=== PATIENT | male | born 1965 | race Caucasian/White ===

== ENCOUNTER → 2017-10-24 | Outpatient (CLI) | payer BC, OTHER ==
[~2017-10-24] MED LIST: GLUCAGON FOR INJ 1 MG VIAL (J1610) As Ordered; ISOVUE-370 76% 100ML VIAL (Q9967) As Ordered; VoLumen 0.1% SUSPENSION 450ML BOTTLE As Ordered
== END ==
LOC: M RAD 11:45
DX: N28.1 Cyst of kidney, acquired (principal); K42.9 Umbilical hernia without obstruction or gangrene
CPT/HCPCS: Q9967

== ENCOUNTER → 2020-02-10 | Outpatient (CLI) | payer BC, OTHER ==
[~2020-02-10] MED LIST changes: -GLUCAGON FOR INJ 1 MG VIAL (J1610) As Ordered; -ISOVUE-370 76% 100ML VIAL (Q9967) As Ordered; +LISI20TA20 PO; -VoLumen 0.1% SUSPENSION 450ML BOTTLE As Ordered; +[UNRECOGNIZED DRUG - CODE] PO
== END ==
LOC: M LABSMTC 10:34
PROVIDERS: ATTEND Anesthesiology
DX: Z03.818 Encounter for observation for suspected exposure to other biological agents ruled out (principal); Z11.59 Encounter for screening for other viral diseases
CPT/HCPCS: C9803; U0002

== ENCOUNTER 2020-02-12 07:33 | Day surgery (SDC) | payer BC, OTHER ==
[~2020-02-12] VITALS: Ht 175.3 cm; Wt 132.4 kg
[~2020-02-12 07:33] MED LIST changes: +LIDOCAINE 2% 100MG/5ML SDV (FOR ANES.) As Ordered ONE; +NS 1,000 ML IV ONE; +propofoL 200 MG/20 ML VIAL As Ordered ONE
--- NOTE | 2020-02-12 08:42 | ROOR ---
Patient Name: Sterling Rosado Procedure Date: 02/12/2020 7:36 AM Date of : 1965 Age: 54 Room: [facility] Gender: Male Note Status: Finalized Procedure: Total Colonoscopy to Cecum Indications: Screening for colorectal malignant neoplasm Providers: Fahad Murillo MD Referring MD: TOM CHRISTIAN JR, MD Requesting Provider: Medicines: Monitored Anesthesia Care Complications: No immediate complications. Procedure: Pre-Anesthesia Assessment: - The heart rate, respiratory rate, oxygen saturations, blood pressure, adequacy of pulmonary ventilation, and response to care were monitored throughout the procedure. The Colonoscope was introduced through the anus and advanced to the cecum, identified by appendiceal orifice and ileocecal valve. The colonoscopy was performed without difficulty. The patient tolerated the procedure well. The quality of the bowel preparation was excellent. Findings: The perianal and digital rectal examinations were normal. Non-bleeding internal hemorrhoids were found during retroflexion. The hemorrhoids were small and Grade I (internal hemorrhoids that do not prolapse). No other significant abnormalities were identified in a careful examination of the remainder of the colon. The exam was otherwise without abnormality on direct and retroflexion views. Impression: - Non-bleeding internal hemorrhoids. - The examination was otherwise normal on direct and retroflexion views. - No specimens collected. - The exam was otherwise normal to the cecum. Recommendation: - Patient has a contact number available for emergencies. The signs and symptoms of potential delayed complications were discussed with the patient. Return to normal activities tomorrow. Written discharge instructions were provided to the patient. - High fiber diet. - Discharge patient to home. - Continue present medications. - Repeat colonoscopy in 10 years for screening purposes. - Return to referring physician. - The findings and recommendations were discussed with the patient's family. Fahad Murillo MD Fahad Murillo MD 02/12/2020 8:42:17 AM Electronically signed by Fahad Murillo MD Number of Addenda: 0 Note Initiated On: 02/12/2020 7:36 AM Estimated Blood Loss: Estimated blood loss: none.
[2020-02-12 09:01] VITALS: BP 111/62
== END 2020-02-12 09:02 | disposition home or self-care (01) ==
LOC: M OPP 07:33
PROVIDERS: ATTEND Internal Medicine Gastroenterology
DX: Z12.11 Encounter for screening for malignant neoplasm of colon (principal); K64.0 First degree hemorrhoids; Z79.899 Other long term (current) drug therapy

== ENCOUNTER → 2021-07-26 | Outpatient (CLI) | payer BC, OTHER ==
[~2021-07-26] MED LIST changes: -LIDOCAINE 2% 100MG/5ML SDV (FOR ANES.) As Ordered ONE; +METO1TAB7 PO; -NS 1,000 ML IV ONE; -propofoL 200 MG/20 ML VIAL As Ordered ONE
== END ==
LOC: M LABSMTC 10:31
PROVIDERS: ATTEND Anesthesiology
DX: Z01.812 Encounter for preprocedural laboratory examination (principal); Z20.822 Contact with and (suspected) exposure to COVID-19

== ENCOUNTER 2021-07-30 05:59 | Day surgery (SDC) | payer BC, OTHER ==
[~2021-07-30] VITALS: Ht 172.7 cm; Wt 134.2 kg
[2021-07-30] MEDS ORDERED: ceFAZolin SOD 2 GM in IV 1 EA IV ONE (06:00)
[2021-07-30] MEDS ORDERED: LIDOCAINE 1% MDV 20ML VIAL SQ PRN (06:00)
--- OUTSIDE RECORDS SUMMARY | 2021-07-30 06:05 | CCD | Continuity of Care Document ---
Author Author Sterling BUSTILLOS MD Organization Unknown Address [address] [place] [address] Phone [phone] Care Team Providers Care Chip Frier Name Role Phone Doctor N/A AUTM Unavailable Khadar Resendez MD AUTM [phone] Problems Active Problems Provider Date Essential hypertension Onset: 09/04/2017 Syncope Onset: Dehydration Onset: Leukocytosis Onset: JOSE - acute kidney injury Onset: 0 000 Obesity Onset: Sleep apnea Onset: Obstructive sleep apnea syndrome Tab Genao MD Onset: 07/26/2021 Morbid obesity Tab Genao MD Onset: 07/26/2021 Preoperative cardiovascular examination Tab Genao MD Onset: 07/26/2021 Social History Type Date Description Comments Sex Unknown Tobacco Use Start: Unknown Patient has never smoked Recreational Drug Use Never Used Drugs Smoking Status Reviewed: 07/26/21 Patient has never smoked Allergies and adverse reactions Description No Known Drug Allergies Medications Active Medications SIG Qnty Indications Ordering Provide r Date Metoprolol Succinate ER 100mg Tablets ER 24HR 1 by mouth every day 90tabs Tab Genao MD 07/26/2021 Immunizations Description No Information Available Vital Signs Date Vital Result Comment 07/26/2021 1:30pm BP Systolic 142 mmHg BP Diastolic 100 mmHg Heart Rate 97 /min Height 68 inches 5'8" Weight 296.00 lb BMI (Body Mass Index) 45.0 kg/m2 O2 % BldC Oximetry 97 % Results Test Acquired Date Facility Test Result H/L Range Note Order 07/27/2021 [facility] Nuclear Exercise/Myoview <pending> Procedures Date Code Description Status 07/26/2021 30948 Office/Outpatient Established Mo d MDM 30-39 Min Completed 07/09/2021 70666 Hospital Initial Care Level 3 Co mpleted 07/09/2021 06102 Echocardiography, Pr ofl,Tranthoracic, Realtime Image Documentatio Completed Medical Devices Description No Information Available Encounters Type Date Location Provider Dx Diagnosis Office Visit 07/26/2021 1:30p [facility] Tab Genao MD I10 Essential (primary) hypertension R55 Syncope and collapse Z01.810 Encounter for preprocedural cardiovascular examination E66.01 Morbid (severe) obesity due to excess calories G47.33 Obstructive sleep apnea (roseline lt) (pediatric) Office Visit 07/09/2021 1:07p [facility] Juan Bustillos MD R55 Syncope and collapse R42 Dizziness and giddiness I10 Essential (primary) hyperten jaylyn N17.9 Acute kidney failure, unspec ified I50.30 Unspecified diastolic (conge stive) heart failure Assessments Date Code Description Provider 07/27/2021 R55 Syncope and collapse Govind ulloa MD 07/27/2021 R42 Dizziness and giddiness Govind Amaya MD 07/27/2021 R00.0 Tachycardia, unspecified Govind Amaya MD 07/26/2021 I10 Essential (primary) hypertension Tab Genao MD 07/26/2021 R55 Syncope and collapse Tab weber MD 07/26/2021 Z01.810 Encounter for preprocedural card iovascular examination Tab Genao MD 07/26/2021 E66.01 Morbid (severe) obesity due to e xcess calories Tab Genao MD 07/26/2021 G47.33 Obstructive sleep apnea (adult) (pediatric) Tab Genao MD 07/09/2021 R55 Syncope and collapse Juan rivas MD 07/09/2021 R42 Dizziness and giddiness Juan flores MD 07/09/2021 I10 Essential (primary) hypertension Juan Bustillos MD 07/09/2021 N17.9 Acute kidney failure, unspecifie d Juan Bustillos MD 07/09/2021 I50.30 Unspecified diastolic (congestiv e) heart failure Juan Bustillos MD 07/09/2021 R55 Syncope and collapse Juan rivas MD 07/09/2021 R42 Dizziness and giddiness Juan flores MD 07/09/2021 E86.0 Dehydration Juan metcalf MD 07/09/2021 N17.9 Acute kidney failure, unspecifie d Juan Bustillos MD Plan of Treatment Future Appointment(s):* 01/27/2022 8:00 am - Tab Genao MD at [place] [facility] 07/26/2021 - Tab Genao MD* I10 Essential (primary) hypertension * R55 Syncope and collapse * Z01.810 Encounter for preprocedural cardiovascular examination * E66.01 Morbid (severe) obesity due to excess calories * G47.33 Obstructive sleep apnea (adult) (pediatric)* Recommendations:* This gentleman's blood pressure is still somewhat elevated and therefore the dose of metoprolol ER will be increased to 100 mg once a day. To assess for underl johnson coronary disease given his recent episode of syncope a stress Cardiolite test will be performed to assess for any evidence of stress-induced ischemia. I have encouraged him to work on losing weight. Results of lipid profile will be obtained. Office follow-up in 6 months. Functional Status Description No Information Available Mental Status Description No Information Available Referrals Refer to Dr Reason for Referral Status Appt Date Juan Bustillos MD Scheduled [address] [place] [id number] [phone]
--- OUTSIDE RECORDS SUMMARY | 2021-07-30 06:05 | CCD | Continuity of Care Document ---
Author Author Sterling ATWOOD MD Organization Unknown Address [address] [place] [address] Phone [phone] Care Team Providers Care Microbiology Soil Scientist Name Role Phone Doctor N/A AUTM Unavailable Khadar Resendez MD AUTM [phone] Problems Active Problems Provider Date Essential hypertension [...] <pending> Procedures Date Code Description Status 07/26/2021 89326 Office/Outpatient Established Mo d MDM 30-39 Min Completed 07/09/2021 87556 Hospital Initial Care Level 3 Co mpleted 07/09/2021 16093 Echocardiography, Pr ofl,Tranthoracic, Realtime Image Documentatio Completed Medical Devices Description No Information Available Encounters Type Date Location Provider Dx Diagnosis Office Visit 07/26/2021 1:30p [facility] Tab Genao MD I10 Essential (primary) hypertension R55 Syncope and collapse Z01.810 Encounter for preprocedural cardiovascular examination E66.01 Morbid (severe) obesity due to excess calories G47.33 Obstructive sleep apnea (roseline lt) (pediatric) Assessments Date Code Description Provider 07/27/2021 R55 Syncope and collapse Govind ulloa MD 07/27/2021 R42 Dizziness and giddiness Govind Atwood MD 07/27/2021 R00.0 Tachycardia, unspecified Govind Atwood MD 07/26/2021 I10 Essential (primary) hypertension Tab Genao MD 07/26/2021 R55 Syncope and collapse Tab weber MD 07/26/2021 Z01.810 Encounter for preprocedural card iovascular examination Tab Genao MD 07/26/2021 E66.01 Morbid (severe) obesity due to e xcess calories Tab Genao MD 07/26/2021 G47.33 Obstructive sleep apnea (adult) (pediatric) Tab Genao MD 07/09/2021 R55 Syncope and collapse Juan rivas MD 07/09/2021 I50.30 Unspecified diastolic (congestiv e) heart failure Juan Peña MD 07/09/2021 R42 Dizziness and giddiness Juan flores MD 07/09/2021 I10 Essential (primary) hypertension Juan Peña MD 07/09/2021 E86.0 Dehydration Juan metcalf MD 07/09/2021 N17.9 Acute kidney failure, unspecifie d Jaun Peña MD Plan of Treatment Future Appointment(s):* 01/27/2022 8:00 am - Tab Genao MD at [place] [facility] 07/26/2021 - Tab Genao MD* I10 [...] Description No Information Available Referrals Refer to Reason for Referral Status Appt Date Juan Peña MD Scheduled [address] [place] [phone]
--- OUTSIDE RECORDS SUMMARY | 2021-07-30 06:06 | CCD | Continuity of Care Document ---
Author Author Sterling Resendez MD Organization Unknown Address [address] [address] Phone [phone] Care Team Providers Care Tool And Die Designer Name Role Phone Khadar Resendez JR, MD AUTM Unavailable Problems Active Problems Provider Date Pure hypercholesterolemia Khadar Resendez MD Onset: 04/06 Obstructive sleep apnea syndrome Khadar Resendez MD Onset : 04/06/2011 Essential hypertension Khadar Resendez MD Onset: 04/06/20 11 Umbilical hernia Khadar Resendez MD Onset: 12/27/2011 Morbid obesity Khadar Resendez MD Onset: 12/27/2011 Metabolic syndrome X Khadar Resendez MD Onset: 09/26/2012 Social History Type Date Description Comments Sex Unknown ETOH Use Occasionally consumes liquor Tobacco Use Start: Unknown Patient has never smoked Allergies and adverse reactions Description No Known Drug Allergies Medications Active Medications SIG Qnty Indications Ordering Provide r Date Shingrix 50mcg/0.5ML Suspension Re c administer 0.5 milliliters intramuscular, repeat in 2 to 6 months 2units Khadar Resendez MD 11/13/2019 Lisinopril-Hydrochlorothiazide 20-25mg Tablets 1 by mouth every day 90tabs I10 Carlos Ngo 08/09/2017 Immunizations Description No Information Available Vital Signs Date Vital Result Comment 05/28/2021 10:28am BP Systolic 112 mmHg BP Diastolic 78 mmHg Heart Rate 88 /min Height 68 inches 5'8" Weight 290.00 lb O2 % BldC Oximetry 95 % BMI (Body Mass Index) 44.1 kg/m2 11/25/2020 7:53am BP Systolic 110 mmHg BP Diastolic 68 mmHg Heart Rate 66 /min Height 68 inches 5'8" Weight 299.00 lb BMI (Body Mass Index) 45.5 kg/m2 Results Test Acquired Date Facility Test Result H/L Range Note Complete Blood Count 05/28/2021 [facility] Reforestation Worker: Dr Khadar Resendez [place], [place] [id number] [phone] WBC 11.0 x10*3/UL High 4.1 - 10.9 RBC 5.56 x10*6/UL 4.20 - 6.30 Hemoglobin 16.4 g/dL 12.0 - 18.0 Hematocrit 49.5 % 37.0 - 51.0 MCV 88.9 fL 80.0 - 97.0 MCH 29.4 pg 26.0 - 32.0 MCHC 33.1 g/dL 31.0 - 38.0 RDW 13.6 % 11.6 - 13.7 PLT 385 x10*3/UL 140 - 440 MPV 8.5 FL 7.8 - 11.0 Lymph % 29.2 % 10.0 - 58.5 Mid % 5.7 % 1.7 - 9.3 Neut % 65.1 % 37.0 - 92.0 Lymph # 3.2 x10*3/UL 0.6 - 4.1 Mid # 0.6 x10*3/UL 0.1 - 0.6 Neut # 7.2 x10*3/UL 2.0 - 7.8 Comprehensive Chem Profile 05/28/2021 [facility] R[facility] Worker: Dr Khadar [place] [address] [phone] Glucose 93 mg/dL 74 - 99 1 BUN 26 mg/dL High 7 - 18 Creatinine 1.3 mg/dL 0.6 - 1.3 Sodium 139 mEq/L 136 - 145 Potassium 4.5 mEq/L 3.5 - 5.1 Chloride 103 mEq/L 98 - 107 Carbon Dioxide 31 mEq/L 21 - 32 Calcium 9.1 mg/dL 8.5 - 10.1 Alk. Phosphatase 74 mg/dL 46 - 116 Total Bilirubin 0.7 mg/dL 0.2 - 1.0 Ast (Sgot) 18 U/L 15 - 37 Alt (SGPT) 31 U/L 12 - 78 Albumin 3.5 g/dL 3.4 - 5.0 Total Protein 7.7 g/dL 6.4 - 8.2 A/G Ratio 0.83 CALC Low 1.00 - 1.90 GFR 57 mL/min Low >60 GFR >= 60 mL/min >60 2 Lipid Profile 05/28/2021 [facility] Reforestation Worker: [place] [address] [phone] Cholesterol 183 mg/dL 131 - 200 Triglycerides 210 mg/dL High 30 - 150 HDL Cholesterol 33 mg/dL Low 35 - 60 LDL (Calculated) 108 CALC 50 - 159 1 100-125 mg/dL PRE-DIABET ES/FASTING >126 mg/dL DIABETES/FASTING 2 CHRONIC KIDNEY DISEASE STAGI NG PER NKF STAGE I & II GFR >= 60 NORMAL TO MILDLY DECREASED STAGE III GFR 30-59 MODERATELY DECREASED STAGE IV GFR 15-29 SEVERELY DECREASED STAGE V GFR <15 VERY LITTLE GFR LEFT ESRD GFR <15 ON [facility] SPECIALIST Procedures Date Code Description Status 03/03/2020 [id number] Colonoscopy Completed 02/12/2020 [id number] Colonoscopy Completed Medical Devices Description No Information Available Encounters Description No Information Available Assessments Date Code Description Provider 05/28/2021 I10 Essential (primary) hypertension Khadar Resendez MD 05/28/2021 R73.09 Other abnormal glucose Khadar Resendez MD 05/28/2021 E78.00 Pure hypercholesterolemia, unspe cified Khadar Resendez MD 05/28/2021 G47.33 Obstructive sleep apnea (adult) (pediatric) Khadar Resendez MD 05/28/2021 K46.9 Unspecified abdominal hernia wit hout obstruction or gangrene Khadar Resendez MD 05/28/2021 E66.01 Morbid (severe) obesity due to e xcess calories Khadar Resendez MD 05/28/2021 R94.31 Abnormal electrocardiogram [ECG] [EKG] Khadar Resendez MD 05/28/2021 Z68.41 Body mass index [BMI] 40.0-44.9, adult Khadar Resendez MD Plan of Treatment Future Appointment(s):* 12/06/2021 8:40 am - Khadar Resendez MD at [facility] 05/28/2021 - Khadar Resendez MD* I10 Essential (primary) hypertension* Comments:* Hypertension at JNC-8 guidelines * R73.09 Other abnormal glucose * E78.00 Pure hypercholesterolemia, unspecified * G47.33 Obstructive sleep apnea (adult) (pediatric) * K46.9 Unspecified abdominal hernia without obstruction or gangrene * E66.01 Morbid (severe) obesity due to excess calories * R94.31 Abnormal electrocardiogram [ECG] [EKG] * Z68.41 Body mass index [BMI] 40.0-44.9, adult Functional Status Description No Information Available Mental Status Description No Information Available Referrals Description No Information Available
--- OUTSIDE RECORDS SUMMARY | 2021-07-30 06:06 | CCD | Continuity of Care Document ---
Author Author Sterling DELGADO MD Organization Unknown Address [address] [place] [address] Phone [phone] Care Team Providers Care Program Strategist Name Role Phone Khadar Resendez MD @ [facility] Int AUTM [phone] Problems Active Problems Provider Date Essential hypertension Javon Delgado JR, MD Onset: 09/04/19 18 Social History Type Date Description Comments Sex Unknown ETOH Use 2 A Week Tobacco Use Start: Unknown Denies Smoking Recreational Drug Use Denies Drug Use Allergies and adverse reactions Description No Known Drug Allergies Medications Active Medications SIG Qnty Indications Ordering Provide r Date Lisinopril-Hydrochlorothiazide 20-25mg Tablets 1 tab every day Unknown Immunizations Description No Information Available Vital Signs Date Vital Result Comment 07/07/2021 1:40pm BP Systolic 150 mmHg BP Diastolic 88 mmHg Body Temperature 98.3 F Height 69 inches 5'9" Weight 291.00 lb BMI (Body Mass Index) 43.0 kg/m2 [place] Body Weight 160 lb Weight 131.998 kg BSA (Body Surface Area) 2.42 m2 11/06/2017 10:19am BP Systolic 138 mmHg la BP Diastolic 86 mmHg la Heart Rate 96 /min la Height 69 inches 5'9" Weight 273.00 lb BMI (Body Mass Index) 40.3 kg/m2 [place] Body Weight 160 lb Weight 123.833 kg BSA (Body Surface Area) 2.36 m2 Results Description No Information Available Procedures Description No Information Available Medical Devices Description No Information Available Encounters Description No Information Available Assessments Date Code Description Provider 07/07/2021 K43.9 Ventral hernia without obstructi on or gangrene Javon Delgado JR, MD Plan of Treatment Future Appointment(s):* 08/11/2021 1:15 pm - YESSENIA Lewis at [facility] * 07/30/2021 5:55 pm - Javon Delgado JR, MD at [facility] 07/07/2021 - Javon Delgado JR, MD* K43.9 Ventral hernia without obstruction or gangrene* Comments:* The patient has a symptomatic incisional hernia and at this point I recommendation is to proceed with operative repair of this symptomatic incisional hernia. We've discussed open as well as laparoscopic techniques of incisional hernia repair. We discussed the risks as well as benefits associated with incisional hernia repair both open and laparoscopic techniques. The patient would like to proceed with a laparoscopic technique and I agree with this . We've discussed laparoscopic versus robotic as well as open techniques and the benefits as well as the techniques associated with the procedure itself and the risks associated with the procedures. Those risks include infection bleeding damage to surrounding structure including bowel postoperative pain issues as well as recurrence of the hernia. Typical Postoperative recovery was discussed with the patient and expected postoperative course. The patient agrees to proceed with robotic assisted lap aroscopic incisional hernia repair Functional Status Description No Information Available Mental Status Description No Information Available Referrals Refer to Reason for Referral Status Appt Date Javon Delgado JR, MD ABDOMINAL WALL HERNIA Scheduled [address] [place] [phone]
--- OUTSIDE RECORDS SUMMARY | 2021-07-30 06:06 | CCD | Continuity of Care Document ---
Author Author Sterling DELGADO MD Organization Unknown Address [address] [place] [address] Phone [phone] Care Team Providers Care Meat Inspector Name Role Phone Khadar Resendez MD @ [facility] Int AUTM [phone] Problems Active Problems Provider Date Essential hypertension [...] lb BMI (Body Mass Index) 43.0 kg/m2 [place] Body Weight 160 lb Weight 131.998 kg BSA (Body Surface Area) 2.42 m2 11/06/2017 10:19am BP Systolic 138 mmHg la BP Diastolic 86 mmHg la Heart Rate 96 /min la Height 69 inches 5'9" Weight 273.00 lb BMI (Body Mass Index) 40.3 kg/m2 [place] Body Weight 160 lb Weight 123.833 kg [...] 08/11/2021 1:15 pm - YESSENIA Lewis at [facility] * 07/30/2021 5:55 pm - Javon Delgado JR, MD at [facility] 07/07/2021 - Javon Delgado JR, MD* [...] Delgado JR, MD ABDOMINAL WALL HERNIA Scheduled [address] [place] [phone]
--- OUTSIDE RECORDS SUMMARY | 2021-07-30 06:06 | CCD | Continuity of Care Document ---
Author Author Sterling Resendez MD Organization Unknown Address [address] [address] Phone [phone] Care Team Providers Care Earrings Fabricator Name Role Phone Khadar Resendez JR, MD [...] H/L Range Note Complete Blood Count 05/28/2021 [facility] Surgical Garment Inspector: Dr Khadar Resendez [place], [place] [id number] [phone] WBC 11.0 x10*3/UL High 4.1 - 10.9 [...] 2.0 - 7.8 Comprehensive Chem Profile 05/28/2021 [facility] Garment Inspector: [place] [address] [phone] Glucose 93 mg/dL 74 - 99 1 [...] 60 mL/min >60 2 Lipid Profile 05/28/2021 [facility] Surgical Garment Inspector: [place] [address] [phone] Cholesterol 183 mg/dL 131 - 200 Triglycerides [...] LITTLE GFR LEFT ESRD GFR <15 ON NURSE ORTHOPAEDIC Procedures Date Code Description Status 05/28/2021 74208 Office/Outpatient Established Mo d MDM 30-39 Min Completed 05/28/2021 41263 EKG/Interpretation & Report Comp leted 03/03/2020 [id number] Colonoscopy Completed 02/12/2020 [id number] Colonoscopy Completed Medical Devices Description No Information Available Encounters Type Date Location Provider Dx Diagnosis Office Visit 05/28/2021 10:40a [facility] Khadar Resendez MD I10 Essential (primary) hypertension R73.09 Other abnormal glucose E78.00 Pure hypercholesterolemia, u nspecified G47.33 Obstructive sleep apnea (roseline lt) (pediatric) K46.9 Unspecified abdominal hernia without obstruction or gangrene R94.31 Abnormal electrocardiogram [ ECG] [EKG] E66.01 Morbid (severe) obesity due to excess calories Z68.41 Body mass index [BMI] 40.0-4 4.9, adult Assessments Date Code Description Provider 05/28/2021 I10 Essential (primary) hypertension Khadar Resendez MD 05/28/2021 R73.09 Other abnormal glucose Khadar Resendez MD 05/28/2021 E78.00 Pure hypercholesterolemia, unspe cified Khadar Resendez MD 05/28/2021 G47.33 Obstructive sleep apnea (adult) (pediatric) Khadar Resendez MD 05/28/2021 K46.9 Unspecified abdominal hernia wit hout obstruction or gangrene Khadar Resendez MD 05/28/2021 R94.31 Abnormal electrocardiogram [ECG] [EKG] Khadar Resendez MD 05/28/2021 E66.01 Morbid (severe) obesity due to e xcess calories Khadar Resendez MD 05/28/2021 Z68.41 Body mass index [BMI] 40.0-44.9, adult Khadar Resendez MD Plan of Treatment Future Appointment(s):* 12/06/2021 8:40 am - Khadar Resendez MD at [facility] 05/28/2021 - Khadar Resendez MD* I10 Essential (primary) hypertension* Comments:* Hypertension at JNC-8 guidelines * R73.09 Other abnormal glucose * E78.00 Pure hypercholesterolemia, unspecified * G47.33 Obstructive sleep apnea (adult) (pediatric) * K46.9 Unspecified abdominal hernia without obstruction or gangrene * R94.31 Abnormal electrocardiogram [ECG] [EKG] * E66.01 Morbid (severe) obesity due to excess calories * Z68.41 Body mass index [BMI] 40.0-44.9, adult * All * Comments:* Reinforced the importance of annual flu shot as well as Shingrix. Risks, benefits discussed Functional Status Description No Information Available Mental Status Description No Information Available Referrals Description No Information Available
--- OUTSIDE RECORDS SUMMARY | 2021-07-30 06:06 | CCD | Continuity of Care Document ---
Author Author Sterling DELGADO MD Organization Unknown Address [address] [place] [address] Phone [phone] Care Team Providers Care Professor Of Early Childhood Education Name Role Phone Khadar Resendez MD @ [facility] Int AUTM [phone] Problems Active Problems Provider Date Essential hypertension [...] lb BMI (Body Mass Index) 43.0 kg/m2 [place] Body Weight 160 lb Weight 131.998 kg BSA (Body Surface Area) 2.42 m2 11/06/2017 10:19am BP Systolic 138 mmHg la BP Diastolic 86 mmHg la Heart Rate 96 /min la Height 69 inches 5'9" Weight 273.00 lb BMI (Body Mass Index) 40.3 kg/m2 [place] Body Weight 160 lb Weight 123.833 kg [...] 08/11/2021 1:15 pm - YESSENIA Lewis at [facility] * 07/30/2021 5:55 pm - Javon Delgado JR, MD at [facility] 07/07/2021 - Javon Delgado JR, MD* [...] Delgado JR, MD ABDOMINAL WALL HERNIA Scheduled [address] [place] [phone]
--- OUTSIDE RECORDS SUMMARY | 2021-07-30 06:06 | CCD | Summary of Care ---
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 [address] [facility] [address] [place] [address] Referral ID Status Reason Start Date Expiration Visits Vi sits Date Requested Authorized [id number] 1 1 Encounter Details Care Team Description Date Type Department Galina Ernst MD [address] [place] [address] Ace Hargrove MD [address] [place] [address] Lalito Mojica MD [address] [place] [address] Syncope, unspecified syncope type (Prima ry Dx); Dehydration; Leukocytosis, unspecified type 07/08/2021 Hospital [facility] [place] [facility] - Encounter [address] [place] [address] 07/10/2021 [place] [address] Allergies No known active allergiesdocumented as of this encounter (statuses as of 07/10/2021) Medications End Date Status Medication Sig Dispensed Refills Start Date Active pseudoephedrine (SUDAFED) Take 30 mg by 0 30 mg tablet mouth every 4 (four) hours if needed for congestion. 07/11/2022 Active metoprolol succinate Take 1 tablet 90 tablet 1 (TOPROL-XL) 50 mg 24 hr (50 mg total) 1 tablet by mouth 1 (one) time each day. Do not crush or chew. 07/10/2021 Discontinued (Stop Taking at Discharge) lisinopriL-hydrochlorothi Take 1 tablet 0 04/0 azide (PRINZIDE) 20-25 mg by mouth 1 1 per tablet (one) time each day. -PT NON COMPLIANT documented as of this encounter (statuses as of 07/10/2021) Active Problems Problem Noted Date Syncope 07/08/2021 Hypertension Sleep apnea JOSE (acute kidney injury) Dehydration documented as of this encounter (statuses as of 07/10/2021) Social History Date Tobacco Use Types Packs/Day Years Used Never Smoker Smokeless Tobacco: Never Used Comments Alcohol Use Standard Drinks/Week Not Currently 0 (1 standard drink = 0.6 o z pure alcohol) Sex Assigned at Date Recorded Not on file Date Recorded COVID-19 Exposure Response 07/08/2021 12:30 PM EST In the last month, have you been in contact with No / Unsure someone who was confirmed or suspected to have Coronavirus / COVID-19? documented as of this encounter Last Filed Vital Signs Reading Time Taken Comments Vital Sign 131/84 07/10/2021 11:59 AM EST Blood Pressure 71 07/10/2021 11:59 AM EST Pulse 35.9 C (96.6 F) 07/10/2021 11:59 AM EST Temperature 16 07/10/2021 11:59 AM EST Respiratory Rate 95% 07/10/2021 11:59 AM EST Oxygen Saturation - - Inhaled Oxygen Concentration 120 kg (265 lb) 07/08/2021 12:29 PM EST Weight 172.7 cm (5' 8") 07/08/2021 12:29 PM EST Height 40.29 07/08/2021 12:29 PM EST Body Mass Index documented in this encounter Discharge Summaries * Lalito Mojica MD - 07/10/2021 12:33 PM EST Inpatient Discharge Summary Admitting Provider: Ace Hargrove MD Primary Care Physician at Discharge: KHADAR CHRISTIAN MD [phone] Admission Date: 07/08/2021 Discharge Date: 07/10/2021 Presenting Problem/History of Present Illness Dehydration [E86.0] Syncope, unspecified syncope type [R55] Leukocytosis, unspecified type [D72.829] Discharge Diagnosis Syncope secondary to dehydration Secondary Discharge Diagnosis Acute kidney injury Hypertension Obesity Hospital Course 56-year-old male presented after syncope with questionable loss pulse, brief rou nd of cardiopulmonary resuscitation with apparent return circulation. Past medi rajat history consistent for hypertension. He was found to have JOSE dehydration. Lisinopril hydrochlorothiazide combo held in place at hydration. Computed aneudy graphy scan of the head was negative. Patient was admitted to the hospital on I V fluids and telemetry. Evaluated by Cardiology they recommended echocardiogram which showed a preserved left ventricular function of 50-55 percent with no major valvular heart disease . Recommendation for outpatient treadmill Cardiolite. JOSE responding to hydration. Jaswinder and diuretic combo were stopped, started on Top rol given mild sinus tachycardia. Reactive leukocytosis on arrival has since no rmalized with normal lactic acid. Suspected to have vasovagal syncope secondary to dehydration. Patient responded very well to IV hydration. Creatinine has come down to 1.4 on 07/10/2021. As of 07/10/2021 patient has been stable with no complaints. Patient was seen b y Cardiology team and scheduled for outpatient stress test. Patient seems to be medically stable and can be discharged home with close follo w-up with Cardiology team and primary care provider. Patient was encouraged to increase fluid intake. Test Results Pending At Discharge None. ROS: Denies headache, denies double blurry vision, denies lightheadedness or di zziness. Denies swallowing problems. Denies shortness of breath, cough, fever or chills. Denies chest pain or palpitation. Denies abdominal pain. Denies dy suria. Visit Vitals BP 131/84 Pulse 71 Temp (!) 35.9 C (96.6 F) (Oral) Resp 16 Ht 1.727 m (5' 8") Wt 120 kg (265 lb) SpO2 95% BMI 40.29 kg/m Smoking Status Never Smoker BSA 2.4 m Pertinent Physical Exam At Time of Discharge Physical Exam Vitals and nursing note reviewed. Constitutional: Appearance: He is well-developed and well-nourished. He is obese. HENT: Head: Normocephalic and atraumatic. Mouth/Throat: Mouth: Mucous membranes are moist. Pharynx: Oropharynx is clear. Eyes: General: No scleral icterus. Extraocular Movements: Extraocular movements intact. Conjunctiva/sclera: Conjunctivae normal. Cardiovascular: Rate and Rhythm: Normal rate and regular rhythm. Pulses: Radial pulses are 3+ on the right side and 3+ on the left side. Heart sounds: Normal heart sounds, S1 normal and S2 normal. No murmur heard. Pulmonary: Effort: Pulmonary effort is normal. No respiratory distress. Breath sounds: Normal breath sounds. No wheezing, rhonchi or rales. Abdominal: General: Bowel sounds are normal. Palpations: Abdomen is soft. Tenderness: There is no abdominal tenderness. Musculoskeletal: General: No swelling, deformity or edema. Cervical back: Neck supple. Skin: General: Skin is warm and dry. Neurological: Mental Status: He is alert and oriented to person, place, and time. Motor: No tremor. Psychiatric: Attention and Perception: Attention normal. Mood and Affect: Mood and affect and mood normal. Speech: Speech normal. Behavior: Behavior normal. Behavior is cooperative. Issues Requiring Follow-Up Cardiology follow-up for Cardiolite stress test as outpatient Outpatient Follow-Up Primary care provider within 1 week All questions have been answered Total time spent at the discharge more than 35 minutes documented in this encounter Discharge Instructions * Instructions* Sonido Wilhelm RN - 07/10/2021 Images from the original note were not included. Dehydration, Adult Dehydration is condition in which there is not enough water or other fluids in t he body. This happens when a person loses more fluids than he or she takes in. I mportant body parts cannot work right without the right amount of fluids. Any lo ss of fluids from the body can cause dehydration. Dehydration can be mild, worse, or very bad. It should be treated right away to keep it from getting very bad. What are the causes? This condition may be caused by: Conditions that cause loss of water or other fluids, such as: ? Watery poop (diarrhea). ? Vomiting. ? Sweating a lot. ? Peeing (urinating) a lot. Not drinking enough fluids, especially when you: ? Are ill. ? Are doing things that take a lot of energy to do. Other illnesses and conditions, such as fever or infection. Certain medicines, such as medicines that take extra fluid out of the body (diuretics). Lack of safe drinking water. Not being able to get enough water and food. What increases the risk? The following factors may make you more likely to develop this condition: Having a long-term (chronic) illness that has not been treated the right wa y, such as: ? Diabetes. ? Heart disease. ? Kidney disease. Being 65 years of age or older. Having a disability. Living in a place that is high above the ground or sea (high in altitude). The thinner, dried air causes more fluid loss. Doing exercises that put stress on your body for a long time. What are the signs or symptoms? Symptoms of dehydration depend on how bad it is. Mild or worse dehydration Thirst. Dry lips or dry mouth. Feeling dizzy or light-headed, especially when you stand up from sitting. Muscle cramps. Your body making: ? Dark pee (urine). Pee may be the color of tea. ? Less pee than normal. ? Less tears than normal. Headache. Very bad dehydration Changes in skin. Skin may: ? Be cold to the touch (clammy). ? Be blotchy or pale. ? Not go back to normal right after you lightly pinch it and let it go. Little or no tears, pee, or sweat. Changes in vital signs, such as: ? Fast breathing. ? Low blood pressure. ? Weak pulse. ? Pulse that is more than 100 beats a minute when you are sitting still. Other changes, such as: ? Feeling very thirsty. ? Eyes that look hollow (sunken). ? Cold hands and feet. ? Being mixed up (confused). ? Being very tired (lethargic) or having trouble waking from sleep. ? Short-term weight loss. ? Loss of consciousness. How is this treated? Treatment for this condition depends on how bad it is. Treatment should start ri ght away. Do not wait until your condition gets very bad. Very bad dehydration i s an emergency. You will need to go to a hospital. Mild or worse dehydration can be treated at home. You may be asked to: ? Drink more fluids. ? Drink an oral rehydration solution (ORS). This drink helps get the right amoun ts of fluids and salts and minerals in the blood (electrolytes). Very bad dehydration can be treated: ? With fluids through an IV tube. ? By getting normal levels of salts and minerals in your blood. This is often do ne by giving salts and minerals through a tube. The tube is passed through your nose and into your stomach. ? By treating the root cause. Follow these instructions at home: Oral rehydration solution If told by your doctor, drink an ORS: Make an ORS. Use instructions on the package. Start by drinking small amounts, about cup (120 mL) every 510 mi nutes. Slowly drink more until you have had the amount that your doctor said to rm ve. Eating and drinking Drink enough clear fluid to keep your pee pale yellow. If you were told to drink an ORS, finish the ORS first. Then, start slowly drinking other clear flui ds. Drink fluids such as: ? Water. Do not drink only water. Doing that can make the salt (sodium) level in your body get too low. ? Water from ice chips you suck on. ? Fruit juice that you have added water to (diluted). ? Low-calorie sports drinks. Eat foods that have the right amounts of salts and minerals, such as: ? Bananas. ? Oranges. ? Potatoes. ? Tomatoes. ? Spinach. Do not drink alcohol. Avoid: ? Drinks that have a lot of sugar. These include: High-calorie sports drinks. Fruit juice that you did not add water to. Soda. Caffeine. ? Foods that are greasy or have a lot of fat or sugar. General instructions Take hxhz-poj-iggjdtj and prescription medicines only as told by your docto r. Do not take salt tablets. Doing that can make the salt level in your body g et too high. Return to your normal activities as told by your doctor. Ask your doctor wh at activities are safe for you. Keep all follow-up visits as told by your doctor. This is important. Contact a doctor if: You have pain in your belly (abdomen) and the pain: ? Gets worse. ? Stays in one place. You have a rash. You have a stiff neck. You get angry or annoyed (irritable) more easily than normal. You are more tired or have a harder time waking than normal. You feel: ? Weak or dizzy. ? Very thirsty. Get help right away if you have: Any symptoms of very bad dehydration. Symptoms of vomiting, such as: ? You cannot eat or drink without vomiting. ? Your vomiting gets worse or does not go away. ? Your vomit has blood or green stuff in it. Symptoms that get worse with treatment. A fever. A very bad headache. Problems with peeing or pooping (having a bowel movement), such as: ? Watery poop that gets worse or does not go away. ? Blood in your poop (stool). This may cause poop to look black and tarry. ? Not peeing in 68 hours. ? Peeing only a small amount of very dark pee in 68 hours. Trouble breathing. These symptoms may be an emergency. Do not wait to see if the symptoms will go a way. Get medical help right away. Call your local emergency services (911 in the [place] Do not drive yourself to the hospital. Summary Dehydration is a condition in which there is not enough water or other flui ds in the body. This happens when a person loses more fluids than he or she take s in. Treatment for this condition depends on how bad it is. Treatment should be started right away. Do not wait until your condition gets very bad. Drink enough clear fluid to keep your pee pale yellow. If you were told to drink an oral rehydration solution (ORS), finish the ORS first. Then, start slow ly drinking other clear fluids. Take rbik-zov-ifefeth and prescription medicines only as told by your docto r. Get help right away if you have any symptoms of very bad dehydration. This information is not intended to replace advice given to you by your health c are provider. Make sure you discuss any questions you have with your health care provider. Document Revised: 03/19/2020 Document Reviewed: 03/19/2020 [employer] Patient Education 2020 [employer]. documented in this encounter Progress Notes * CHERRY Everett - 07/09/2021 9:42 AM EST HOSPITALIST PROGRESS NOTE Name: Orlando Bolanos Date of : 1965 CSN: [id number] Date of Admission: 07/08/2021 LOS: 1 day Subjective Orlando Bolanos 56 y.o. male has been seen and examined. Chart reviewed. Discu ssed with Cardiology and at bedside. Denies acute complaints. Review of Systems Constitutional: Negative for appetite change, fatigue, fever and unexpected weig ht change. HENT: Negative for congestion, ear pain, rhinorrhea and sore throat. Eyes: Negative for pain, discharge, redness and visual disturbance. Respiratory: Negative for cough, shortness of breath and wheezing. Cardiovascular: Negative for chest pain, palpitations and leg swelling. Gastrointestinal: Negative for abdominal pain, blood in stool, constipation, harriet rrhea, nausea and vomiting. Endocrine: Negative for polydipsia and polyuria. Genitourinary: Negative for difficulty urinating, dysuria, frequency and hematur ia. Musculoskeletal: Negative for arthralgias, back pain, joint swelling and neck pa in. Skin: Negative for rash and wound. Allergic/Immunologic: Negative for environmental allergies. Neurological: Negative for dizziness, weakness, light-headedness, numbness and h eadaches. Hematological: Negative for adenopathy. Does not bruise/bleed easily. Psychiatric/Behavioral: Negative for dysphoric mood and sleep disturbance. The p atient is not nervous/anxious. Objective Visit Vitals BP 123/75 Pulse 82 Temp 36.4 C (97.5 F) (Oral) Resp 18 Ht 1.727 m (5' 8") Wt 120 kg (265 lb) SpO2 94% Comment: RA BMI 40.29 kg/m Smoking Status Never Smoker BSA 2.4 m Temp: [36.4 C (97.5 F)] 36.4 C (97.5 F) Heart Rate: [81-96] 82 Resp: [18-19] 18 BP: (108-132)/(69-79) 123/75 Physical Exam Vitals and nursing note reviewed. Constitutional: General: He is not in acute distress. Appearance: He is well-developed. He is obese. HENT: Head: Normocephalic and atraumatic. Right Ear: External ear normal. Left Ear: External ear normal. Nose: Nose normal. Eyes: General: No scleral icterus. Right eye: No discharge. Left eye: No discharge. Conjunctiva/sclera: Conjunctivae normal. Pupils: Pupils are equal, round, and reactive to light. Cardiovascular: Rate and Rhythm: Normal rate and regular rhythm. Heart sounds: No murmur heard. Pulmonary: Effort: Pulmonary effort is normal. No respiratory distress. Breath sounds: Decreased breath sounds present. No wheezing or rales. Abdominal: General: Bowel sounds are normal. There is no distension. Palpations: Abdomen is soft. There is no mass. Tenderness: There is no abdominal tenderness. Hernia: No hernia is present. Musculoskeletal: General: No tenderness or deformity. Normal range of motion. Cervical back: Normal range of motion and neck supple. Lymphadenopathy: Cervical: No cervical adenopathy. Skin: General: Skin is warm and dry. Capillary Refill: Capillary refill takes less than 2 seconds. Findings: No rash. Neurological: Mental Status: He is alert and oriented to person, place, and time. Cranial Nerves: No cranial nerve deficit. Sensory: No sensory deficit. Motor: No abnormal muscle tone. Coordination: Coordination normal. Psychiatric: Behavior: Behavior normal. Thought Content: Thought content normal. Judgment: Judgment normal. I have reviewed the available lab and diagnostic results as appropriate. Lab Results Component Value Date GLUCOSE 165 (H) 07/09/2021 CALCIUM 9.0 07/09/2021 NA 138 07/09/2021 K 4.1 07/09/2021 CO2 27.3 07/09/2021 CL 105.0 07/09/2021 BUN 28 (H) 07/09/2021 CREATININE 1.45 (H) 07/09/2021 Lab Results Component Value Date WBC 9.91 07/09/2021 HGB 14.2 07/09/2021 HCT 45.4 07/09/2021 MCV 92.7 07/09/2021 PLT 312 07/09/2021 Current I/O I/O last 3 completed shifts: In: 587.5 (4.9 mL/kg) [I.V.:587.5 (4.9 mL/kg)] Out: - (0 mL/kg) Weight: 120.2 kg No intake/output data recorded. Assessment Principal Problem: Syncope Active Problems: Hypertension Sleep apnea Plan Syncope Appreciate cardiology input Suspected vasovagal secondary to dehydration Echo normal LV systolic function, LVEF 50-55 percent, no major valvular heart di sease CT head negative Treadmill Cardiolite JOSE Dehydration plus lisinopril/hydrochlorothiazide combo Continue hydration Appropriate response Cr 2.21-->1.45 Hypertension Hold Jaswinder and diuretic Started on Toprol given mild sinus tach Reactive leukocytosis, resolved 19.59-->9.91 Normal lactic DVT prophylaxis: Lovenox Code status: Full code Anticipate discharge home in the morning Breanna Cota [employer] This note was created with assistance of the [employer] dictation software. Please e xcuse any typographical or grammatical errors. documented in this encounter H&P Notes * Ace Hargrove MD - 07/08/2021 7:14 PM EST [facility] HISTORY AND PHYSICAL Name: Orlando Bolanos Date of : 1965 CSN: [id number] Date of Admission: 07/08/2021 CHIEF COMPLAINT: Chief Complaint Patient presents with Syncope Dizziness CODE STATUS: Full Code PCP: No primary care provider on file. HPI: History was gathered primarily from the patient; his was present at bedside and a witness to the event was called on the phone. The patient is a 56-year-o ld male with a past medical history of hypertension who presented with a chief c oncern of sudden loss of consciousness/unresponsiveness. Patient was in his [facility] state of health until this afternoon, while after exerting himself slightly, he sat down became diaphoretic and warm and lost consciousness. He was found s lumped over in his chair and cardiopulmonary resuscitation was initiated by nurs e practitioner and other medical staff at his workplace. An AED evidenced a non shockable rhythm. After around 5 minutes the patient regained consciousness, b reathing and had no evidence of postictal symptoms. He subsequently presented to the emergency department. In route he was noted to have hypotension and was started on intravenous normal saline. Of note his father suddenly of his first heart attack at age 57. Additional ly he had an episode of syncope around 12 years ago that occurred after a spell of laughing. He underwent Holter monitoring at that time which was unrevealing. Past Medical History: Diagnosis Date Hypertension Past Surgical History: Procedure Laterality Date HERNIA REPAIR Social History Tobacco Use Smoking status: Never Smoker Smokeless tobacco: Never Used Substance Use Topics Alcohol use: Not Currently Drug use: Never No family history on file. Review of Systems PREVENTIVE MEASURES: Visit Vitals BP 108/74 Pulse (!) 95 Temp 37.1 C (98.8 F) (Oral) Resp 18 Ht 1.727 m (5' 8") Wt 120 kg (265 lb) SpO2 96% BMI 40.29 kg/m Smoking Status Never Smoker BSA 2.4 m Physical Exam Vitals and nursing note reviewed. Constitutional: Appearance: He is well-developed. HENT: Head: Normocephalic and atraumatic. Eyes: Conjunctiva/sclera: Conjunctivae normal. Cardiovascular: Rate and Rhythm: Normal rate and regular rhythm. Heart sounds: No murmur heard. Pulmonary: Effort: Pulmonary effort is normal. No respiratory distress. Breath sounds: Normal breath sounds. Abdominal: Palpations: Abdomen is soft. Tenderness: There is no abdominal tenderness. Musculoskeletal: Cervical back: Neck supple. Skin: General: Skin is warm and dry. Capillary Refill: Capillary refill takes less than 2 seconds. Neurological: Mental Status: He is alert. CURRENTS LABS Results from last 7 days Lab Units 07/08/21 1520 WBC x1000/ul 19.59* HEMOGLOBIN g/dl 14.9 HEMATOCRIT % 47.1 PLATELETS x1000/ul 361 Results from last 7 days Lab Units 07/08/21 1520 SODIUM mEq/L 136 POTASSIUM mEq/L 4.0 CHLORIDE mEq/L 102.0 CO2 mMol/L 26.5 BUN mg/dl 26* CREATININE mg/dl 2.21* CALCIUM mg/dl 9.2 PROTEIN TOTAL g/dl 7.9 ALK PHOS mIU/ml 75 ALT IU/L 27 AST IU/L 18 GLUCOSE mg/dl 127* Results from last 7 days Lab Units 07/08/21 1520 INR 1.2* Results from last 7 days Lab Units 07/08/21 1520 SED RATE mm/hr 62* No results found for: TROPONINT I have reviewed all available Labs MEDICATION: No current facility-administered medications for this encounter. Current Outpatient Medications: pseudoephedrine (SUDAFED) 30 mg tablet, Take 30 mg by mouth every 4 (fou r) hours if needed for congestion., Disp: , Rfl: lisinopriL-hydrochlorothiazide (PRINZIDE) 20-25 mg per tablet, Take 1 ta blet by mouth 1 (one) time each day. -PT NON COMPLIANT, Disp: , Rfl: I have reviewed all available medications CURRENT IMAGING: PROBLEM LIST Principal Problem: Syncope ASSESSMENT and PLAN: Sudden Loss of Consiousness/Syncope/Presumed Cardiac Arrest - patient's initial hypotension, preserved capillary refill following resuscitation, JOSE and absence of myocardial injury suggests that the event was most likely syncopal and relat ed to hypovolemia at least partially from diuretic use. It would be unusual for any hypoxemic, metabolic or cardiogenic causes to not cause troponin leak. How ever valvular, other causes of outflow obstruction are possible. Arrhythmogenic causes should be considered with abnormal ECG. - ECG - RVCD (+) low voltage, not impressive for LVH or HOWARD, delta wave in V3? 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 Patient states that he was w alking the present course, then he was headed back to his desk, he remembers sta rting to feel faint and lightly dizzy, very sweaty and clammy next thing he nito mbers is he was in his chair. He had a number of people around him who basicall y stated that he had passed out. On assessment in the emergency department [place] ent noted to be significantly dehydrated with JOSE with creatinine of 2.21, with a WBC count of 19,000. Patient was placed on aggressive IV hydration with impro vement in creatinine to 1.4 this morning. He has remained on telemetry overnigh t with no arrhythmias noted. He is slightly tachycardic, sinus, to the 90s to 1 00s on my assessment. He denies feeling any chest pain or palpitations during t he syncopal event. Troponin has been negative x2. TTE, 07/09/2021:Normal LV systolic function, LVEF 50-55 percent, no major valvul ar heart disease. Syncope likely due to dehydration with likely orthostasis - hold patient's hydrochlorothiazide and lisinopril for now - advised patient that he needs to stay hydrated in the future. Would discontin ue the hydrochlorothiazide going forward. There are number of alternate agents that we can use for blood pressure control - patient with no evidence of LV dysfunction - continue 24 hour telemetry monitoring - will plan for outpatient stress testing with treadmill Cardiolite and we will consider further event monitoring if need be. Thank for allowing us participate in this patient's care we will continue to fol low with you. 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 Patient states that he was walking the present course, t hen he was headed back to his desk, he remembers starting to feel faint and ligh tly dizzy, very sweaty and clammy next thing he remembers is he was in his chair . He had a number of people around him who basically stated that he had passed out. On assessment in the emergency department patient noted to be significantl y dehydrated with JOSE with creatinine of 2.21, with a WBC count of 19,000. [place] ent was placed on aggressive IV hydration with improvement in creatinine to 1.4 this morning. He has remained on telemetry overnight with no arrhythmias noted. He is slightly tachycardic, sinus, to the 90s to 100s on my assessment. He de nies feeling any chest pain or palpitations during the syncopal event. Troponin has been negative x2. Syncope Associated symptoms include dizziness. Dizziness Associated symptoms include fatigue. Review of Systems Review of Systems Constitutional: Positive for fatigue. Cardiovascular: Positive for syncope. Neurological: Positive for dizziness and syncope. Objective Vital signs for last 24 hours: Temp: [37.1 C (98.8 F)] 37.1 C (98.8 F) Heart Rate: [81-102] 81 Resp: [14-23] 18 BP: (101-117)/(54-74) 108/74 Intake/Output this shift: No intake/output data recorded. Physicial Exam Physical Exam Vitals reviewed. HENT: Head: Normocephalic. Nose: Nose normal. Mouth/Throat: Mouth: Mucous membranes are moist. Eyes: Extraocular Movements: Extraocular movements intact. Cardiovascular: Rate and Rhythm: Regular rhythm. Tachycardia present. Pulses: Normal pulses. Heart sounds: Normal heart sounds. Pulmonary: Breath sounds: Normal breath sounds. Abdominal: Palpations: Abdomen is soft. Musculoskeletal: General: Normal range of motion. Skin: General: Skin is warm. Neurological: Mental Status: He is alert and oriented to person, place, and time. Labs CBC: Lab Results Component Value Date WBC 9.91 07/09/2021 RBC 4.90 07/09/2021 BMP: Lab Results Component Value Date GLUCOSE 165 (H) 07/09/2021 CO2 27.3 07/09/2021 BUN 28 (H) 07/09/2021 CREATININE 1.45 (H) 07/09/2021 CALCIUM 9.0 07/09/2021 Coagulation: Lab Results Component Value Date PT 13.3 (H) 07/08/2021 INR 1.2 (H) 07/08/2021 Cardiac markers: No results found for: CKMB, TROPONINT, MYOGLOBIN documented in this encounter Nursing Notes * Poonam Bunch RN - 07/09/2021 6:00 PM EST Patient resting comfortably, call price within reach. No change in telemetry. Rep ort given to ROSA Ramirez. * Poonam Bunch RN - 07/09/2021 2:15 PM EST Patient admitted to room 312 with telemetry #40 on. ICU called to verify and pat ient was in SR at 76. Oriented to unit. documented in this encounter ED Notes * Catrachito Foote RN - 07/08/2021 12:29 PM EST PER EMS REPORT PT WENT UNRESPONSIVE AT WORK. AGONAL BREATHING, CPR WAS PREFORME D FOR 1-2 MINUTES WITH ROSC. PT STATES HE WAS WALKING BECAME LIGHTHEADED, DIAP HORETIC, SAT DOWN BECAME DIZZY AND WOKE UP ON THE FLOOR WITH CPR IN PROGRESS. 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 Per people in the room patient became coy and pale, patient collapsed to the floor, co-worker started to do compressions as they could not feel a pulse and they we re not sure if patient was breathing, they applied an aED on to the patient, no shock was advised, after 1 round of compressions patient was awake alert and luis ented x3. Patient currently has no acute complaints, patient states this never happened to him before. Syncope Episode history: Single Most recent episode: Today Progression: Resolved Chronicity: New Context: normal activity Witnessed: yes Relieved by: Nothing Worsened by: Nothing Ineffective treatments: compressions. Associated symptoms: no anxiety, no chest pain, no confusion, no diaphoresis, no difficulty breathing, no dizziness, no fever, no focal sensory loss, no focal w eakness, no malaise/fatigue, no nausea, no palpitations, no recent fall, no rece nt surgery, no rectal bleeding, no seizures, no shortness of breath, no visual c hange and no vomiting Risk factors: no congenital heart disease and no coronary artery disease No data recorded Patient History Past Medical History: Diagnosis Date Hypertension Past Surgical History: Procedure Laterality Date HERNIA REPAIR No family history on file. Social History Tobacco Use Smoking status: Never Smoker Smokeless tobacco: Never Used Substance Use Topics Alcohol use: Not Currently Drug use: Never Review of Systems Review of Systems Constitutional: Negative for chills, diaphoresis, fever and malaise/fatigue. HENT: Negative for ear pain and sore throat. Eyes: Negative for pain and visual disturbance. Respiratory: Negative for cough and shortness of breath. Cardiovascular: Positive for syncope. Negative for chest pain and palpitations. Gastrointestinal: Negative for abdominal pain, nausea and vomiting. Genitourinary: Negative for dysuria and hematuria. Musculoskeletal: Negative for arthralgias and back pain. Skin: Negative for color change and rash. Neurological: Negative for dizziness, focal weakness, seizures and syncope. Psychiatric/Behavioral: Negative for confusion. All other systems reviewed and are negative. Physical Exam ED Triage Vitals Temp Pulse Resp BP -- -- -- -- SpO2 Temp src Heart Rate Source Patient Position -- -- -- -- BP Location FiO2 (%) -- -- Physical Exam Vitals and nursing note reviewed. Constitutional: Appearance: He is well-developed. HENT: Head: Normocephalic and atraumatic. Eyes: Conjunctiva/sclera: Conjunctivae normal. Cardiovascular: Rate and Rhythm: Normal rate and regular rhythm. Pulses: Normal pulses. Heart sounds: Normal heart sounds. No murmur heard. Pulmonary: Effort: Pulmonary effort is normal. No respiratory distress. Breath sounds: Normal breath sounds. Abdominal: General: Abdomen is flat. Bowel sounds are normal. Palpations: Abdomen is soft. Tenderness: There is no abdominal tenderness. Musculoskeletal: Cervical back: Neck supple. Skin: General: Skin is warm and dry. Neurological: General: No focal deficit present. Mental Status: He is alert and oriented to person, place, and time. Labs Reviewed CBC AND DIFFERENTIAL - Abnormal Result Value WBC 19.59 (*) RBC 5.09 Hemoglobin 14.9 Hematocrit 47.1 MCV 92.5 MCH 29.3 MCHC 31.6 (*) RDW 13.9 Platelet Count 361 MPV 10.1 Neutrophils 76.6 (*) Lymphocytes 13.0 (*) Monocytes 8.0 Eosinophils 0.7 Basophils 0.6 Immature Granulocytes 1.1 (*) Nucleated RBCs 0.00 Abs. Neutrophils 15.01 (*) Abs. Lymphocyte 2.55 Abs. Monocytes 1.57 (*) Abs. Eosinophils 0.14 Abs. Basophils 0.11 Abs. Immature Gran. 0.21 (*) Abs. Nucleated RBCs 0.00 COMPREHENSIVE METABOLIC PANEL - Abnormal AST 18 ALT 27 Alkaline Phosphatase 75 Total Bilirubin 1.10 (*) Blood Urea Nitrogen 26 (*) Creatinine 2.21 (*) Glomerular Filtration Rate 31.00 Glucose 127 (*) Calcium 9.2 Total Protein 7.9 Albumin 3.3 (*) Sodium 136 Potassium 4.0 Chloride 102.0 Carbon Dioxide 26.5 Anion Gap 11.5 PROTHROMBIN TIME NO THERAPY OR UNKNOWN - Abnormal PT, No Coag Tx/Coag Tx Unk 13.3 (*) INR (No Coag Tx/Coag Tx Unk) 1.2 (*) N-TERMINAL PROBNP (BNP) NTproBNP 44 MAGNESIUM Magnesium 2.2 CBC AND DIFFERENTIAL COMPREHENSIVE METABOLIC PANEL MAGNESIUM PROTHROMBIN TIME NO THERAPY OR UNKNOWN N-TERMINAL PROBNP (BNP) POCT TROPONIN UNSOLICITED RESULTS Troponin, iSTAT 0.00 POCT SARS-COV-2, PCR UNSOLICITED RESULTS POC SARS-CoV-2 NEGATIVE First test? No Employed in healthcare? No Symptomatic? No Hospitalized? No In congregate care setting? No ? No In ICU? No POCT TROPONIN UNSOLICITED RESULTS Troponin, iSTAT 0.00 POCT I-STAT TROPONIN DOCKED DEVICE POCT SARS-COV-2 (RAPID [place] ID NOW) POCT I-STAT TROPONIN DOCKED DEVICE ED Course & MDM Final diagnoses: [R55] Syncope, unspecified syncope type MDM Number of Diagnoses or Management Options Syncope, unspecified syncope type Diagnosis management comments: Blood work shows mild kidney disease as well, pat ient had a witnessed unresponsive episode at work, worse coworkers had to perfor m chest compressions, patient will be admitted into the hospital for further joyce luation and treatment. Amount and/or Complexity of Data Reviewed Clinical lab tests: reviewed Tests in the radiology section of CPT: reviewed Tests in the medicine section of CPT: reviewed . Disposition Comment: Telemetry Expected:: Telemetry Critical Care Galina Ernst MD 07/08/211651 documented in this encounter Miscellaneous Notes * Hospital Course - Lalito Mojica MD - 07/09/2021 5:13 PM EST 56-year-old male presented after syncope with questionable loss pulse, brief rou nd of cardiopulmonary resuscitation with apparent return circulation. Past [facility] history consistent for hypertension. He was found to have JOSE dehydration. Lisinopril hydrochlorothiazide combo held in place at hydration. Computed aneudy graphy scan of the head was negative. Patient was admitted to the hospital on I V fluids and telemetry. Evaluated by Cardiology they recommended echocardiogram which showed a preserved left ventricular function of 50-55 percent with no major valvular heart disease . Recommendation for outpatient treadmill Cardiolite. JOSE responding to hydration. Jaswinder and diuretic combo were stopped, started on Top rol given mild sinus tachycardia. Reactive leukocytosis on arrival has since no rmalized with normal lactic acid. Suspected to have vasovagal syncope secondary to dehydration. Patient responded very well to IV hydration. Creatinine has come down to 1.4 on 07/10/2021. As of 07/10/2021 patient has been stable with no complaints. Patient was seen b y Cardiology team and scheduled for outpatient stress test. Patient seems to be medically stable and can be discharged home with close follo w-up with Cardiology team and primary care provider. Patient was encouraged to increase fluid intake. documented in this encounter Plan of Treatment Order Schedule Name Type Priority Associated Diag noses STAT for 1 Occurrences starting 07/08/20 21 until 07/08/2021 Prothrombin time no Lab STAT therapy or unknown Once for 1 Occurrences starting 07/08/20 21 until 07/08/2021 Sedimentation rate, Lab Routine automated Once for 1 Occurrences starting 07/08/20 21 until 07/08/2021 Urine Protein/Creatinine Lab Routine Ratio (random) STAT for 1 Occurrences starting 07/09/20 21 until 07/09/2021 Urinalysis w/Microscopic Lab STAT & Culture if Indicated Health Maintenance Due Date Last Done Comments Colonoscopy 1965 Colorectal Cancer 1965 Screening FIT-DNA 1965 FOBT Annual 1965 Sigmoidoscopy 1965 MMR Vaccines (1 of - 1967 Standard series) Varicella Vaccines (1 of 1967 2 - 2-dose childhood series) DTaP,Tdap,and Td Vaccines 1973 (1 - Tdap) COVID-19 Vaccine (1) 1978 Influenza Vaccine (#1) 2021 Pneumococcal Vaccine: 65+ 2031 Years (1 of 1 - PPSV23) HIB Vaccines Aged Out No longer eligible based on patient's age to complete this topic Hepatitis A Vaccines Aged Out No longer eligibl e based on patient's age to complete this topic Hepatitis B Vaccines Aged Out No longer eligibl e based on patient's age to complete this topic IPV Vaccines Aged Out No longer eligible based on patient's age to complete this topic documented as of this encounter Procedures Comments Procedure Name Priority Date/Time Associated Diag nosis BASIC METABOLIC PANEL Routine 07/10/2021 Syncope, unspecified 5:47 AM EST syncope type ECG 12-LEAD STAT 07/09/2021 Syncope, unspec ified 3:38 PM EST syncope type OBSTRUCTIVE SLEEP APNEA Routine 07/09/2021 CONSULT 2:11 PM EST HC CBC W/ DIFFERENTIAL STAT 07/09/2021 Syncope , unspecified 10:35 AM EST syncope type MAGNESIUM STAT 07/09/2021 Syncope, unspec ified 10:35 AM EST syncope type COMPREHENSIVE METABOLIC STAT 07/09/2021 Syncop e, unspecified PANEL 10:35 AM EST syncope type ECHO 2D MODE PANEL (WITH Routine 07/09/2021 COLOR FLOW AND DOPPLER) 10:21 AM EST C-REACTIVE PROTEIN Routine 07/09/2021 Syncope, un specified 5:21 AM EST syncope type LACTIC ACID STAT 07/08/2021 Syncope, unspec ified 5:30 PM EST syncope type POCT TROPONIN UNSOLICITED STAT 07/08/2021 Sync ope, unspecified RESULTS 4:19 PM EST syncope type ECG 12-LEAD STAT 07/08/2021 Syncope, unspec ified 4:15 PM EST syncope type PROTHROMBIN TIME NO STAT 07/08/2021 Syncope, u nspecified THERAPY OR UNKNOWN 3:20 PM EST syncope type N-TERMINAL PROBNP (BNP) STAT 07/08/2021 Syncop e, unspecified 3:20 PM EST syncope type PROCALCITONIN TEST STAT 07/08/2021 Syncope, un specified 3:20 PM EST syncope type SEDIMENTATION RATE, STAT 07/08/2021 Syncope, u nspecified AUTOMATED 3:20 PM EST syncope type HC CBC W/ DIFFERENTIAL STAT 07/08/2021 Syncope , unspecified 3:20 PM EST syncope type MAGNESIUM STAT 07/08/2021 Syncope, unspec ified 3:20 PM EST syncope type COMPREHENSIVE METABOLIC STAT 07/08/2021 Syncop e, unspecified PANEL 3:20 PM EST syncope type CT HEAD WO CONTRAST STAT 07/08/2021 1:30 PM EST POCT SARS-COV-2, PCR Routine 07/08/2021 Syncope, unspecified UNSOLICITED RESULTS 1:20 PM EST syncope type XR CHEST 1 VIEW STAT 07/08/2021 12:51 PM EST POCT TROPONIN UNSOLICITED STAT 07/08/2021 Sync ope, unspecified RESULTS 12:40 PM EST syncope type ECG 12-LEAD STAT 07/08/2021 Syncope, unspec ified 12:22 PM EST syncope type documented in this encounter Results * Basic metabolic panel (07/10/2021 5:47 AM EST) Pathologist Signature Component Value Ref Test Method Analysis Performed A t Range Time Blood Urea Nitrogen 21 (H) 7 - 18 07/10/2021 [facility] mg/dl 7:50 AM EST Creatinine 1.18 (H) 0.67 - 07/10/2021 [facility] 1.17 7:50 AM mg/dl EST Comment: N-Acetylcysteine (NAC) and Metamizole have the potential to falsely depress Creatinine results. Baseline values before medication adminstration are recommended. Patients undergoing treatment with phenindione will have falsely depressed results. Patients on phenindione therapy should be tested with an alternative CREA method. Toxic levels of acetaminophen may lead to falsely depressed results for patient samples. Glomerular 64.00 mL/min/1 07/10/2021 [facility] Filtration Rate .73m2 7:50 AM EST Comment: GFR Reference Ranges: Normal Function or Mild Renal Disease,if clinically at risk: >or= 60 Moderately decreased: 30 - 59 Severely decreased: 15 - 29 Renal Failure: <15 Please note that the MDRD equation requires an additional adjustment for -Americans (multiply the GFR result by 1.210). Glomarular Filtration Rate (GFR) is estimated based on the MDRD equation, which assumes a steady state for creatinine ([place] Int Med 139/2 137-149, 2003), as recommended by the National Kidney Disease Education Program in conjunction with the National Institutes of Health and the National Kidney Foundation. The [place] method used in calculating this result is traceable to IDMS standards. Glucose 83 70 - 110 07/10/2021 [facility] mg/dl 7:50 AM EST Comment: Sulfasalazine has the potential to falsely depress Glucose results. Sulfapyridine has the potential to falsely elevate Glucose results. Baseline values before medication administration are recommended. Calcium 8.5 8.5 - 07/10/2021 [facility] 10.1 7:50 AM mg/dl EST Sodium 142 136 - 07/10/2021 [facility] 145 7:50 AM mEq/L EST Potassium 4.6 3.5 - 07/10/2021 [facility] 5.1 7:50 AM mEq/L EST Chloride 109.0 (H) 98.0 - 07/10/2021 [facility] 107.0 7:50 AM mEq/L EST Carbon Dioxide 27.7 21.0 - 07/10/2021 [facility] 32.0 7:50 AM mMol/L EST Anion Gap 9.9 7.0 - 07/10/2021 [facility] 15.0 7:50 AM EST Comment: The above 10 analytes were performed by [facility] [address] [place] [id number],[place] [address] Anatomical Location / Laterality Collection Method / Volume Leatha ection Time Received Time Specimen (Source) 07/10/2021 5:47 AM EST 07/10/20 7:12 AM EST Serum or Plasma Breanna Cota [facility] LAB BLOOD ORDERABLES [facility] Code Phone Number Performing [place] [address] DENIA PATEL MD [facility] [address] [place] [address] * ECG 12 lead (07/09/2021 3:38 PM EST) Anatomical Location / Laterality Collection Method / Volume Leatha ection Time Received Time Specimen (Source) 07/09/2021 3:38 PM EST Narrative [facility] - 07/09/2021 3:38 PM EST Test Date: 2021-07-09 Pat Name: ORLANDO BOLANOS Department: 3A Room: [facility] Gender: M 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: : 1965 Requested By: BREANNA COTA Order Number: [id number] Tom MD: JUDY NERI Measurements Intervals [place] Rate: 73 P: 64 [place]: 141 QRS: 67 QRSD: 126 T: 33 QT: 404 QTc: 446 Interpretive Statements Sinus rhythm RsR1 in V1 Compared to ECG 07/08/2021 16:15:28 Sinus tachycardia no longer present Electronically Signed On 07-09-2021 17:43:59 EST by JUDY NERI Breanna Cota [facility] ECG ORDERABLES [facility] Code Phone Number Performing Address Organization [facility] * Magnesium (07/09/2021 10:35 AM EST) Pathologist Signature Component Value Ref Test Method Analysis Performed A t Range Time Magnesium 2.0 1.6 - 07/09/2021 [facility] 2.6 11:20 AM mg/dl EST Comment: The above 1 analytes were performed by [facility] [address] [place] [address], ,[place] [address] Anatomical Location / Laterality Collection Method / Volume Leatha ection Time Received Time Specimen (Source) 07/09/2021 10:35 AM EST 07/09/20 10:45 AM EST Serum or Plasma Ace Hargrove MD LAB BLOOD ORDERABLES City/State/ZIP Code Phone Number Performing [place] [address] DENIA PATEL MD [facility] [address] [facility] * Comprehensive metabolic panel (07/09/2021 10:35 AM EST) Pathologist Signature Component Value Ref Test Method Analysis Performed A t Range Time AST 17 15 - 37 07/09/2021 [facility] IU/L 11:20 AM EST Comment: Sulfasalazine and sulfapyridine have the potential to falsely depress Aspartate Aminotransferase results. Baseline values before medication administration are recommended. ALT 25 16 - 61 07/09/2021 [facility] IU/L 11:20 AM EST Comment: Sulfasalazine and sulfapyridine have the potential to falsely depress Alanine Aminotransferase results. Baseline values before medication administration are recommended. Alkaline Phosphatase 65 50 - 136 07/09/2021 [facility] mIU/ml 11:20 AM EST Total Bilirubin 0.90 0.20 - 07/09/2021 [facility] 1.00 11:20 AM mg/dl EST Blood Urea Nitrogen 28 (H) 7 - 18 07/09/2021 [facility] mg/dl 11:20 AM EST Creatinine 1.45 (H) 0.67 - 07/09/2021 [facility] 1.17 11:20 AM mg/dl EST Comment: N-Acetylcysteine (NAC) and Metamizole have the potential to falsely depress Creatinine results. Baseline values before medication adminstration are recommended. Patients undergoing treatment with phenindione will have falsely depressed results. Patients on phenindione therapy should be tested with an alternative CREA method. Toxic levels of acetaminophen may lead to falsely depressed results for patient samples. Glomerular 51.00 mL/min/1 07/09/2021 [facility] Filtration Rate .73m2 11:20 AM EST Comment: GFR Reference Ranges: Normal Function or Mild Renal Disease,if clinically at risk: >or= 60 Moderately decreased: 30 - 59 Severely decreased: 15 - 29 Renal Failure: <15 Please note that the MDRD equation requires an additional adjustment for -Americans (multiply the GFR result by 1.210). Glomarular Filtration Rate (GFR) is estimated based on the MDRD equation, which assumes a steady state for creatinine ([place]aly[place] Int Med 139/2 137-149, 2003), as recommended by the National Kidney Disease Education Program in conjunction with the National Institutes of Health and the National Kidney Foundation. The [place] method used in calculating this result is traceable to IDMS standards. Glucose 165 (H) 70 - 110 07/09/2021 [facility] mg/dl 11:20 AM EST Comment: Sulfasalazine has the potential to falsely depress Glucose results. Sulfapyridine has the potential to falsely elevate Glucose results. Baseline values before medication administration are recommended. Calcium 9.0 8.5 - 07/09/2021 [facility] 10.1 11:20 AM mg/dl EST Total Protein 7.5 6.4 - 07/09/2021 [facility] 8.2 g/dl 11:20 AM EST Albumin 3.1 (L) 3.4 - 07/09/2021 [facility] 5.0 g/dl 11:20 AM EST Sodium 138 136 - 07/09/2021 [facility] 145 11:20 AM mEq/L EST Potassium 4.1 3.5 - 07/09/2021 [facility] 5.1 11:20 AM mEq/L EST Chloride 105.0 98.0 - 07/09/2021 [facility] 107.0 11:20 AM mEq/L EST Carbon Dioxide 27.3 21.0 - 07/09/2021 [facility] 32.0 11:20 AM mMol/L EST Anion Gap 9.8 7.0 - 07/09/2021 [facility] 15.0 11:20 AM EST Comment: The above 16 analytes were performed by [facility] [address] [place] [address],[id number],[place] [address] Anatomical Location / Laterality Collection Method / Volume Leatha ection Time Received Time Specimen (Source) 07/09/2021 10:35 AM EST 07/09/20 10:45 AM EST Serum or Plasma Ace Hargrove MD LAB BLOOD ORDERABLES City/State/ZIP Code Phone Number Performing [place] [address] DENIA PATEL MD [facility] [address] [place] [address] * CBC and differential (07/09/2021 10:35 AM EST) Pathologist Signature Component Value Ref Test Method Analysis Performed A t Range Time WBC 9.91 4.80 - 07/09/2021 [facility] 10.00 10:51 AM x1000/ul EST RBC 4.90 4.70 - 07/09/2021 [facility] 6.10 10:51 AM x1Mil/ul EST Hemoglobin 14.2 14.0 - 07/09/2021 [facility] 18.0 10:51 AM g/dl EST Hematocrit 45.4 42.0 - 07/09/2021 [facility] 52.0 % 10:51 AM EST MCV 92.7 80.0 - 07/09/2021 [facility] 94.0 fL 10:51 AM EST MCH 29.0 27.0 - 07/09/2021 [facility] 31.0 pg 10:51 AM EST MCHC 31.3 (L) 32.2 - 07/09/2021 [facility] 37.0 10:51 AM g/dl EST RDW 14.1 11.5 - 07/09/2021 [facility] 14.5 % 10:51 AM EST Platelet Count 312 130 - 07/09/2021 [facility] 400 10:51 AM x1000/ul EST MPV 10.1 9.4 - 07/09/2021 [facility] 12.4 fL 10:51 AM EST Neutrophils 52.8 40.0 - 07/09/2021 [facility] 74.0 % 10:51 AM EST Lymphocytes 31.9 19.0 - 07/09/2021 [facility] 48.0 % 10:51 AM EST Monocytes 8.0 3.4 - 07/09/2021 [facility] 9.0 % 10:51 AM EST Eosinophils 5.3 0.0 - 07/09/2021 [facility] 7.0 % 10:51 AM EST Basophils 1.1 0.0 - 07/09/2021 [facility] 2.0 % 10:51 AM EST Immature 0.9 (H) 0.0 - 07/09/2021 [facility] Granulocytes 0.5 % 10:51 AM EST Nucleated RBCs 0.00 0.00 - 07/09/2021 [facility] 0.20 % 10:51 AM EST Abs. Neutrophils 5.23 1.92 - 07/09/2021 [facility] 8.31 10:51 AM x1000/ul EST Abs. Lymphocyte 3.16 1.20 - 07/09/2021 [facility] 3.70 10:51 AM x1000/ul EST Abs. Monocytes 0.79 0.14 - 07/09/2021 [facility] 0.97 10:51 AM x1000/ul EST Abs. 0.53 0.00 - 07/09/2021 [facility] Eosinophils 0.76 10:51 AM x1000/ul EST Abs. 0.11 0.00 - 07/09/2021 [facility] Basophils 0.22 10:51 AM x1000/ul EST Abs. Immature Gran. 0.09 (H) 0.00 - 07/09/2021 [facility] 0.02 10:51 AM x1000/ul EST Abs. Nucleated RBCs 0.00 0.00 - 07/09/2021 [facility] 0.02 10:51 AM x1000/ul EST Comment: The above 24 analytes were performed by [facility] [address] [id number] [address] Anatomical Location / Laterality Collection Method / Volume Leatha ection Time Received Time Specimen (Source) 07/09/2021 10:35 AM EST 07/09/20 21 10:45 AM EST Whole Blood Ace Hargrove MD LAB BLOOD ORDERABLES City/State/ZIP Code Phone Number Per[place] [address] DENIA PATEL MD [facility] [address] [place] [address] * ECHO 2D MODE PANEL (WITH COLOR FLOW AND DOPPLER) (07/09/2021 10:21 AM EST) Pathologist Signature Component Value Ref Test Method Analysis Performed A t Range Time BSA 2.4 m2 [facility] Modality Anatomical Region Laterality Echocardiography Anatomical Location / Laterality Collection Method / Volume Leatha ection Time Received Time Specimen (Source) Narrative [facility] - 07/09/2021 11:27 AM EST Echocardiogram Report Patient Name: Orlando Bolanos Referring Physician:Ace Hargrove MD Reading Physician: Juan Estes MD : 1965 Primary Physician: Age: [age] year old Experience Design Director: Delilah Avitia RDCS, RT (R) Gender: Male Weight/Height: 120 kg (265 lb) 1.727 m (5' 8") Exam Date: Blood Pressure Location: Rhythym: Indications / History: Syncope; Dizziness ECHO DIMENSIONS: . Measurement 2D Range Measurement 2D Range LVOT No data recorded 1.8-2.2 LV(d) LVID (D): 4.4 cm 3.5-5.6 Ao Root 3 cm 2.0-3.7 LVID(s) LVID (S): 2.6 cm 2.1-4.0 LA Diameter LA DIAMETER: 3.1 cm 1.9-4.0 LA Volume No data recorded > 34 IVS IVS: (!) 1.2 cm 0.6-1.1 LVPW LVPW: (!) 1.3 cm 0.6-1.1 EF EF: (!) 55 % DOPPLER: Aortic Valve Mitral Valve Diastolic Functions / TDI Ao V max No data recorded MV max PG No data recorded E velocity E VELOCITY: 0.6 cm/s Max PG No data recorded Mean PG No data recorded A velocity A VELOCITY: 0.7 cm/s Mean PG No data recorded MVA P 1/2 No data recorded E/A velocity E/A VELOCITY RATIO: 0.8 Ratio E/A YOLANDA No data recorded Septal E' No data recorded Lateral E' No data recorded E/E' No data recorded Tricuspid Valve Pulmonary Valve TR Max PG No data recorded PAEDP No data recorded RVSP No data recorded Max PG No data recorded Max PG No data recorded Mean PG No data recorded Mean PG No data recorded 2D M-Mode, Doppler and Color Flow imagin g was performed. Technical Quality: Technically difficult FINDINGS: 1. The left atrium is normal in size. The left ventricle is normal in size. The right atrium is normal in size. The right ventricle is normal in size. The aortic root is normal in size. 2. The mitral valve is structurally norm al. The aortic valve is structurally normal. The tricuspid valve is structurally normal. The pulmonic valve is structurally normal. 3. Left ventricular wall motion normal. The left ventricular ejection fraction was estimated to be 50-55. 4. Color flow and spectral Doppler imagi ng across the mitral valve reveals no mitral regurgitation and no stenosis. Color flow and spectral Doppler imaging across the aortic valve reveals no aortic stenosis and no regurgitation. Color flow and spectral Doppler imaging across the pulmonic valve reveals no pulmonic insufficiency. Color flow and spectral Doppler imaging across the tricuspid valve reveals no tricuspid regurgitation. The right ventricular systolic pressure is normal. 5. There is no fluid in the pericardial space. Conclusions: Normal LV systolic function, LVEF 50-55 percent, no major valvular heart disease. Juan Estes MD Ace Hargrove MD CV ECHO PROCEDURES City/State/ZIP Code Phone Number Performing Address Organization [facility] * C-reactive protein (07/09/2021 5:21 AM EST) Pathologist Signature Component Value Ref Test Method Analysis Performed A t Range Time C-Reactive Protein 47.20 (H) 0.00 - 07/09/2021 [facility] (Non-Cardiac) 3.00 5:58 AM mg/L EST Comment: The above 1 analytes were performed by [facility] [address] [place] [id number],[place] [address] Anatomical Location / Laterality Collection Method / Volume Leatha ection Time Received Time Specimen (Source) 07/09/2021 5:21 AM EST 07/09/20 5:28 AM EST Serum or Plasma Ace Hargrove MD LAB BLOOD ORDERABLES City/State/ZIP Code Phone Number Performing [place] [address] DENIA PATEL MD [facility] [address] [place] [address] * Lactic acid (07/08/2021 5:30 PM EST) Pathologist Signature Component Value Ref Test Method Analysis Performed A t Range Time Lactic Acid 1.6 0.4 - 07/08/2021 [facility] 2.0 6:08 PM mMol/L EST Comment: The above 1 analytes were performed by [facility] [address] [place] [address], ,[place] [address] Anatomical Location / Laterality Collection Method / Volume Leatha ection Time Received Time Specimen (Source) 07/08/2021 5:30 PM EST 07/08/20 5:36 PM EST Plasma Ace Hargrove MD LAB BLOOD ORDERABLES City/State/ZIP Code Phone Number Performing [place] [address] DENIA PATEL MD [facility] [address] [place] [address] * POCT i-STAT Troponin unsolicited results (07/08/2021 4:19 PM EST) Pathologist Signature Component Value Ref Test Method Analysis Performed A t Range Time Troponin, iSTAT 0.00 0.00 - 07/08/2021 [facility] 0.10 4:45 PM ng/ml EST Comment: Reference Values: Negative: <0.07 ng/mL Increasing Risk of ACS: 0.08-0.10 ng/mL Positive: >0.10 ng/mL Conditions other than GA that cause increased troponin I values include but are not limited to chest trauma, cardiac and non-cardiac surgery, congestive heart failure, drug cardio-toxicity, inflammatory diseases such as myocarditis, pulmonary embolism, inflitrative diseases, and acute neurological disease. An AMI diagnositc cutoff within a range of 0.6-1.5 ng/mL is consistent with the WHO criteria for AMI. Results obtained using [employer]. The above 1 analytes were performed by [facility] [address] [place] [address], ,[place] [address] Anatomical Location / Laterality Collection Method / Volume Leatha ection Time Received Time Specimen (Source) 07/08/2021 4:19 PM EST 07/08/20 4:45 PM EST [facility] Whole Blood Galina Ernst MD LAB POINT OF CARE TEST DOCK ED DEVICE UNSOLICITED RESULTS City/State/ZIP Code Phone Number Performing [place] [address] DENIA PATEL MD [facility] [address] [place] [address] * ECG 12 lead (07/08/2021 4:15 PM EST) Anatomical Location / Laterality Collection Method / Volume Leatha ection Time Received Time Specimen (Source) 07/08/2021 4:15 PM EST Narrative [facility] - 07/08/2021 4:15 PM EST Ritesh's Test Date: 2021-07-08 Pat Name: ORLANDO BOLANOS Department: ED Room: 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: : 1965 Requested By: GALINA ERNST Order Number: [id number] Reading MD: GALINA ERNST Measurements Intervals [place] Rate: 100 P: 45 [place]: 151 QRS: 63 QRSD: 102 T: 31 QT: 347 QTc: 448 Interpretive Statements Sinus tachycardia Probable left atrial enlargement Low voltage, precordial leads RSR' in V1 or V2, right VCD or RVH Compared to ECG 07/08/2021 12:22:29 Low QRS voltage now present Right ventricular hypertrophy now present RSR' in V1 or V2 now present Electronically Signed On 07-09-2021 7:29:19 EST by GALINA ERNST Galina Ernst MD ECG ORDERABLES City/[facility]/[place] Code Phone Number Performing Address Organization [facility] * Sedimentation rate, automated (07/08/2021 3:20 PM EST) Pathologist Signature Component Value Ref Test Method Analysis Performed A t Range Time Sedimentation Rate 62 (H) 0 - 20 07/08/2021 [facility] mm/hr 6:15 PM EST Comment: The above 1 analytes were performed by [facility] [address] [place] [address], ,[place] [address] Anatomical Location / Laterality Collection Method / Volume Leatha ection Time Received Time Specimen (Source) 07/08/2021 3:20 PM EST 07/08/20 5:34 PM EST Whole Blood Galina Ernst MD LAB BLOOD ORDERABLES City/[facility]/ZIP Code Phone Number Performing [place] [address] DENIA PATEL MD [facility] [address] [place] [address] * Procalcitonin Test (07/08/2021 3:20 PM EST) Pathologist Signature Component Value Ref Test Method Analysis Performed A t Range Time Procalcitonin 0.21 0.00 - 07/08/2021 [facility] 0.50 6:31 PM ng/ml EST Comment: PCT Concentration: <= 0.5 ng/mL Interpretation: Systemic infection (sepsis) is not likely. Local bacterial infection is possible. Risk or options for further action: Low risk for progression to severe systemic infection (severe sepsis/septic shock). Caution: PCT levels below 0.5 ng/mL do not exclude an infection, because localized infections (without systemic signs) may be associated with such low levels. PCT Concentration: 0.5-2 ng/mL Interpretation: Systemic infection (sepsis) is possible, but other condictions are know to elevate PCT as well. Risk or options for further action: Moderate risk for progression to severe systemic infection (severe sepsis/septic shock). The patient should be closely monitored both clinically and by re-assessing PCT within 6-24 hours. PCT Concentration: >2 ng/mL Interpretation: Systemic infection (sepsis) is likely, unless other causes are known. Risk or options for further action: High risk for progression to severe systemic infection (severe sepsis/septic shock). PCT Concentration >= 10 ng/mL Interpretation: Important systemic inflammatory response, almost exclusively due to severe bacterial sepsis or septic shock. Risk or options for further action: High likelihood of sepsis or septic shock The above 1 analytes were performed by [facility] [address] [place] [address],[facility] [id number],[place] [address] Anatomical Location / Laterality Collection Method / Volume Leatha ection Time Received Time Specimen (Source) 07/08/2021 3:20 PM EST 07/08/20 5:34 PM EST Serum or Plasma Galina Ernst MD LAB BLOOD ORDERABLES City/State/ZIP Code Phone Number Performing [place] [address] DENIA PATEL MD [facility] [address] [place] [address] * Prothrombin time no therapy or unknown (07/08/2021 3:20 PM EST) Pathologist Signature Component Value Ref Test Method Analysis Performed A t Range Time PT, No Coag Tx/Coag 13.3 (H) 10.2 - 07/08/2021 [facility] Tx Unk 12.9 3:57 PM Seconds EST Comment: PT referenence range reflects values for patients not on anticoagulant therapy. Discrepant results may occur due to anticoagulant effects such as coumadin, direct thrombin inhibitors; argatroban (Acova), bivalirudin (Angiomax) or dabigatran (Pradaxa) or direct factor Xa inhibitors; rivaroxaban (Xarelto), apixaban (Eliquis) and edoxaban (Savaysa). INR (No Coag Tx/Coag 1.2 (H) 0.9 - 07/08/2021 [facility] Tx Unk) 1.1 3:57 PM EST Comment: Suggested therapeutic INR ranges for oral anticoagulant therapy: Indication: INR Prevention and treatment of DVT and PE 2.0 - 3.0 Prevention of systemic embolism with atrial fib., acute GA and 2.0 - 3.0 tissue prosthetic heart valves. Prevention of systemic embolism in patients with mechanical heart 2.5 - 3.5 valves. NOTE: The INR is only valid for patients on stable oral anticoagulant therapy. __ The above 2 analytes were performed by [facility] [address] [place] [address], ,[place] [address] Anatomical Location / Laterality Collection Method / Volume Leatha ection Time Received Time Specimen (Source) 07/08/2021 3:20 PM EST 07/08/20 21 3:32 PM EST Plasma Galina Ernst MD LAB BLOOD ORDERABLES City/State/ZIP Code Phone Number Performing [place] [address] DENIA PATEL MD [facility] [address] [place] [address] * Magnesium (07/08/2021 3:20 PM EST) Pathologist Signature Component Value Ref Test Method Analysis Performed A t Range Time Magnesium 2.2 1.6 - 07/08/2021 [facility] 2.6 4:10 PM mg/dl EST Comment: The above 1 analytes were performed by [facility] [address] [place] [address], ,[place] [address] Anatomical Location / Laterality Collection Method / Volume Leatha ection Time Received Time Specimen (Source) 07/08/2021 3:20 PM EST 07/08/20 3:33 PM EST Serum or Plasma Galina Ernst MD LAB BLOOD ORDERABLES [facility]/[place] Code Phone Number Performing [place] [address] DENIA PATEL MD [facility] [address] [place] [address] * N-Terminal Probnp (07/08/2021 3:20 PM EST) Pathologist Signature Component Value Ref Test Method Analysis Performed A t Range Time NTproBNP 44 0 - 125 07/08/2021 [facility] pg/ml 4:12 PM EST Comment: Acute CHF unlikely if NTproBNP: <125 pg/mL for age <75 years <450 pg/mL for age > or = 75 years CHF likely if NTproBNP: >450 pg/mL for age <50 years >900 pg/mL for age 50-75 years >1800 pg/mL for age >75 years CHF very likely if NTproBNP: >285[address] (regardless of age) The PRIDE study recommends the above cut-off values. It also recognizes a change in a patient's "dry" value of >25% as being an acute episode of HF. Therefore, a return to their "dry" level at a 25% decrease is an indication of a successful intervention. The above 1 analytes were performed by [facility] [address] [place] [address], ,[place] [address] Anatomical Location / Laterality Collection Method / Volume Leatha ection Time Received Time Specimen (Source) 07/08/2021 3:20 PM EST 07/08/20 3:33 PM EST Serum or Plasma Galina Ernst MD LAB BLOOD ORDERABLES [facility]/ZIP Code Phone Number Performing [place] [address] DENIA PATEL MD [facility] [address] [place] [address] * Comprehensive metabolic panel (07/08/2021 3:20 PM EST) Pathologist Signature Component Value Ref Test Method Analysis Performed A t Range Time AST 18 15 - 37 07/08/2021 [facility] IU/L 4:10 PM EST Comment: Sulfasalazine and sulfapyridine have the potential to falsely depress Aspartate Aminotransferase results. Baseline values before medication administration are recommended. ALT 27 16 - 61 07/08/2021 [facility] IU/L 4:10 PM EST Comment: Sulfasalazine and sulfapyridine have the potential to falsely depress Alanine Aminotransferase results. Baseline values before medication administration are recommended. Alkaline Phosphatase 75 50 - 136 07/08/2021 [facility] mIU/ml 4:10 PM EST Total Bilirubin 1.10 (H) 0.20 - 07/08/2021 [facility] 1.00 4:10 PM mg/dl EST Blood Urea Nitrogen 26 (H) 7 - 18 07/08/2021 [facility] mg/dl 4:10 PM EST Creatinine 2.21 (H) 0.67 - 07/08/2021 [facility] 1.17 4:10 PM mg/dl EST Comment: N-Acetylcysteine (NAC) and Metamizole have the potential to falsely depress Creatinine results. Baseline values before medication adminstration are recommended. Patients undergoing treatment with phenindione will have falsely depressed results. Patients on phenindione therapy should be tested with an alternative CREA method. Toxic levels of acetaminophen may lead to falsely depressed results for patient samples. Glomerular 31.00 mL/min/1 07/08/2021 [facility] Filtration Rate .73m2 4:10 PM EST Comment: GFR Reference Ranges: Normal Function or Mild Renal Disease,if clinically at risk: >or= 60 Moderately decreased: 30 - 59 Severely decreased: 15 - 29 Renal Failure: <15 Please note that the MDRD equation requires an additional adjustment for -Americans (multiply the GFR result by 1.210). Glomarular Filtration Rate (GFR) is estimated based on the MDRD equation, which assumes a steady state for creatinine ([place] Int Med 139/2 137-149, 2003), as recommended by the National Kidney Disease Education Program in conjunction with the National Institutes of Health and the National Kidney Foundation. The [place] method used in calculating this result is traceable to IDMS standards. Glucose 127 (H) 70 - 110 07/08/2021 [facility] mg/dl 4:10 PM EST Comment: Sulfasalazine has the potential to falsely depress Glucose results. Sulfapyridine has the potential to falsely elevate Glucose results. Baseline values before medication administration are recommended. Calcium 9.2 8.5 - 07/08/2021 [facility] 10.1 4:10 PM mg/dl EST Total Protein 7.9 6.4 - 07/08/2021 [facility] 8.2 g/dl 4:10 PM EST Albumin 3.3 (L) 3.4 - 07/08/2021 [facility] 5.0 g/dl 4:10 PM EST Sodium 136 136 - 07/08/2021 [facility] 145 4:10 PM mEq/L EST Potassium 4.0 3.5 - 07/08/2021 [facility] 5.1 4:10 PM mEq/L EST Chloride 102.0 98.0 - 07/08/2021 [facility] 107.0 4:10 PM mEq/L EST Carbon Dioxide 26.5 21.0 - 07/08/2021 [facility] 32.0 4:10 PM mMol/L EST Anion Gap 11.5 7.0 - 07/08/2021 [facility] 15.0 4:10 PM EST Comment: The above 16 analytes were performed by [facility] [address] [place] [address], ,[place] [address] Anatomical Location / Laterality Collection Method / Volume Leatha ection Time Received Time Specimen (Source) 07/08/2021 3:20 PM EST 07/08/20 3:33 PM EST Serum or Plasma Galina Ernst MD LAB BLOOD ORDERABLES City/State/ZIP Code Phone Number Performing [place] [address] DENIA PATEL MD [facility] [address] [place] [address] * CBC and differential (07/08/2021 3:20 PM EST) Pathologist Signature Component Value Ref Test Method Analysis Performed A t Range Time WBC 19.59 (H) 4.80 - 07/08/2021 [facility] 10.00 3:54 PM x1000/ul EST RBC 5.09 4.70 - 07/08/2021 [facility] 6.10 3:54 PM x1Mil/ul EST Hemoglobin 14.9 14.0 - 07/08/2021 [facility] 18.0 3:54 PM g/dl EST Hematocrit 47.1 42.0 - 07/08/2021 [facility] 52.0 % 3:54 PM EST MCV 92.5 80.0 - 07/08/2021 [facility] 94.0 fL 3:54 PM EST MCH 29.3 27.0 - 07/08/2021 [facility] 31.0 pg 3:54 PM EST MCHC 31.6 (L) 32.2 - 07/08/2021 [facility] 37.0 3:54 PM g/dl EST RDW 13.9 11.5 - 07/08/2021 [facility] 14.5 % 3:54 PM EST Platelet Count 361 130 - 07/08/2021 [facility] 400 3:54 PM x1000/ul EST MPV 10.1 9.4 - 07/08/2021 [facility] 12.4 fL 3:54 PM EST Neutrophils 76.6 (H) 40.0 - 07/08/2021 [facility] 74.0 % 3:54 PM EST Lymphocytes 13.0 (L) 19.0 - 07/08/2021 [facility] 48.0 % 3:54 PM EST Monocytes 8.0 3.4 - 07/08/2021 [facility] 9.0 % 3:54 PM EST Eosinophils 0.7 0.0 - 07/08/2021 [facility] 7.0 % 3:54 PM EST Basophils 0.6 0.0 - 07/08/2021 [facility] 2.0 % 3:54 PM EST Immature 1.1 (H) 0.0 - 07/08/2021 [facility] Granulocytes 0.5 % 3:54 PM EST Nucleated RBCs 0.00 0.00 - 07/08/2021 [facility] 0.20 % 3:54 PM EST Abs. Neutrophils 15.01 (H) 1.92 - 07/08/2021 [facility] 8.31 3:54 PM x1000/ul EST Abs. Lymphocyte 2.55 1.20 - 07/08/2021 [facility] 3.70 3:54 PM x1000/ul EST Abs. Monocytes 1.57 (H) 0.14 - 07/08/2021 [facility] 0.97 3:54 PM x1000/ul EST Abs. 0.14 0.00 - 07/08/2021 [facility] Eosinophils 0.76 3:54 PM x1000/ul EST Abs. 0.11 0.00 - 07/08/2021 [facility] Basophils 0.22 3:54 PM x1000/ul EST Abs. Immature Gran. 0.21 (H) 0.00 - 07/08/2021 [facility] 0.02 3:54 PM x1000/ul EST Abs. Nucleated RBCs 0.00 0.00 - 07/08/2021 [facility] 0.02 3:54 PM x1000/ul EST Comment: The above 24 analytes were performed by [facility] [address] [place] [id number],[place] [address] Anatomical Location / Laterality Collection Method / Volume Leatha ection Time Received Time Specimen (Source) 07/08/2021 3:20 PM EST 07/08/20 21 3:33 PM EST Whole Blood Galina Ernst MD LAB BLOOD ORDERABLES City/State/ZIP Code Phone Number [place] [address] DENIA PATEL MD [facility] [address] [place] [address] * CT head wo IV contrast (07/08/2021 1:30 PM EST) Modality Anatomical Region Laterality Computed Tomography Head Anatomical Location / Laterality Collection Method / Volume Leatha ection Time Received Time Specimen (Source) 07/08/2021 1:33 PM EST Impressions [facility] - 07/08/2021 1:35 PM EST No evidence of acute intracranial abnormality. Mild left maxillary sinus mucosal disease. IF THE PATIENT HAS SUSTAINED ACUTE STROKE OR IF THERE ARE UNEXPLAINED NEURO SIGNS OR SYMPTOMS FURTHER ASSESSMENT MAY BE WARRANTED. A FOLLOWUP CT SCAN IN 24-48 HOURS OR FOLLOWUP MRI WITH DIFFUSI ON TECHNIQUE COULD BE CONSIDERED. This report was generated, all or in part, using voice recognition software. ?A reasonable effort was made to review entries and ensure accuracy. If an error is suspected of clinical significance please notify the radiology Department file room. Electronically Signed by Patricia Jin MD 07/08/2021 1:35 PM Narrative [facility] - 07/08/2021 1:35 PM EST Patient: ORLANDO BOLANOS : 1965 PACS System: [facility] Procedure: CT HEAD WO CONTRAST Provider: GALINA ERNST EXAM: CT HEAD WO CONTRAST CLINICAL HISTORY: Episode of unresponsiveness at work. Vaginal bleeding. CPR was performed for 2 minutes with return of spontaneous breathing. Patient gives history of lightheadedness, diaphoresis and leg down to the ground. COMPARISON STUDY: None TECHNIQUE: Multiple axial scans were performed through the head without intravenous administration of contrast medium. Sagittal and coronal reformats. CT dose reduction protocol was used with automatic exposure control and iterative reconstruction. FINDINGS: CALVARIUM: Unremarkable. No fracture demonstrated. CEREBRAL HEMISPHERES: No evidence of intracranial mass or hemorrhage. No mass effect or shift of the midline. No abnormal attenuation is identified. No evidence of dense MCA sign. No evidence of diffuse cerebral edema EXTRA-AXIAL SPACE: No evidence of hemorrhage or acute abnormality. VENTRICULAR SYSTEM: No hydrocephalus. Symmetric ventricles. POSTERIOR FOSSA: No evidence of mass, hemorrhage or infarction. SKULL-BASE: No evidence of osteolytic or osteoblastic lesion. ORBITS: Unremarkable. PARANASAL SINUSES: Left maxillary sinus mucosal thickening. Procedure Note Patricia Jin MD - 07/08/2021 Patient: ORLANDO BOLANOS : 1965 PACS System: [facility] Procedure: CT HEAD WO CONTRAST Provider: GALINA ERNST EXAM: CT HEAD WO CONTRAST CLINICAL HISTORY: Episode of unresponsiveness at work. Vaginal bleeding. CPR was performed for 2 minutes with return of spontaneous breathing. Patient gives history of lightheadedness, diaphoresis and leg down to the ground. COMPARISON STUDY: None TECHNIQUE: Multiple axial scans were performed through the head without intravenous administration of contrast medium. Sagittal and coronal reformats. CT dose reduction protocol was used with automatic exposure control and iterative reconstruction. FINDINGS: CALVARIUM: Unremarkable. No fracture demonstrated. CEREBRAL HEMISPHERES: No evidence of intracranial mass or hemorrhage. No mass effect or shift of the midline. No abnormal attenuation is identified. No evidence of dense MCA sign. No evidence of diffuse cerebral edema EXTRA-AXIAL SPACE: No evidence of hemorrhage or acute abnormality. VENTRICULAR SYSTEM: No hydrocephalus. Symmetric ventricles. POSTERIOR FOSSA: No evidence of mass, hemorrhage or infarction. SKULL-BASE: No evidence of osteolytic or osteoblastic lesion. ORBITS: Unremarkable. PARANASAL SINUSES: Left maxillary sinus mucosal thickening. IMPRESSION: No evidence of acute intracranial abnormality. Mild left maxillary sinus mucosal disease. IF THE PATIENT HAS SUSTAINED ACUTE STROKE OR IF THERE ARE UNEXPLAINED NEURO SIGNS OR SYMPTOMS FURTHER ASSESSMENT MAY BE WARRANTED. A FOLLOWUP CT SCAN IN 24-48 HOURS OR FOLLOWUP MRI WITH DIFFUSI ON TECHNIQUE COULD BE CONSIDERED. This report was generated, all or in part, using voice recognition software. ?A reasonable effort was made to review entries and ensure accuracy. If an error is suspected of clinical significance please notify the radiology Department file room. Electronically Signed by Patricia Jin MD 07/08/2021 1:35 PM Galina Ernst MD IMG CT PROCEDURES City/State/ZIP Code Phone Number Performing Address Organization [facility] * POCT SARS-CoV-2, PCR unsolicited results (07/08/2021 1:20 PM EST) Pathologist Signature Component Value Ref Test Method Analysis Performed A t Range Time POC SARS-CoV-2 NEGATIVE NEGATIVE 07/08/2021 [facility] 1:32 PM EST Comment: Performed on the Flared3D ID NOW analyzer by rapid molecular methodology. First test? No 07/08/2021 [facility] 1:33 PM EST Employed in No 07/08/2021 [facility] healthcare? 1:33 PM EST Symptomatic? No 07/08/2021 [facility] 1:33 PM EST Hospitalized? No 07/08/2021 [facility] 1:33 PM EST In congregate care No 07/08/2021 [facility] setting? 1:33 PM EST ? No 07/08/2021 [facility] 1:33 PM EST In ICU? No 07/08/2021 [facility] 1:33 PM EST Comment: The above 8 analytes were performed by [facility] [address] [place] [address], ,[place] [address] Anatomical Location / Laterality Collection Method / Volume Leatha ection Time Received Time Specimen (Source) 07/08/2021 1:20 PM EST 07/08/20 21 1:31 PM EST Nasal Swab Galina Ernst MD LAB POINT OF CARE TEST DOCK ED DEVICE UNSOLICITED RESULTS City/State/ZIP Code Phone Number Performing [place] [address] DENIA PATEL MD [facility] [address] [place] [address] * X-ray chest 1 view, Portable (07/08/2021 12:51 PM EST) Modality Anatomical Region Laterality Computed Radiography Chest, Lung Anatomical Location / Laterality Collection Method / Volume Leatha ection Time Received Time Specimen (Source) 07/08/2021 12:56 PM EST Impressions [facility] - 07/08/2021 12:56 PM EST No acute disease. Electronically Signed by [place] MD 07/08/2021 12:56 PM Narrative [facility] - 07/08/2021 12:56 PM EST Patient: ORLANDO BOLANOS : 1965 PACS System: [facility] Procedure: XR CHEST 1 VIEW Provider: GALINA ERNST CLINICAL HISTORY: Chest pain. Dizziness. Syncope. Hypertension. TECHNIQUE: An AP portable view of the chest was obtained. COMPARISON: No relevant prior studies are available for comparison. FINDINGS: Lines/tubes: None. Lungs: The lungs are clear. Heart and mediastinum: The heart and mediastinal contours are unremarkable. Pleura: No pleural effusion or pneumothorax seen. Bones: The visualized bones are unremarkable. Abdomen: Visualized portions of the upper abdomen are unremarkable. Procedure Note [place] MD - 07/08/2021 Patient: ORLANDO BOLANOS : 1965 PACS System: [facility] Procedure: XR CHEST 1 VIEW Provider: GALINA ERNST CLINICAL HISTORY: Chest pain. Dizziness. Syncope. Hypertension. TECHNIQUE: An AP portable view of the chest was obtained. COMPARISON: No relevant prior studies are available for comparison. FINDINGS: Lines/tubes: None. Lungs: The lungs are clear. Heart and mediastinum: The heart and mediastinal contours are unremarkable. Pleura: No pleural effusion or pneumothorax seen. Bones: The visualized bones are unremarkable. Abdomen: Visualized portions of the upper abdomen are unremarkable. IMPRESSION: No acute disease. Electronically Signed by [place] MD 07/08/2021 12:56 PM Galina Ernst MD IMG XR PROCEDURES City/State/ZIP Code Phone Number Performing Address Organization [facility] * POCT i-STAT Troponin unsolicited results (07/08/2021 12:40 PM EST) Pathologist Signature Component Value Ref Test Method Analysis Performed A t Range Time Troponin, iSTAT 0.00 0.00 - 07/08/2021 [facility] 0.10 1:06 PM ng/ml EST Comment: Reference Values: Negative: <0.07 ng/mL Increasing Risk of ACS: 0.08-0.10 ng/mL Positive: >0.10 ng/mL Conditions other than GA that cause increased troponin I values include but are not limited to chest trauma, cardiac and non-cardiac surgery, congestive heart failure, drug cardio-toxicity, inflammatory diseases such as myocarditis, pulmonary embolism, inflitrative diseases, and acute neurological disease. An AMI diagnositc cutoff within a range of 0.6-1.5 ng/mL is consistent with the WHO criteria for AMI. Results obtained using Flared3D iSTAT Technology. The above 1 analytes were performed by [facility] [address] [place] [address],[facility]#: [id number],[place] [address] Anatomical Location / Laterality Collection Method / Volume Leatha ection Time Received Time Specimen (Source) 07/08/2021 12:40 PM EST 07/08/20 1:06 PM EST Ujlht-yx-Hgwx Whole Blood Galina Ernst MD LAB POINT OF CARE TEST DOCK ED DEVICE UNSOLICITED RESULTS City/State/ZIP Code Phone Number Performing Address Organization [place] [id number] DENIA PATEL MD [facility] [address] [place] [address] * ECG 12 lead (Now) (07/08/2021 12:22 PM EST) Anatomical Location / Laterality Collection Method / Volume Leatha ection Time Received Time Specimen (Source) 07/08/2021 12:22 PM EST Narrative [facility] - 07/08/2021 12:22 PM EST Ritesh's Test Date: 2021-07-08 Pat Name: ORLANDO BOLANOS Department: ED Room: ACT 02 Gender: M 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: : 1965 Requested By: GALINA ERNST Order Number: [id number] Tom MD: GALINA ERNST Measurements Intervals [place] Rate: 100 P: 50 [place]: 148 QRS: 52 QRSD: 127 T: 37 QT: 388 QTc: 501 Interpretive Statements Sinus tachycardia Probable left atrial enlargement IVCD, consider atypical RBBB No previous ECG available for comparison Electronically Signed On 07-08-2021 14:14:46 EST by GALINA ERNST Galina Ernst MD ECG ORDERABLES City/State/ZIP Code Phone Number Performing Address Organization [facility] [employer] [facility] documented in this encounter Visit Diagnoses Diagnosis Syncope, unspecified syncope type Dehydration Leukocytosis, unspecified type Hypertension Unspecified essential hypertension Sleep apnea Unspecified sleep apnea JOSE (acute kidney injury) ([facility]) documented in this encounter Administered Medications Action Date Dose Rate Site Medication Order MAR Action 07/10/2021 11:36 AM EST 40 mg Left Low er Abdomen enoxaparin (LOVENOX) syringe 40 mg Given 40 mg, subcutaneous, Every 24 hours scheduled, First dose on Mon07/09/21 a t 1800 40 mg Left Lower Abdomen Given 07/09/2021 6:13 PM EST 07/08/2021 7:45 PM EST 100 mL/hr 100 mL/hr lactated Ringer's infusion New Bag 100 mL/hr, intravenous, Continuous, Starting on Mayi 07/08/21 at 1945 07/10/2021 11:36 AM EST 50 mg metoprolol succinate (TOPROL-XL) 24 Hour Given tablet 50 mg 50 mg, oral, Daily, First dose on Mon07/09/21 at 1125, Do not crush or chew. 50 mg Given 07/09/2021 12:09 PM EST Action Date Dose Rate Site Medication Order MAR Action 07/08/2021 3:20 PM EST 125 mL/hr 125 mL/hr sodium chloride 0.9% infusion New Bag 125 mL/hr, intravenous, Continuous, Starting on Mayi 07/08/21 at 1520 documented in this encounter Active and Recently Administered Medications Times are shown in EST. 07/09/2021 07/10/2021 Medication Order 07/08/2021 1813 (Given - Provider: Antione Montesinos) 1136 (Given - Provider: Antione Hillman) enoxaparin (LOVENOX) syringe 40 mg 40 mg, subcutaneous, Every 24 hours scheduled, First dose on Mon07/09/21 a t 1800 1209 (Given - Provider: Marion Madsen RN ) 1136 (Given - Provider: Antione Hillman) metoprolol succinate (TOPROL-XL) 24 Charisse r tablet 50 mg 50 mg, oral, Daily, First dose on Mon07/09/21 at 1125, Do not crush or chew. 07/09/2021 07/10/2021 Medication Order 07/08/2021 lactated Ringer's infusion 1945 (New Bag - 100 mL/hr, intravenous, at 100 mL/hr, Provider: Conchita randolph Continuous, Starting on Mayi 07/08/21 at ROSA Zhang) 1945 sodium chloride 0.9% infusion (CANCELED) 1520 (New B ag - 125 mL/hr, intravenous, at 125 mL/hr, Provider: Gage beard Continuous, Starting on Mayi 07/08/21 at ROSA Foote)2 002 1520 (Stopped/Discontinue d - Provider: Shiela Zhang RN) documented in this encounter Additional Health Concerns Onset Date Resolved Time Infection Last Indicated 07/08/2021 07/08/2021 1:33 PM EST COVID-19 Rule Out 07/08/2021 documented as of this encounter Insurance Type Payer Benefit Subscriber ID Effective Phone Address Plan / Dates Group [facility] [id number] [address] [employer] -Present [employer]EV [facility] [address] [place] [address] [id number] documented as of this encounter Advance Directives Date Inactivated Comments Code Status Date Activated Full Code 07/08/2021 4:54 PM Care Teams Start Date End Date Marking Machine Tender Relationship Specialty 07/10/21 Khadar Christian MD PCP - General General 53-[address] [address] documented as of this encounter
--- OUTSIDE RECORDS SUMMARY | 2021-07-30 06:06 | CCD | Continuity of Care Document ---
Author Author Sterling SHANNON MD Organization Unknown Address [address] [place] [address] Phone [phone] Care Team Providers Care Donor Technician Name Role Phone Doctor N/A AUTM Unavailable Khadar Resendez MD AUTM [phone] Problems Active Problems Provider Date Essential hypertension Onset: 09/04/2017 Syncope Onset: Dehydration Onset: Leukocytosis Onset: JOSE - acute kidney injury Onset: 000 Obesity Onset: Sleep apnea Onset: Social History Type Date Description Comments Sex Unknown Tobacco Use Start: Unknown Patient has never smoked Recreational Drug Use Never Used Drugs Smoking Status Reviewed: 07/26/21 Patient has never smoked Allergies and adverse reactions Description No Known Drug Allergies Medications Active Medications SIG Qnty Indications Ordering Provide r Date Metoprolol Succinate ER 100mg Tablets ER 24HR 1 by mouth every day 90tabs Tab Shannon MD 07/26/2021 Immunizations Description No Information Available Vital Signs Date Vital Result Comment 07/26/2021 1:30pm BP Systolic 142 mmHg BP Diastolic 100 mmHg Heart Rate 97 /min Height 68 inches 5'8" Weight 296.00 lb BMI (Body Mass Index) 45.0 kg/m2 O2 % BldC Oximetry 97 % Results Description No Information Available Procedures Date Code Description Status 07/09/2021 92528 Hospital Initial Care Level 3 Co mpleted 07/09/2021 54893 Echocardiography, Pr ofl,Tranthoracic, Realtime Image Documentatio Completed Medical Devices Description No Information Available Encounters Description No Information Available Assessments Date Code Description Provider 07/26/2021 I10 Essential (primary) hypertension Tab Shannon MD 07/09/2021 R55 Syncope and collapse Juan rivas MD 07/09/2021 I50.30 Unspecified diastolic (congestiv e) heart failure Juan Peña MD 07/09/2021 R42 Dizziness and giddiness Juan flores MD 07/09/2021 I10 Essential (primary) hypertension Juan Peña MD 07/09/2021 E86.0 Dehydration Juan metcalf MD 07/09/2021 N17.9 Acute kidney failure, unspecifie d Juan Peña MD Plan of Treatment Future Appointment(s):* 01/27/2022 8:00 am - Tab Shannon MD at [place] [facility] * 07/27/2021 9:00 am - Govind Amaya MD at [place] Nuclear Studies 07/26/2021 - Tab Shannon MD* I10 Essential (primary) hypertension Functional Status Description No Information Available Mental Status Description No Information Available Referrals Refer to Dr Reason for Referral Status Appt Date Juan Peña MD Scheduled [address] [place] [id number] [phone]
--- OUTSIDE RECORDS SUMMARY | 2021-07-30 06:06 | CCD | Continuity of Care Document ---
Author Author Sterling DELGADO MD Organization Unknown Address [address] [place] [address] Phone [phone] Care Team Providers Care Flanging Roll Operator Name Role Phone Khadar Resendez MD @ [facility] Int AUTM Problems Active Problems Provider Date Essential hypertension [...] lb BMI (Body Mass Index) 43.0 kg/m2 [place] Body Weight 160 lb Weight 131.998 kg BSA (Body Surface Area) 2.42 m2 11/06/2017 10:19am BP Systolic 138 mmHg la BP Diastolic 86 mmHg la Heart Rate 96 /min la Height 69 inches 5'9" Weight 273.00 lb BMI (Body Mass Index) 40.3 kg/m2 [place] Body Weight 160 lb Weight 123.833 kg BSA (Body Surface Area) 2.36 m2 Results Description No Information Available Procedures Date Code Description Status 07/07/2021 17666 Office/Outpatient New Moderate M DM 45-59 Minutes Completed Medical Devices Description No Information Available Encounters Type Date Location Provider Dx Diagnosis Office Visit 07/07/2021 1:45p [facility] Javon lorenzo JR, MD K43.9 Ventral hernia without obstruction or ga ngrene Assessments Date Code Description Provider 07/07/2021 K43.9 Ventral hernia without obstructi on or gangrene Javon Delgado JR, MD Plan of Treatment Future Appointment(s):* 08/11/2021 1:15 pm - YESSENIA Lewis at [facility] * 07/30/2021 5:55 pm - Javon Delgado JR, MD at [facility] 07/07/2021 - Javon [...] Delgado JR, MD ABDOMINAL WALL HERNIA Scheduled [address] [place] [phone] [phone]
--- OUTSIDE RECORDS SUMMARY | 2021-07-30 06:06 | CCD | Continuity of Care Document ---
Author Author Sterling Resendez MD Organization Unknown Address [address] [address] Phone [phone] Care Team Providers Care Nature Photographer Name Role Phone Khadar Resendez JR, MD [...] BMI (Body Mass Index) 45.5 kg/m2 Results Description No Information Available Procedures Date Code Description Status 03/03/2020 19675084 Colonoscopy Completed 02/12/2020 54327852 Colonoscopy Completed Medical Devices Description No Information Available Encounters Description No Information Available Assessments Description No Information Available Plan of Treatment No Information Available Functional Status Description No Information Available Mental Status Description No Information Available Referrals Description No Information Available
--- OUTSIDE RECORDS SUMMARY | 2021-07-30 06:06 | CCD | Continuity of Care Document ---
Author Author Sterling Resendez MD Organization Unknown Address [address] [address] Phone [phone] Care Team Providers Care Chemistry Research Assistant Name Role Phone Khadar Resendez JR, MD [...] Ordering Provide r Date Metoprolol Succinate ER 50mg Tablets ER 24HR Take One Tablet By Mouth Every Day Unknow n Immunizations Description No Information Available Vital Signs Date Vital Result Comment 07/22/2021 9:30am BP Systolic 150 mmHg BP Diastolic 92 mmHg Heart Rate 84 /min Height 68 inches 5'8" Weight 299.00 lb BMI (Body Mass Index) 45.5 kg/m2 05/28/2021 10:28am BP Systolic 112 mmHg BP Diastolic 78 mmHg Heart Rate 88 /min Height 68 inches 5'8" Weight 290.00 lb O2 % BldC Oximetry 95 % BMI (Body Mass Index) 44.1 kg/m2 Results Test Acquired Date Facility Test Result H/L Range Note Complete Blood Count 05/28/2021 [facility] Record Clerk Salesperson: [place] [address] [phone] WBC 11.0 x10*3/UL High 4.1 - 10.9 [...] 2.0 - 7.8 Comprehensive Chem Profile 05/28/2021 [facility] Record Clerk Salesperson: [place] [address] [phone] Glucose 93 mg/dL 74 - 99 1 [...] 60 mL/min >60 2 Lipid Profile 05/28/2021 [facility] Record Clerk Salesperson: [place] [address] [phone] Cholesterol 183 mg/dL 131 - 200 Triglycerides [...] LITTLE GFR LEFT ESRD GFR <15 ON MATERIAL REQUIREMENTS WORKER Procedures Date Code Description Status 05/28/2021 61162 Office/Outpatient Established Mo d MDM 30-39 Min Completed 05/28/2021 91680 EKG/Interpretation & Report Comp leted 03/03/2020 05136144 Colonoscopy Completed 02/12/2020 50709012 Colonoscopy Completed Medical Devices Description No Information Available Encounters Type Date Location Provider Dx Diagnosis Office Visit 05/28/2021 10:40a [facility] Khadar Resendez MD I10 Essential [...] 8:40 am - Khadar Resendez MD at [facility] Functional Status Description No Information Available Mental Status Description No Information Available Referrals Refer to Dr Reason for Referral Status Appt Date Javon Delgado JR, MD CONSULT FOR PAINFUL ABDOMINAL WALL HER [place] Patient Notified 07/05/2021 [facility] General Surgery [address] [facility] [address] [facility] [phone]
--- OUTSIDE RECORDS SUMMARY | 2021-07-30 06:06 | CCD | Continuity of Care Document ---
Author Author Sterling DELGADO MD Organization Unknown Address [address] [place] [address] Phone [phone] Care Team Providers Care Iron Bender Name Role Phone Khadar Resendez MD @ [facility] Int AUTM [phone] Problems Active Problems Provider Date Essential hypertension [...] lb BMI (Body Mass Index) 43.0 kg/m2 [place] Body Weight 160 lb Weight 131.998 kg BSA (Body Surface Area) 2.42 m2 11/06/2017 10:19am BP Systolic 138 mmHg la BP Diastolic 86 mmHg la Heart Rate 96 /min la Height 69 inches 5'9" Weight 273.00 lb BMI (Body Mass Index) 40.3 kg/m2 [place] Body Weight 160 lb Weight 123.833 kg [...] 08/11/2021 1:15 pm - YESSENIA Lewis at [facility] * 07/30/2021 5:55 pm - Javon Delgado JR, MD at [facility] 07/07/2021 - Javon Delgado [...] Delgado JR, MD ABDOMINAL WALL HERNIA Scheduled [address] [place] [address] [phone]
--- OUTSIDE RECORDS SUMMARY | 2021-07-30 06:06 | CCD | Continuity of Care Document ---
Author Author Sterling BUSTILLOS MD Organization Unknown Address [address] [place] [address] Phone [phone] Care Team Providers Care Manager Process Improvement Name Role Phone Doctor N/A AUTM Unavailable Khadar Resendez MD AUTM [phone] Problems Description No Information Available Social History Type Date Description Comments Sex Unknown Allergies and adverse reactions Description No Information Available Medications Description No Information Available Immunizations Description No Information Available Vital Signs Description No Information Available Results Description No Information Available Procedures Date Code Description Status 07/09/2021 23617 Hospital Initial Care Level 3 Co mpleted 07/09/2021 25004 Echocardiography, Pr ofl,Tranthoracic, Realtime Image Documentatio Completed Medical Devices Description No Information Available Encounters Description No Information Available Assessments Date Code Description Provider 07/09/2021 R55 Syncope and collapse Juan rivas MD 07/09/2021 I50.30 Unspecified diastolic (congestiv e) heart failure Juan Bustillos MD 07/09/2021 R42 Dizziness and giddiness Juan flores MD 07/09/2021 I10 Essential (primary) hypertension Juan Bustillos MD 07/09/2021 E86.0 Dehydration Juan metcalf MD 07/09/2021 N17.9 Acute kidney failure, unspecifie d Juan Bustillos MD Plan of Treatment Future Appointment(s):* 07/26/2021 8:00 am - Nuclear Studies at [place] [facility] Functional Status Description No Information Available Mental Status Description No Information Available Referrals Description No Information Available
--- OUTSIDE RECORDS SUMMARY | 2021-07-30 06:07 | CCD ---
Author Author [facility] Organization [facility] Address Unknown Phone Unavailable Care Team Providers Care Roll Operator Name Role Phone Elma Peña Unavailable [phone] O'Elma goldberg Garland Unavailable [phone] O'ashlyn, P Garland Unavailable [phone] O'ashlyn, P Garland Unavailable [phone] ACE GILMAN MD Unavailable Unavailable GALINA BHAGAT MD Unavailable Unavailable GALINA BHAGAT MD Unavailable Unavailable GALINA BHAGAT MD Unavailable Unavailable GALINA BHAGAT MD Unavailable Unavailable GALINA BHAGAT MD Unavailable Unavailable GALINA BHAGAT MD Unavailable Unavailable GALINA BHAGAT MD Unavailable Unavailable GALINA BHAGAT MD Unavailable Unavailable GALINA BHAGAT MD Unavailable Unavailable GALINA BHAGAT MD Unavailable Unavailable GALINA BHAGAT MD Unavailable Unavailable GALINA BHAGAT MD Unavailable Unavailable GALINA BHAGAT MD Unavailable Unavailable GALINA BHAGAT MD Unavailable Unavailable GALINA BHAGAT MD Unavailable Unavailable GALINA BHAGAT MD Unavailable Unavailable Ace Gilman Unavailable Triston Resendez MD Unavailable Unavailable Triston Resendez MD Unavailable Unavailable Triston Resendez MD Unavailable Unavailable Triston Resendez MD Unavailable Unavailable Triston Resendez MD Unavailable Unavailable WheatlandTriston MD Unavailable Unavailable MalTriston MD Unavailable Unavailable MalTriston MD Unavailable Unavailable MalTriston MD Unavailable Unavailable MalTriston MD Unavailable Unavailable MalTriston MD Unavailable Unavailable WheatlandTriston MD Unavailable Unavailable MalTriston MD Unavailable Unavailable WheatlandTriston MD Unavailable Unavailable WheatlandTriston MD Unavailable Unavailable WheatlandTriston MD Unavailable Unavailable WheatlandTriston MD Unavailable Unavailable MalTriston MD Unavailable Unavailable WheatlandTriston MD Unavailable Unavailable WheatlandTriston MD Unavailable Unavailable WheatlandTriston MD Unavailable Unavailable MalTriston MD Unavailable Unavailable MalTriston MD Unavailable Unavailable WheatlandTriston MD Unavailable Unavailable AmlTriston MD Unavailable Unavailable WheatlandTriston MD Unavailable Unavailable MalTriston MD Unavailable Unavailable WheatlandTriston MD Unavailable Unavailable MalTriston MD Unavailable Unavailable WheatlandTriston MD Unavailable Unavailable WheatlandTriston MD Unavailable Unavailable WheatlandTriston MD Unavailable Unavailable WheatlandTriston MD Unavailable Unavailable MalTriston MD Unavailable Unavailable MalTriston MD Unavailable Unavailable MalTriston MD Unavailable Unavailable WheatlandTriston MD Unavailable Unavailable MalTriston MD Unavailable Unavailable MalTriston MD Unavailable Unavailable WheatlandTriston MD Unavailable Unavailable MalTriston mclean MD Unavailable Unavailable WheatlandTriston MD Unavailable Unavailable MalTriston MD Unavailable Unavailable MalTriston mclean MD Unavailable Unavailable MalTriston MD Unavailable Unavailable WheatlandTriston MD Unavailable Unavailable MalTriston mclean MD Unavailable Unavailable WheatlandTriston mclean MD Unavailable Unavailable MalTriston MD Unavailable Unavailable MalTriston MD Unavailable Unavailable WheatlandTriston MD Unavailable Unavailable MalTriston MD Unavailable Unavailable WheatlandTriston MD Unavailable Unavailable MalTriston MD Unavailable Unavailable MalTriston MD Unavailable Unavailable MalTriston MD Unavailable Unavailable WheatlandTriston MD Unavailable Unavailable WheatlandTriston MD Unavailable Unavailable MalTriston MD Unavailable Unavailable MalTriston MD Unavailable Unavailable MalTriston MD Unavailable Unavailable MalTriston MD Unavailable Unavailable WheatlandTriston MD Unavailable Unavailable MalTriston MD Unavailable Unavailable MalTriston MD Unavailable Unavailable MalTriston MD Unavailable Unavailable WheatlandTriston MD Unavailable Unavailable MalTriston MD Unavailable Unavailable MalTriston MD Unavailable Unavailable MalTriston MD Unavailable Unavailable WheatlandTriston MD Unavailable Unavailable WheatlandTriston MD Unavailable Unavailable MalTriston MD Unavailable Unavailable MalTriston MD Unavailable Unavailable WheatlandTriston MD Unavailable Unavailable MalTriston MD Unavailable Unavailable WheatlandTriston MD Unavailable Unavailable MalTriston MD Unavailable Unavailable MalTriston MD Unavailable Unavailable WheatlandTriston MD Unavailable Unavailable WheatlandTriston MD Unavailable Unavailable MalTriston MD Unavailable Unavailable MalTriston MD Unavailable Unavailable MalTriston MD Unavailable Unavailable MalTriston mclean MD Unavailable Unavailable WheatlandTriston MD Unavailable Unavailable WheatlandTriston MD Unavailable Unavailable DULKIN CASS MD Unavailable Unavailable DULKIN CASS MD Unavailable Unavailable DULKINCASS MD Unavailable Unavailable DULKINCASS MD Unavailable Unavailable DULKINCASS MD Unavailable Unavailable DULKINCASS MD Unavailable Unavailable DULKINCASS MD Unavailable Unavailable DULKINCASS MD Unavailable Unavailable DULKINCASS MD Unavailable Unavailable DULKINCASS MD Unavailable Unavailable DULKINCASS MD Unavailable Unavailable DULKINCASS MD Unavailable Unavailable DULKINCASS MD Unavailable Unavailable DULKIN CASS MD Unavailable Unavailable DULKIN CASS MD Unavailable Unavailable DULKIN CASS MD Unavailable Unavailable DULKIN CASS MD Unavailable Unavailable DULKIN CASS MD Unavailable Unavailable DULKINCASS MD Unavailable Unavailable DULKINCASS MD Unavailable Unavailable DULKINCASS MD Unavailable Unavailable DULKINCASS MD Unavailable Unavailable DULKIN CASS MD Unavailable Unavailable DULKIN CASS MD Unavailable Unavailable DULKIN CASS MD Unavailable Unavailable DULKIN CASS MD Unavailable Unavailable DULKIN CASS MD Unavailable Unavailable DULKINCASS MD Unavailable Unavailable DULKIN CASS MD Unavailable Unavailable DULKINCASS MD Unavailable Unavailable DULKIN CASS MD Unavailable Unavailable DULKIN CASS MD Unavailable Unavailable DULKIN, CASS MD Unavailable Unavailable DULKIN, CASS MD Unavailable Unavailable DULKIN, CASS MD Unavailable Unavailable DULKIN, CASS MD Unavailable Unavailable DULKIN, CASS MD Unavailable Unavailable DULKIN, CASS MD Unavailable Unavailable DULKIN, CASS MD Unavailable Unavailable DULKIN, CASS MD Unavailable Unavailable DULKIN, CASS MD Unavailable Unavailable DULKIN, CASS MD Unavailable Unavailable DULKIN, CASS MD Unavailable Unavailable DULKIN, CASS MD Unavailable Unavailable DULKIN, CASS MD Unavailable Unavailable DULKIN, CASS MD Unavailable Unavailable DULKIN, CASS MD Unavailable Unavailable DULKIN, CASS MD Unavailable Unavailable DULKIN, CASS MD Unavailable Unavailable DULKIN, CASS MD Unavailable Unavailable DULKIN, CASS MD Unavailable Unavailable DULKIN, CASS MD Unavailable Unavailable DULKIN, CASS MD Unavailable Unavailable DULKIN, CASS MD Unavailable Unavailable DULKIN, CASS MD Unavailable Unavailable DULKIN, CASS MD Unavailable Unavailable DULKIN, CASS MD Unavailable Unavailable DULKIN, CASS MD Unavailable Unavailable ALLY, LUIS ANTONIO SUBSCRIPTION CLERK Unavailable Unavailable ALLY, LUIS ANTONIO SUBSCRIPTION CLERK Unavailable Unavailable ALLY, LUIS ANTONIO SUBSCRIPTION CLERK Unavailable Unavailable ALLY, LUIS ANTONIO SUBSCRIPTION CLERK Unavailable Unavailable ALLY, LUIS ANTONIO SUBSCRIPTION CLERK Unavailable Unavailable ALLY, LUIS ANTONIO SUBSCRIPTION CLERK Unavailable Unavailable ALLY, LUIS ANTONIO SUBSCRIPTION CLERK Unavailable Unavailable ALLY, LUIS ANTONIO SUBSCRIPTION CLERK Unavailable Unavailable ALLY, LUIS ANTONIO SUBSCRIPTION CLERK Unavailable Unavailable ALLY, LUIS ANTONIO SUBSCRIPTION CLERK Unavailable Unavailable ALLY, LUIS ANTONIO SUBSCRIPTION CLERK Unavailable Unavailable ALLY, LUIS ANTONIO SUBSCRIPTION CLERK Unavailable Unavailable ALLY, LUIS ANTONIO SUBSCRIPTION CLERK Unavailable Unavailable ALLY, LUIS ANTONIO SUBSCRIPTION CLERK Unavailable Unavailable ALLY, LUIS ANTONIO SUBSCRIPTION CLERK Unavailable Unavailable ALLY, LUIS ANTONIO SUBSCRIPTION CLERK Unavailable Unavailable ALLY, LUIS ANTONIO SUBSCRIPTION CLERK Unavailable Unavailable ALLY, LUIS ANTONIO SUBSCRIPTION CLERK Unavailable Unavailable ALLY, LUIS ANTONIO SUBSCRIPTION CLERK Unavailable Unavailable ALLY, LUIS ANTONIO SUBSCRIPTION CLERK Unavailable Unavailable ALLY, LUIS ANTONIO SUBSCRIPTION CLERK Unavailable Unavailable ALLY, LUIS ANTONIO SUBSCRIPTION CLERK Unavailable Unavailable ALLY, LUIS ANTONIO SUBSCRIPTION CLERK Unavailable Unavailable ALLY, LUIS ANTONIO SUBSCRIPTION CLERK Unavailable Unavailable ALLY, LUIS ANTONIO SUBSCRIPTION CLERK Unavailable Unavailable ALLY, LUIS ANTONIO SUBSCRIPTION CLERK Unavailable Unavailable ALLY, LUIS ANTONIO SUBSCRIPTION CLERK Unavailable Unavailable ALLY, LUIS ANTONIO SUBSCRIPTION CLERK Unavailable Unavailable ALLY, LUIS ANTONIO SUBSCRIPTION CLERK Unavailable Unavailable ALLY, LUIS ANTONIO SUBSCRIPTION CLERK Unavailable Unavailable ALLY, LUIS ANTONIO SUBSCRIPTION CLERK Unavailable Unavailable ALLY, LUIS ANTONIO SUBSCRIPTION CLERK Unavailable Unavailable ALLY, LUIS ANTONIO SUBSCRIPTION CLERK Unavailable Unavailable ALLY, LUIS ANTONIO SUBSCRIPTION CLERK Unavailable Unavailable ALLY, LUIS ANTONIO SUBSCRIPTION CLERK Unavailable Unavailable ALLY, LUIS ANTONIO SUBSCRIPTION CLERK Unavailable Unavailable ALLY, LUIS ANTONIO SUBSCRIPTION CLERK Unavailable Unavailable ALLY, LUIS ANTONIO SUBSCRIPTION CLERK Unavailable Unavailable ALLY, LUIS ANTONIO SUBSCRIPTION CLERK Unavailable Unavailable ALLY, LUIS ANTONIO SUBSCRIPTION CLERK Unavailable Unavailable ALLY, LUIS ANTONIO SUBSCRIPTION CLERK Unavailable Unavailable ALLY, LUIS ANTONIO SUBSCRIPTION CLERK Unavailable Unavailable Louise Delgado JR, MD Unavailable Unavailable Louise Delgado JR, MD Unavailable Unavailable Louise Delgado JR, MD Unavailable Unavailable Louise Delgado JR, MD Unavailable Unavailable Louise Delgado JR, MD Unavailable Unavailable Louise Delgado JR, MD Unavailable Unavailable Louise Delgado JR, MD Unavailable Unavailable Louise Delgado JR, MD Unavailable Unavailable Louise Delgado JR, MD Unavailable Unavailable Louise Delgado JR, MD Unavailable Unavailable Louise Delgado JR, MD Unavailable Unavailable Louise Delgado JR, MD Unavailable Unavailable Louise Delgado JR, MD Unavailable Unavailable Louise Delgado JR, MD Unavailable Unavailable Louise Delgado JR, MD Unavailable Unavailable Louise Delgado JR, MD Unavailable Unavailable Louise Delgado JR, MD Unavailable Unavailable Louise Delgado JR, MD Unavailable Unavailable Louise Delgado JR, MD Unavailable Unavailable Louise Delgado JR, MD Unavailable Unavailable Louise Delgado JR, MD Unavailable Unavailable Louise Delgado JR, MD Unavailable Unavailable Louise Delgado JR, MD Unavailable Unavailable Louise Delgado JR, MD Unavailable Unavailable Louise Delgado JR, MD Unavailable Unavailable Louise Delgado JR, MD Unavailable Unavailable Louise Delgado JR, MD Unavailable Unavailable Louise Delgado JR, MD Unavailable Unavailable Louise Delgado JR, MD Unavailable Unavailable Louise Delgado JR, MD Unavailable Unavailable Louise Delgado JR, MD Unavailable Unavailable Louise Delgado JR, MD Unavailable Unavailable Louise Delgado JR, MD Unavailable Unavailable Louise Delgado JR, MD Unavailable Unavailable Louise Delgado JR, MD Unavailable Unavailable Louise Delgado JR, MD Unavailable Unavailable Louise Delgado JR, MD Unavailable Unavailable Louise Delgado JR, MD Unavailable Unavailable Louise Delgado JR, MD Unavailable Unavailable Louise Delgado JR, MD Unavailable Unavailable Louise Delgado JR, MD Unavailable Unavailable Louise Delgado JR, MD Unavailable Unavailable Louise Delgado JR, MD Unavailable Unavailable Louise Delgado JR, MD Unavailable Unavailable Louise Delgado JR, MD Unavailable Unavailable Louise Delgado JR, MD Unavailable Unavailable Louise Delgado JR, MD Unavailable Unavailable Louise Delgado JR, MD Unavailable Unavailable Louise Delgado JR, MD Unavailable Unavailable Louise Delgado JR, MD Unavailable Unavailable Louise Delgado JR, MD Unavailable Unavailable Louise Delgado JR, MD Unavailable Unavailable Louise Delgado JR, MD Unavailable Unavailable Louise Delgado JR, MD Unavailable Unavailable Louise Delgado JR, MD Unavailable Unavailable Louise Delgado JR, MD Unavailable Unavailable MIRTHA, K DEDRICK MD Unavailable Unavailable MIRTHA, K DEDRICK MD Unavailable Unavailable MIRTHA, K DEDRICK MD Unavailable Unavailable MIRTHA, K DEDRICK MD Unavailable Unavailable MIRTHA, K DEDRICK MD Unavailable Unavailable MIRTHA, K DEDRICK MD Unavailable Unavailable MIRTHA, K DEDRICK MD Unavailable Unavailable MIRTHA, K DEDRICK MD Unavailable Unavailable MIRTHA, K DEDRICK MD Unavailable Unavailable MIRTHA, K DEDRICK MD Unavailable Unavailable MIRTHA, K DEDRICK MD Unavailable Unavailable MIRTHA, K DEDRICK MD Unavailable Unavailable MIRTHA, K DEDRICK MD Unavailable Unavailable MIRTHA, K DDERICK MD Unavailable Unavailable MIRTHA, K DEDRICK MD Unavailable Unavailable MIRTHA, K DEDRICK MD Unavailable Unavailable MIRTHA, K DEDRICK MD Unavailable Unavailable MIRTHA, K DEDRICK MD Unavailable Unavailable MIRTHA, K DEDRICK MD Unavailable Unavailable MIRTHA, K DEDRICK MD Unavailable Unavailable MIRTHA, K DEDRICK MD Unavailable Unavailable MIRTHA, K DEDRICK MD Unavailable Unavailable MIRTHA, K DEDRICK MD Unavailable Unavailable MIRTHA, K DEDRCIK MD Unavailable Unavailable MIRTHA, K DEDRICK MD Unavailable Unavailable MIRTHA, K DEDRICK MD Unavailable Unavailable MIRTHA, K DEDRICK MD Unavailable Unavailable MIRTHA, K DEDRICK MD Unavailable Unavailable MIRTHA, K DEDRICK MD Unavailable Unavailable MIRTHA, K DEDRICK MD Unavailable Unavailable MIRTHA, K DEDRICK MD Unavailable Unavailable MIRTHA, K DEDRICK MD Unavailable Unavailable MIRTHA, K DEDRICK MD Unavailable Unavailable MIRTHA, K DEDRICK MD Unavailable Unavailable MIRTHA, K DEDRICK MD Unavailable Unavailable MIRTHA, K DEDRICK MD Unavailable Unavailable MIRTHA, K DEDRICK MD Unavailable Unavailable MIRTHA, K DEDRICK MD Unavailable Unavailable MIRTHA, K DEDRICK MD Unavailable Unavailable MIRTHA, K DEDRICK MD Unavailable Unavailable MIRTHA, K DEDRICK MD Unavailable Unavailable MIRTHA, K DEDRICK MD Unavailable Unavailable MIRTHA, K DEDRICK MD Unavailable Unavailable MIRTHA, K DEDRICK MD Unavailable Unavailable MIRTHA, K DEDRICK MD Unavailable Unavailable MIRTHA, K DEDRICK MD Unavailable Unavailable MIRTHA, K DEDRICK MD Unavailable Unavailable HERMINIA STROUDGARLAND Unavailable Unavailable HERMINIA STROUDGARLAND Unavailable Unavailable Re-disclosure Warning The records that you are about to access may contain information from federally-assisted alcohol or drug abuse programs. If such information is present, then the following federally mandated warning applies: This information has been disclosed to you from records protected by federal confidentiality rules (42 CFR part 2). The federal rules prohibit you from making any further disclosure of this information unless further disclosure is expressly permitted by the written consent of the person to whom it pertains or as otherwise permitted by 42 CFR part 2. A general authorization for the release of medical or other information is NOT sufficient for this purpose. The Federal rules restrict any use of the information to criminally investigate or prosecute any alcohol or drug abuse patient.The records that you are about to access may contain highly sensitive health information, the redisclosure of which is protected by Article 27-F of the [facility] Public Health law. If you continue you may have access to information: Regarding HIV / AIDS; Provided by facilities licensed or operated by the [facility] Office of Mental Health; or Provided by the [facility] Office for People With Developmental Disabilities. If such information is present, then the following [facility] mandated warning applies: This information has been disclosed to you from confidential records which are protected by state law. State law prohibits you from making any further disclosure of this information without the specific written consent of the person to whom it pertains, or as otherwise permitted by law. Any unauthorized further disclosure in violation of state law may result in a fine or nursing home sentence or both. A general authorization for the release of medical or other information is NOT sufficient authorization for further disc losure. Allergies and Adverse Reactions Type Description Substance Reaction Status Data Source(s ) Propensity to adverse reactions NO KNOWN ALLERGIES NO KNOWN ALLERGIES Propensity to adverse reactions NO ALLERGIES ON FILE NO ALLERGIES ON FILE Family History Family Member Name Family Member Gender Family Member Status Date o f Status Description Data Source(s) Unknown Female Problem [facility] ([facility]) Encounters Encounter Providers Location Date Indications Data Source(s ) Outpatient Attender: DEDRICK SHANNON MD [facility] 12:30:00 PM EST [facility] ([facility]) Outpatient Attender: Garland Peña [facility] 12:07:00 PM EST [facility] ([facility]) INPATIENT Attender: CASS Lopeze nder: Ace SeedatAttender: FIDELD SEEDAT MDAttender: GALINA BHAGAT MDAdmitter: ZED SEEDAT MDConsultant: Zed SeedatConsultant: ACE SEEDJANINE MDConsultant: Garland PeñaConsultant: GARLAND HOPE MD 2E-3A 07/08/2021 12:20:00 PM EST - 07/10/2021 03:53:00 PM EST Patient discharged. Outpatient Attender: Javon Puri/Amanda/Satinder/Karley dl 07/07/2021 12:45:00 PM EST [facility] Outpatient Attender: Khadar Wan 1 10:40:00 AM EDT [facility] ([facility] ) Outpatient Attender: Khadar Wan 0 11/25/2020 08:00:00 AM EDT [facility] ([facility] ) Outpatient Attender: LUIS ANTONIO CANALES NP 10/20/19 05:44:49 PM EST - 10/19/2020 06:17:34 PM EST [facility] ([facility] ) Medications Medication Brand Name Start Date Product Form Dose Route Admi nistrative Instructions Pharmacy Instructions Status Indications Reaction Description Data Source(s) 24 HR metoprolol succinate 100 MG Extended Release Ora l Tablet Metoprolol Succinate ER 07/26/2021 12:00:00 AM EST ORAL active [facility] ([facility]) 24 HR metoprolol succinate 50 MG Extende d Release Oral Tablet metoprolol succinate (TOPROL-XL) 50 mg 24 hr tablet metoprolol succinate (TOPROL-XL) 50 mg 24 hr tablet 07/11/2021 12:00:00 AM EST 50 mg oral activ e Take 1 tablet (50 mg total) by mouth 1 (one) time each day. Do not crush or chew. 50 mg 07/10/2021 12:00:00 AM EST tablet extended release 24 hr 90 TAKE ONE TABLET BY MOUTH EVERY DAY TAKE ONE TABLET BY MOUTH EVERY DAY SOLD: 07/10/2021 [facility] Cephalexin 500 MG Oral Capsule CEPHALEXIN 05/04/2021 12:00:00 AM EDT capsule 20 TAKE ONE CAPSULE BY MOUTH EVERY 12 HOURS TAKE ONE CAPS ULE BY MOUTH EVERY 12 HOURS SOLD: 05/05/2021 [facility] 0.77 % 01/09/2021 12:00:00 AM EDT gel 45 APPLY TOPICALLY TO THE FEET TWICE A DAY FOR 2 WEEKS THEN NEEDED APPLY TOPICALLY TO THE FEET TWICE A DAY FOR 2 WEEKS THEN NEEDED SOLD: 01/17/2021 [facility] 20-25 mg 11/25/2020 12:00:00 AM EDT tablet 90 TAKE ONE TABLET BY MOUTH EVERY DAY TAKE ONE TABLET BY MOUTH EVERY DAY SOLD: 12/03/2020 [facility] Hydrochlorothiazide 25 MG / Lisinopril 2 0 MG Oral Tablet lisinopriL- hydrochlorothiazide (PRINZIDE) 20-25 mg per tablet lisinopriL- hydrochlorothiazide (PRINZIDE) 20-25 mg per tablet 11/25/2020 12:00:00 AM EDT 1 {tbl} oral aborted Take 1 tab let by mouth 1 (one) time each day. -PT NON COMPLIANT 7.5-325 mg 08/11/2020 12:00:00 AM EST tablet 16 TAKE ONE TABLET BY MOUTH EVERY 6 HOURS NEEDED FOR PAIN MAXIMUM DAILY DOSE = 4 TAKE ONE TABLET BY MOUTH EVERY 6 HOURS NEEDED FOR PAIN MAXIMUM DAILY DOSE = 4 SOLD: 08/11/2020 [facility] 500 mg 08/11/2020 12:00:00 AM EST capsule 28 TAKE ONE CAPSULE BY MOUTH FOUR TIMES A DAY FOR 7 DAYS TAKE ONE CAPSULE BY MOUTH FOUR TIMES A DAY FOR 7 DAYS SOLD: 08/11/2020 [facility] 800 mg 07/11/2020 12:00:00 AM EST tablet 15 TAKE ONE TABLET BY MOUTH THREE TIMES A DAY NEEDED TAKE ONE TABLET BY MOUTH THREE TIMES A DAY NEEDED S OLD: 07/14/2020 [facility] 500 mg 07/11/2020 12:00:00 AM EST capsule 21 TAKE ONE CAPSULE BY MOUTH THREE TIMES A DAY FOR 7 DAYS TAKE ONE CAPSULE BY MOUTH THREE TIMES A DAY FOR 7 DAYS SOLD: 07/14/2020 [facility] Insurance Providers Payer name Policy type / Coverage type Policy ID Covered alliance party ID Covered alliance party's relationship to chen Policy Chen Plan Information STATE INSURANCE FUND [id number] [employer] BCBS [id number] Maria De Jesus YLS [id number] UNITED [employer]CARE [id number] SP [id number] BLUE CROSS [id number] SP [id number] SELF PAY [employer]. [id number] Self [id number] [facility] DEPARTMENT OF CORRECTIONS [id number] [facility] DEPARTMENT OF CORRECTIONS [id number] Self XXX-[id number] BCBS EMPIRE [place] DIV [id number] SP [id number] [facility] [place] Commercial [id number] Self [id number] UNITED HE[employer]CARE [id number] SP [id number] [employer] [facility] [place] Commercial [id number] Self BCBS [facility] DIV [id number] SP [id number] ID IDENTIFICATION [id number] Other Insurance [id number] [place] Plan [id number] Commercial Insurance [id number] [employer] [facility] [place] Commercial [id number] Self [id number] [employer] [facility] [place] Commercial [id number] Self [id number] UNITED [employer]ARE [id number] SP [id number] [employer] [id number] SP [id number] Problems, Conditions, and Diagnoses Code Display Name Description Problem Type Effective Dates Data Source(s) E86.0 Dehydration Dehydration Diagnosis 07/09/2021 05:11:35 PM EST R55 Syncope and collapse Syncope and collapse Diagnosis 07/08/2021 04:54:33 PM [facility] D72.829 Elevated white blood cell count, unspeci fied Elevated white blood cell count, unspecified Diagnosis 07/08/2021 12:20:00 PM EST ems ems Diagnosis 07/08/2021 12:20:00 PM ES T Z01.810 Preoperative cardiovascular examination Preoperative cardiovascular examination Problem 07/26/2021 12:00:00 AM EST [facility] ([facility]) E66.01 Morbid obesity Morbid obesity Problem 07/26/2021 12:00: 00 AM EST [facility] ([facility]) G47.33 Obstructive sleep apnea syndrome Obstructive sle ep apnea syndrome Problem 07/26/2021 12:00:00 AM EST [facility] ([facility]) Surgeries/Procedures Procedure Description Date Indications Data Source(s) OFFICE OUTPATIENT VISIT 25 MINUTES 07/26/2021 12:00:00 AM EST [facility] ([facility]) BASIC METABOLIC PANEL CALCIUM TOTAL <td>BASIC METABOLI C PANEL</td><td>Routine</td><td>07/10/2021 5:47 AM EST</td><td> Syncope, unspecified syncope type</td><td> </td> 07/10/2021 05:47:00 AM EST Syncope, unspecified syncope type Syncope, unspecified syncope type ECG ROUTINE ECG W/LEAST 12 LDS TRCG ONLY W/O I&R <td>E CG 12- LEAD</td><td>STAT</td><td>07/09/2021 3:38 PM EST</td><td> Syncope, unspecified syncope type</td><td> </td> 07/09/2021 03:38:57 PM EST Syncope, unspecified syncope type Syncope, unspecified syncope type OBSTRUCTIVE SLEEP APNEA CONSULT <td>OBSTRUCTIVE SLEEP APNEA CONSULT</td><td>Routine</td><td>07/09/2021 2:11 PM EST</td><td></td><td></td> 07/09/2021 02:11:17 PM EST BLOOD COUNT COMPLETE AUTO&AUTO DIFRNTL WBC COUNT <td>H C CBC W/ DIFFERENTIAL</td><td>STAT</td><td>07/09/2021 10:35 AM EST</td><td> Syncope, unspecified syncope type</td><td> </td> 07/09/2021 10:35:00 AM EST Syncope, unspecified syncope type Syncope, unspecified syncope type MAGNESIUM <td>MAGNESIUM</td><td>STAT</ td><td>07/09/2021 10:35 AM EST</td><td> Syncope, unspecified syncope type</td><td> </td> 07/09/2021 10:35:00 AM EST Syncope, unspecified syncope type Syncope, unspecified syncope type COMPREHENSIVE METABOLIC PANEL <td>COMPREHENSIVE METABO LIC PANEL</td><td>STAT</td><td>07/09/2021 10:35 AM EST</td><td> Syncope, unspecified syncope type</td><td> </td> 07/09/2021 10:35:00 AM EST Syncope, unspecified syncope type Syncope, unspecified syncope type ECHO TTHRC R-T 2D W/WOM-MODE COMPL SPEC&COLR DOP <td>E CHO 2D MODE PANEL (WITH COLOR FLOW AND DOPPLER)</td><td>Routine</td><td>07/09/2021 10:21 AM EST</td><td></td><td> </td> 07/09/2021 10:21:07 AM EST C-REACTIVE PROTEIN <td>C-REACTIVE PROTEIN</td>< td>Routine</td><td>07/09/2021 5:21 AM EST</td><td> Syncope, unspecified syncope type</td><td> </td> 07/09/2021 05:21:00 AM EST Syncope, unspecified syncope type Syncope, unspecified syncope type Echocardiography, Profl,Tranthoracic, Realtime Image Documen tatio 07/09/2021 12:00:00 AM EST [facility] ([facility]) INITIAL HOSPITAL CARE/DAY 70 MINUTES 07/09/2021 12:00: 00 AM EST [facility] ([facility]) Echocardiography, Profl,Tranthoracic, Realtime Image Documen tatio 07/09/2021 12:00:00 AM EST [facility] ([facility]) INITIAL HOSPITAL CARE/DAY 70 MINUTES 07/09/2021 12:00: 00 AM EST [facility] ([facility]) LACTATE <td>LACTIC ACID</td><td>STAT </td><td>07/08/2021 5:30 PM EST</td><td> Syncope, unspecified syncope type</td><td> </td> 07/08/2021 05:30:00 PM EST Syncope, unspecified syncope type Syncope, unspecified syncope type POCT TROPONIN UNSOLICITED RESULTS <td>POCT TROPONIN UN SOLICITED RESULTS</td><td>STAT</td><td>07/08/2021 4:19 PM EST</td><td> Syncope, unspecified syncope type</td><td> </td> 07/08/2021 04:19:00 PM EST Syncope, unspecified syncope type Syncope, unspecified syncope type ECG ROUTINE ECG W/LEAST 12 LDS TRCG ONLY W/O I&R <td>E CG 12- LEAD</td><td>STAT</td><td>07/08/2021 4:15 PM EST</td><td> Syncope, unspecified syncope type</td><td> </td> 07/08/2021 04:15:28 PM EST Syncope, unspecified syncope type Syncope, unspecified syncope type PROTHROMBIN TIME <td>PROTHROMBIN TIME NO THER APY OR UNKNOWN</td><td>STAT</td><td>07/08/2021 3:20 PM EST</td><td> Syncope, unspecified syncope type</td><td> </td> 07/08/2021 03:20:00 PM EST Syncope, unspecified syncope type Syncope, unspecified syncope type NATRIURETIC PEPTIDE <td>N-TERMINAL PROBNP (BNP)< /td><td>STAT</td><td>07/08/2021 3:20 PM EST</td><td> Syncope, unspecified syncope type</td><td> </td> 07/08/2021 03:20:00 PM EST Syncope, unspecified syncope type Syncope, unspecified syncope type PROCALCITONIN TEST <td>PROCALCITONIN TEST</td>< td>STAT</td><td>07/08/2021 3:20 PM EST</td><td> Syncope, unspecified syncope type</td><td> </td> 07/08/2021 03:20:00 PM EST Syncope, unspecified syncope type Syncope, unspecified syncope type SEDIMENTATION RATE RBC AUTOMATED <td>SEDIMENTATION RAT E, AUTOMATED</td><td>STAT</td><td>07/08/2021 3:20 PM EST</td><td> Syncope, unspecified syncope type</td><td> </td> 07/08/2021 03:20:00 PM EST Syncope, unspecified syncope type Syncope, unspecified syncope type BLOOD COUNT COMPLETE AUTO&AUTO DIFRNTL WBC COUNT <td>H C CBC W/ DIFFERENTIAL</td><td>STAT</td><td>07/08/2021 3:20 PM EST</td><td> Syncope, unspecified syncope type</td><td> </td> 07/08/2021 03:20:00 PM EST Syncope, unspecified syncope type Syncope, unspecified syncope type MAGNESIUM <td>MAGNESIUM</td><td>STAT</ td><td>07/08/2021 3:20 PM EST</td><td> Syncope, unspecified syncope type</td><td> </td> 07/08/2021 03:20:00 PM EST Syncope, unspecified syncope type Syncope, unspecified syncope type COMPREHENSIVE METABOLIC PANEL <td>COMPREHENSIVE METABO LIC PANEL</td><td>STAT</td><td>07/08/2021 3:20 PM EST</td><td> Syncope, unspecified syncope type</td><td> </td> 07/08/2021 03:20:00 PM EST Syncope, unspecified syncope type Syncope, unspecified syncope type CT HEAD/BRAIN W/O CONTRAST MATERIAL <td>CT HEAD WO CONTRAST</td><td>STAT</td><td>07/08/2021 1:30 PM EST</td><td></td><td> </td> 07/08/2021 01:30:36 PM EST POCT SARS-COV-2, PCR UNSOLICITED RESULTS <td>POCT SARS -COV-2, PCR UNSOLICITED RESULTS</td><td>Routine</td><td>07/08/2021 1:20 PM EST</td><td> Syncope, unspecified syncope type</td><td> </td> 07/08/2021 01:20:00 PM EST Syncope, unspecified syncope type Syncope, unspecified syncope type XR CHEST 1 VIEW <td>XR CHEST 1 VIEW</td><td> STAT</td><td>07/08/2021 12:51 PM EST</td><td></td><td> </td> 07/08/2021 12:51:00 PM EST POCT TROPONIN UNSOLICITED RESULTS <td>POCT TROPONIN UN SOLICITED RESULTS</td><td>STAT</td><td>07/08/2021 12:40 PM EST</td><td> Syncope, unspecified syncope type</td><td> </td> 07/08/2021 12:40:00 PM EST Syncope, unspecified syncope type Syncope, unspecified syncope type ECG ROUTINE ECG W/LEAST 12 LDS TRCG ONLY W/O I&R <td>E CG 12- LEAD</td><td>STAT</td><td>07/08/2021 12:22 PM EST</td><td> Syncope, unspecified syncope type</td><td> </td> 07/08/2021 12:22:29 PM EST Syncope, unspecified syncope type Syncope, unspecified syncope type OFFICE OUTPATIENT NEW 45 MINUTES 07/07/2021 12:00:00 A M EST [facility] ([facility], ) ECG ROUTINE ECG W/LEAST 12 LDS W/I&R 05/28/2021 12:00: 00 AM EDT [facility] ([facility]) OFFICE OUTPATIENT VISIT 25 MINUTES 05/28/2021 12:00:00 AM EDT [facility] ([facility]) Results ID Date Data Source [id number] 07/27/2021 09:39:00 AM EST [facility] ([facility]) Name Value Range Interpretation Code Description Data Suzanne rce(s) Supporting Document(s) Nuclear Exercise/Myoview Laboratory test result [facility] ([facility]) ID Date Data Source [id number] 07/10/2021 04:13:17 PM EST Name Value Range Interpretation Code Description Data Suzanne rce(s) Supporting Document(s) Progress Notes [facility] MSYOKt2tVxTYRvZj61/VGMayLXBmy8XtUZdeVLq4NPcsYIXfS5PzZMA8pN4gILR6SNoWZrTgVkCzXSJz lbm [file] ogICAgICAvRjIgMTggMCBSDQogICAgICAvRjMgMjEgMCBSDQogICAgICAvRjQgMjQgMCBSDQogICAgIC VeGcDqMbckGLXPVHpkRBXxOSEkUbCgBaYwVOWHPz1V EwVcVADeSK0xbzVdlUS1QWU+Re9WEJZqCN8UtGEGL7HsnHXsRJwdR7JUKX1BMHN1RA5WcQHqVU5IeBIT C4MhpQKfFt2cXQMli5JtTb9vF1BNPTJSFHTqQHoxZYjwSYCxMBv3R9F8SQQjN4QUL513bDBjuXb9Em5o Z9NKSUhMCcHpCLhfGImdBVOvYTy1E7E4UIMqQ1CTI1 OsSjRwzvMpU3S+CwOqRVOLVN6FVQJRLYi7N8F0lSZiW9G1hZiUlJY1RK0WTA9LnAMkqAKjn40+PiANCi BnIVHzN5SDMALFPbUlOHmmNWfmBIQkKEd6R7A3AWMiQ9WLN8eqG8s8DO3+IdVUWiIsHMVtLx5QLhKyRy 9WFqTfWL1qwx8PHvPgMGTzZlhNEdl2B8ztipz9yADj RjK9T5K0ZxH3xYLbEY2FQ7O8eMJqHPW9VXJrxST+Fx4Pi9OrAOMfGIo8Q5cmFQZcFIGyTyDkdM66Q++7 hceivNK5Y7j8SFJCeHWgmSmCcdDkA0qXKFM8g3W5PYr/Vh7INGF2uOg0vUIvJVZcZUv3nK7pyFc8ZkLl CF16FBWrGPcygZ3yXtc6B9Sal9TsRf6sBe3ebXQjKa 1LQlTeDLY0wqYmEvSCUhH2aWdzwgqlYTK3B2n7fQD4Li43b7yyqmOti4TvHhY0MDqmJBFxMlUzamZtJX B7blOpxI6cetNtHv1IBBDcCDkgokKnAoGNWb6FDiGjZP98KfpeiE5fzVH+DQogICAgICAgICAgICAgIC AgICAgICAgICAgICAgICAgICAgICAgICAgICAgICAg ICAgICAgICAgICAgICAgICAgICAgICAgICAgICAgICAgICAgICAgICAgICAgICAgICAgICAgDQogICAg ICAgICAgICAgICAgICAgICAgICAgICAgICAgICAgICAgICAgICAgICAgICAgICAgICAgICAgICAgICAg ICAgICAgICAgICAgICAgICAgICAgICAgICAgICAgIC AgICAgDQogICAgICAgICAgICAgICAgICAgICAgICAgICAgICAgICAgICAgICAgICAgICAgICAgICAgIC AgICAgICAgICAgICAgICAgICAgICAgICAgICAgICAgICAgICAgICAgICAgICAgDQogICAgICAgICAgIC AgICAgICAgICAgICAgICAgICAgICAgICAgICAgICAg ICAgICAgICAgICAgICAgICAgICAgICAgICAgICAgICAgICAgICAgICAgICAgICAgICAgICAgICAgDQog ICAgICAgICAgICAgICAgICAgICAgICAgICAgICAgICAgICAgICAgICAgICAgICAgICAgICAgICAgICAg ICAgICAgICAgICAgICAgICAgICAgICAgICAgICAgIC AgICAgICAgDQogICAgICAgICAgICAgICAgICAgICAgICAgICAgICAgICAgICAgICAgICAgICAgICAgIC AgICAgICAgICAgICAgICAgICAgICAgICAgICAgICAgICAgICAgICAgICAgICAgICAgDQogICAgICAgIC AgICAgICAgICAgICAgICAgICAgICAgICAgICAgICAg ICAgICAgICAgICAgICAgICAgICAgICAgICAgICAgICAgICAgICAgICAgICAgICAgICAgICAgICAgICAg DQogICAgICAgICAgICAgICAgICAgICAgICAgICAgICAgICAgICAgICAgICAgICAgICAgICAgICAgICAg ICAgICAgICAgICAgICAgICAgICAgICAgICAgICAgIC AgICAgICAgICAgDQogICAgICAgICAgICAgICAgICAgICAgICAgICAgICAgICAgICAgICAgICAgICAgIC AgICAgICAgICAgICAgICAgICAgICAgICAgICAgICAgICAgICAgICAgICAgICAgICAgICAgDQogICAgIC AgICAgICAgICAgICAgICAgICAgICAgICAgICAgICAg ICAgICAgICAgICAgICAgICAgICAgICAgICAgICAgICAgICAgICAgICAgICAgICAgICAgICAgICAgICAg YUAiOUf4E5ikEXAeDHEaVY7zDBh1Ul9+LDmABeNvMJT1dhRoxM3PCA8gj4GhCDoyGDLsa8HdZUm2GP1H AXGeQIxnKR9XRTtmif0XSISlZAPfhBMHk2veHhWqQH Q6DLQiOsoyYX5KUJDrE5wezpMqZWCkPIMMCLabDJHUSBekLNYMDC5UNzMjA5WdbO05CDVRQq5+DQplbm MsQdrOVaScJLTen1TuDTr7UE9QMDEfPrqif4KuFfLbYKPEXSsqPV9MJHS4QHG1EGGySg5UADOxA007jk QdLA6VVe9IQfTjIC4noo5CCkVnWGDpVprODng2DTze EP8LdRExVXvFhc2pvaCyydOTl5CfjbQseXAYLPPxVIzhjWPlKSCUIMLzoISyDV6eXW7zPTTtCIOqPvQ9 LSXOKT9ZQZDyAYSvfTGzFVYjKMWSVZ7TAJncWFD7LocrxwSsvYLeJIquCP4VXQJvrwQhHsXzGTAWIGy+ Lz2SYA4xt0OpORfsLFVaTP0ycg5UZYhUCdEyZ5S4jI InI8V4WFxzGo3QKKQjFLSnDbUjQGTRJOdzRM1MOQ8ypvG8ZX9QvFQmJCHuMHTcrPJbQNc0F02psSGhXM bsSG3DHTQ+John+Xk4KOKZnJZWaTXTiCqZnHBFWHxRyI8XbF6CCb7AzZ6DcIX91fGvfbiUkMZjuQT9FOP 2vPEUzAYAJPJ5EeKQxpG2zxcXoBcMpANUWHiIqN83k jOOlDISjLYGoUKUxVo6MHYFiL2QqjwZwdDxyrnUvZMIvZAIJOG9PWWmkjpIdtSSvbNdwKB97nYfsCF0A Do1KEvVuFQ3tqp0BtXMqHb6BCMZhZc6MIXTfIFSoDGSvOKS9LSPcQsWcQFopXJGsSYFlUCL6SACjYFCi DO9YSfWiDERqXLqwDOXdISEpRRBqnc6LLSVfSSOaHY P1EvQeNEYmZGTvUXtjCIZiQNRhFOO0BFUmBDNqIU1BIpTdETLuBPDpRhckFSFgGWGhia1WSJLzFLPoLx N2OhTyQPGfEBZuWFumJAUeNUI5LGs1OHHfTKXnAJ3AClPwGQZkYFRgUGjjKHCvMQUoff3HOQQaDKBnIc D4QtOcGEYdPRHiOPvePRWdRCL6VVIxPOZaHLEaSW4D WqLoKMWbHUk4ZOwaIXCkLALpqb7QFUYkPYOmVEM9HKPpBKWbUMClALssQVXnYWK2YtO4DEPrXXArQP5M DcBrJHAlHJRtNOpwGZTdYXKcyn8DOGZlGZYnHBHxXmQiCRJmFADcGQfpIJMuBTEkFZl8UYPuSUGmTC2E EhLcTKLtCKZ4ZMhuGVIiGDEelq5IOBXtTEXiHVm0CU CjTAMtTJYxZSeiCIPrDHChHFY1MFHxRDOjSH1FZrGyQFMmSTI8EFTxOBCnVFHpda2TQTDeZBPjMsQrRD GnFDNjAVOvHXqfUGEmYCWoQta1VYZbTQKbEQ3CNvQdVXKlMOFiJPgrGBFnCOMrha0AAFKqSXAsZGP4KW SnRJWyXLIaDKzfVCKeUSJ2VqEoTMJkSKQfWQ3LUaEm SKHoAKF2TEVtTDVpMIUfhc0CTPFlXXTjCRtuTxVgCBIqXGVeXTupVTNqHVT9YBDqMOVqLOMuNT0PNqUy DCAhBBL3HmNaFOElRPLjzq0QXVJsOJMeArX8LKOySEAtVVXgDCumATGjXMT8SaPaLHHmQLUgWE8TGmAl RHIcUPy5LLOnQCBoIBTzcc1MFOGuLGTnJCQvBgQtOH WiTZFjIKwtKHIzERI1Rin6CTBuVAJsJZ8FTtQkQKTlUVx1HvPeGGZwIHWyzj5BgYShoWanrd2TJLdNCz 3SqWzlPTH6SBicMo9fsDDeTOLrJSTFTs1JkoWnOJZtHAKROAfaNACmRMMjB6ReMLYgDTCuCUE7TfYkTw M3Z7FtPMKyLCJ5AiGlQwM8AdHyJgA3TOWbD4C7Tfl1 ZPOnNqqnWPW6LVOnHANkXWO+SE0cISk+Zz4Ov2NlyzR1ekXkNOsnVGj3Zd6MNEOYA6HRGy== ID Date Data Source [id number] 07/10/2021 01:49:57 PM EST Name Value Range Interpretation Code Description Data Suzanne rce(s) Supporting Document(s) Progress Notes [facility] MUHGFz3hWiXCEdOd56/HGSqdILXmj6RuMLcnKYr5FHdsTIJuM6GnODD8rN5kWLJ1CXyQZqJxWfXfTVZi lbm [file] ICAgICAgICAgICAgICAgICAgICAgICAgICAgICAgICAgICAgICAgICAgICAgICAgICAgICAgICAgICAg ICAgICAgICAgICAgICAgICAgICAgICAgICAgICAgICANCiAgICAgICAgICAgICAgICAgICAgICAgICAg ICAgICAgICAgICAgICAgICAgICAgICAgICAgICAgIC AgICAgICAgICAgICAgICAgICAgICAgICAgICAgICAgICAgICAgICAgICANCiAgICAgICAgICAgICAgIC AgICAgICAgICAgICAgICAgICAgICAgICAgICAgICAgICAgICAgICAgICAgICAgICAgICAgICAgICAgIC AgICAgICAgICAgICAgICAgICAgICAgICANCiAgICAg ICAgICAgICAgICAgICAgICAgICAgICAgICAgICAgICAgICAgICAgICAgICAgICAgICAgICAgICAgICAg ICAgICAgICAgICAgICAgICAgICAgICAgICAgICAgICAgICANCiAgICAgICAgICAgICAgICAgICAgICAg ICAgICAgICAgICAgICAgICAgICAgICAgICAgICAgIC AgICAgICAgICAgICAgICAgICAgICAgICAgICAgICAgICAgICAgICAgICAgICANCiAgICAgICAgICAgIC AgICAgICAgICAgICAgICAgICAgICAgICAgICAgICAgICAgICAgICAgICAgICAgICAgICAgICAgICAgIC AgICAgICAgICAgICAgICAgICAgICAgICAgICANCiAg ICAgICAgICAgICAgICAgICAgICAgICAgICAgICAgICAgICAgICAgICAgICAgICAgICAgICAgICAgICAg ICAgICAgICAgICAgICAgICAgICAgICAgICAgICAgICAgICAgICANCiAgICAgICAgICAgICAgICAgICAg ICAgICAgICAgICAgICAgICAgICAgICAgICAgICAgIC AgICAgICAgICAgICAgICAgICAgICAgICAgICAgICAgICAgICAgICAgICAgICAgICANCiAgICAgICAgIC AgICAgICAgICAgICAgICAgICAgICAgICAgICAgICAgICAgICAgICAgICAgICAgICAgICAgICAgICAgIC AgICAgICAgICAgICAgICAgICAgICAgICAgICAgICAN CiAgICAgICAgICAgICAgICAgICAgICAgICAgICAgICAgICAgICAgICAgICAgICAgICAgICAgICAgICAg ICAgICAgICAgICAgICAgICAgICAgICAgICAgICAgICAgICAgICAgICANCjw/tPIqV3toxAJleaD1J4md Oy6JHz2WOP4ql7LpQFVfHNvxkaSiVynBGkRsMMXuWl oVBut8YBbmFT9ExLHgB3SzU1BrQUkiWY0NOIKsKWRtyHDeVKYdOFEhOgP1WAOsLRygCU3CcLLoUBgxEJ EnWAZbYkLgGACnZEVcAPUiPGNyCZZJCM5BYcKmG5EokR57UGJZWg4+UQiwxnYaWrgTEhJ3ZWOok2AqIU t3HH7NDHQuOljke4RdJhJjGKMHLPaxML3BPLH2TQHz ICFpAa2XWLIfQ021fdBmKE9UBb4PPbCbSX7wsd6EReYbDOJhMwnSSga3GVzePL3VuZUkZYkMpv2kgjMx giABh2MrpvEgvVZAmMBlIHUmS4Dhr5AzdFepAz6WUNR8FONzZdZ5DjJbNhUiTSu5DPYvCO7bOYqsKU2P XON3PYanLAIvVOXzN0bPMwWkVFzkHZNsfLfiOX6DVp DjO0HwqxSqlFBhKXXeKBYPJw2+ZDywfjAvZblNVuNuWSLff9JcQOf5RO6KIXVpTFhtRR1OOVYrlU2bRQ muOM6LBjJfKbMtNSURVnJwF69miSJvHRm6L5TaOhMmVWRvWdhcTEOgOVufSyBmROUlGkKmKHhrEB9+ID 4+DYndSB1UFKlrokLuHBMbHd8NWMMoNVGsDT7rVLJy XNGdI1B2eBeyVWRLTiFlY6xbvqwsRX8eVRRmC117cNravwJbXFN9IRElUe2SXOAyEXO1WIZhdSDdWqhl SRUUZGolKZ1KnPLlMIJ0gQ5iEBxoCKXqLZBeQ9kHBwAqoIrlPB77wTftxgDocAMnBCx+Ol1EBA5yl0Fh HKi3bmEtIYwyWKKqYUkvFKYpCFEvXYFyPIP8CKQ2ME IUHiDeLQLyNYYnASqoTWTqWFHjhj0KMFFkFBMnOlC4EWWtGQSbMQYdZBcaYAAfMVG9WwN6CDXfGJTlFY 9CSxHzSEYeSJHiFJoeTTZaGALpga5SZVUnAMGlHvl9VbPiCQKlVKRbBLmjRNXdGTZbRIB8QONgRHPrMX 5WDnKqEDTrPYJ0SPXcWRVnPEUnpd0IHEHoBXXmXMn0 AmLjUSSnIAIfQCftMQKkBZX4WzY5JVPuPYQgOC4YVcDnUBQrHLs4XBsjLDNeSPKsie4TTOKeZAGxSOC3 EaPmOJDmGDCgZMyhHEIsPTU9Wkk9VUSvGMVqIU6OJtZqRZGuJKQ0JphyZWTgCENskq6AOOOgNCZhCYw2 IIGrIHSmJUSlXKljKXWzNXRwZYB5PWZwMRRxVM6NKf HjTYMjBSGrSKmqHCRbWHTakk6JHZSuAJBlDnB2BNNwKHZwGXNtXJhoPZTvWBVwJFO8XUUnZNTiEG9BWn LuZQYcZVE4TfntAHHvYJUstl5HATHoCJUbZzVsHXVoWRAhHFJoEYfeTRLwNKFkAXA4UTFkCGTuLC4AGz MsOFVaVWJ0KZUvIBGzLOTrgs1AEYXqVCDlJAi2GjWj PTIeZZDpMIwhEFLlQEP0VUN5CSLwLHSsUC6KXkPbTIPcHHVdNdRgCHRxPEHjok3AZQDmIBFyBfElHDEd MFWtKLVjGQapUWWuUNQ0RGZ6CZOxWIAtHA0XOuVdOBLoSQQ8APHhQTAeDUFqmq8LZJFrXRDgQOZ9IjYr JJDcZBEwXNkqUFJqUDY8AQPvMHNgQRYhSC5QXnPkNI HiZTx3NiDaGRQwVHVagx1TpOJoaQfjgt2MWMlZOu0BzWznHFGrWNmpRu3syIMiNPYmFNBLKr8IdkEkZA NeGSKKBGdcXURzPGdoVQNfEgZrGBSuHCMfZeptMdv8X7B3ZAXmXbXxXXY0XfR9M5XnLxHzToWlDfK8SU NsBAJqGxvjJovuDoQ1SHT2TfV+BR3rARa+Jy4Gy9SyzwT6znOoIHesOIkbJQ3VNWHMD1IZBj== ID Date Data Source [id number] 07/10/2021 12:48:51 PM EST Name Value Range Interpretation Code Description Data Suzanne rce(s) Supporting Document(s) Discharge Summary [facility] AHAAQw0jIoGDEdWj74/SVUikUZXgv2SoKWmfPPk2DDugSOUuZ4GxMYU5nM9nGAE9NVmPFsIaPxMeGLKm lbm [file] MDAwMDAwMzQzOSAwMDAwMCBuDQowMDAwMDAzNjQzID EkVXYzAI4DBgKlRRHfLXZ9MsWcSEFvTUZuzw5ZVDSqQVDmYrTvGDRlSXVqGQOpZRwtPIDuIEI2LQI1NI CzHCRlGQ1KZwSdSLAjBWpoMTjaWBEvPBHgye5DMAXgPWDqKNa6WLByRWAxXJAlRYqeUTKiVRR9MEydCF HmUNFpBT0IBjFbPUOtSAjlLdusETOpISQmbj6AJOIc NBArILXoRLNaTALzRXNzXUdaVEIsPOQyASY4LKXtAJQzZR4EQnZwCSFsHRA4RAjfTSXhKAYvqh8MENXa ZUQbKYS1EuEuURYvXGRzCLryFNVzYOBxCGv2INSdZKToER5BVfJrNNWaARFmQmQdIOCjMPDcab9RWQMx MDAxMzAyMiAwMDAwMCBuDQowMDAwMDEzMjIzIDAwMD OuIU9WUpIeBAFaYWW9HSmhQJXlJQBwma6BRYScIBSgIgh2LFFwDSTmLGEbCHorECLaAKM2Pcj4PNKxFK IlPU2AGlFxGLIoKIPbSvHjYHXgENGscf1XMMGvITSoNQXdLNLyFQTvKWPeOPb2vfWznITmWVa2MG0YY4 WhlaNwNedSZy3Qz614BUB5WAVjXo2UW0mkAe6zVXAi ZPLGSd7LIFi2CIJ1WQG8VgBaSdT6WTZ6HFIqRKZ3XFAxTgB7HjXlZfJ+DDquSjEhZAAsRwP4JXd1DoCx EJW4CXohBqIdAoY4NbD8Hm4tOYBGQf0+PChglSLbeMweOENDOfN1YmG8VRrbWNHSUn9G ID Date Data Source [id number] 07/10/2021 07:50:00 AM EST Name Value Range Interpretation Code Description Data Suzanne rce(s) Supporting Document(s) Blood Urea Nitrogen 21 mg/dl 7-18 Above high normal Creatinine 1.18 mg/dl 0.67-1.17 Above high normal [facility] N-Acetylcysteine (NAC) and Metamizole rm ve the potential to falselydepress Creatinine results. Baseline values before medication adminstration are recommended. Patients undergoing treatment with phenindione will have falselydepressed results. Patients on phenindione therapy should be tested with an alternativeCREA method.Toxic levels of acetaminophen may lead to falsely depressed results forpatient samples. Glomerular Filtration Rate 64.00 mL/min/1.73m2 GFR Reference Ranges:Normal Function or Mild Renal Disease,if clinically at risk:>or= 60Moderately decreased:30 - 59Severely decreased:15 - 29Renal Failure:<15 Please note that the MDRD equation requires an additional adjustment forAfrican-Americans (multiply the GFR result by 1.210).Glomarular Filtration Rate (GFR) is estimated based on the MDRDequation, which assumes a steady state for creatinine ([employer] Int Med 139/2 137-149, 2003), as recommended by the NationalKidney Disease Education Program in conjunction with the National Institutes of Health and the National KidneyFoundation. The [place] method used in calculating this result is traceable to IDMS standards. Glucose 83 mg/dl 70-110 Normal (applies to non-numeric resul ts) Sulfasalazine has the potential to false ly depress Glucose results. Sulfapyridine has the potential to falsely elevate Glucose results. Baseline values before medication administration are recommended. Calcium 8.5 mg/dl 8.5-10.1 Normal (applies to non-numeric resul ts) Sodium 142 mEq/L 136-145 Normal (applies to non-numeric resul ts) Potassium 4.6 mEq/L 3.5-5.1 Normal (applies to non-numeric resul ts) Chloride 109.0 mEq/L 98.0-107.0 Above high normal [facility] Carbon Dioxide 27.7 mMol/L 21.0-32.0 Normal (applies to non-numeric results) Anion Gap 9.9 7.0-15.0 Normal (applies to non-numeric resul ts) The above 10 analytes were performed by [facility] [address] [place] [address],[facility]#: [id number],[place] [address] ID Date Data Source [id number] 07/09/2021 07:14:04 PM EST Name Value Range Interpretation Code Description Data Suzanne rce(s) Supporting Document(s) Nursing Note [facility] LJEITs3hWrNYLsHv17/GQTqjGAVyt1WgBZkjUXu0OIaaNJSbQ2CzRZE6rL7lTLY9WObHZbQnOsIuBQU1 lbm [file] 14Gq/estefanía/eUiJEWfVK0gsgsCwBItz5qNjRCX8EcbZuX8T9Cpk4qSYl6pju1Rzy4Xbhat4i91w6VhJCYA [file] 0gDQo+Bl6Yu5WiyzX9xiYxISryXTo9IP0NZEANR5MFVp== ID Date Data Source [id number] 07/09/2021 04:01:21 PM EST Name Value Range Interpretation Code Description Data Suzanne rce(s) Supporting Document(s) Nursing Note [facility] TFAMOa8wBrFQEwKy54/SIWawMXYpk2SfCHynRRa5EApxZZSjP1MoJVE7sE0hLRF0JBfASbZbLcUhNBW5 lbm [file] HhQpHeZuXQ1LCs3CIxW8HND4nJFnEd1UDkX2NUYHDrLcSG2CHVc= ID Date Data Source [id number] 07/09/2021 11:32:58 AM EST Name Value Range Interpretation Code Description Data Suzanne rce(s) Supporting Document(s) Consults WZLWUu4xTlNVWxUh01/EWAbbKWBpb7FjUOyjUTl0JXvuDETkF5ZnMFR2fY1hOAX6QWdHHuUsLwSjPLG8 lbm [file] ICAgICAgICAgICAgICAgICAgICAgICAgICAgICAgIC CgGRFsFLYuXMQkXMSgRHNuQWAlPXZdZUAxFHZaOSLlNCGhRMIhEOPfKFWiAIUaXXPxNHZiUT4ESTAlBF AgICAgICAgICAgICAgICAgICAgICAgICAgICAgICAgICAgICAgICAgICAgICAgICAgICAgICAgICAgIC AgICAgICAgICAgICAgICAgICAgICAgICAgICAgICAg KDUvQZ6KMVCnHLTyVUWnFZYrWETaFPOlXAJeEECzWQUwNNJaOTWdHWXfJIGzUPMwLZTgMFJjNWSoNERk BIYmEVUxJMZyTHSeNXKjNMOyQVHfWMWpDZTgIHVoZGNfIPLgCMWfYFOxOSZzTQ7UAQCtUWHmIYUsYACs ICAgICAgICAgICAgICAgICAgICAgICAgICAgICAgIC MiCRSkTDLdMWEcVYHbAQSeTKSxJQXpACYtGPRyUZZdDPEwATOtQBQtTOFrYUQfTBShXBQdTBXnMQ0HXP AgICAgICAgICAgICAgICAgICAgICAgICAgICAgICAgICAgICAgICAgICAgICAgICAgICAgICAgICAgIC AgICAgICAgICAgICAgICAgICAgICAgICAgICAgICAg DQQsLQLkNE4JQFZuLBMdLNBsJSEgMPFpTKZwBPKrIKCpZKGqGBDcZXDyNMTsHUTkZVTwIIJbCNHjINPv ODDpLRJcETRmOZWdTJChRRFoOTHfVZEwXXXfEPAqAIOhEADgFZCoNFTqFKAaHWShTK8EBOAaELPiGHId ICAgICAgICAgICAgICAgICAgICAgICAgICAgICAgIC AgICAgICAgICAgICAgICAgICAgICAgICAgICAgICAgICAgICAgICAgICAgICAgICAgICAgICAgICAgIA 0KICAgICAgICAgICAgICAgICAgICAgICAgICAgICAgICAgICAgICAgICAgICAgICAgICAgICAgICAgIC AgICAgICAgICAgICAgICAgICAgICAgICAgICAgICAg VXNdGLSbCUMjKT5MISZmXZDnWJXvMADmAKTiBRVwVLObDAWlOLHjQQPlDXFsQXTzZDWyCFUyYCBwAKFs EQVcXMEsMHDkVZNcJGKhVOFgKIGnNUAcVONuJEPzNEEhYSLcJIJyHCBgLUZdRTJkWKKaVK7BLN04cJMp n4Z9YUJjXW3oipd/Dz4FVMgjbyEyqKCkSV1EJzGfKY 9oeb4CUxRrFV7izr0POEyPBtOsN9E2uIYwFHBvNEYDKyInW87mZBtpZd48EEknKZQvNuBgNSf4Fr5KEo KgX3ciRXAqCwF8PUOzJbC8PSHkHyM1FDCvXlEsBOkvZL4Xv1WqtJUiKSk+Pb9JBF3ma9FnAAvuYDPgHP 3kdc5FHBgVWcJzX3LfdsM5AFS4RXZfDq7SQFViSSHv vVZmUeSbPTLUZbBoU3EvdU84RTMBZv3+CJddetXxUnwROcO5ENWzo9OiYRl2HL9WUVQzDMd3aMAaG70l j4UzdFEkRfhhXk6rjjNEL0fjsMxwxYqvQDBAHAZikOVsEE5oMN8gLOXdRRFvFxY2UTMPMV7WUBPcOJNz nUOpWIVmYIEFHA7YYSnoZRI8KqteksFquYRrIElsHK 9QYXJlbnQgMzUgMCBSDQo+Fg1EWM2iw3HbALcvZzQoUJ5xhk2TJHiAHePgP9R7wJQuJ2Q4CSobBw6IEN RwEIRbXnGpKMPZIGzuPC9SSX6sobJ6BQ8MtWJtJJGuOABscVZaDSj5U01xhKRkJMjlUN1ZNYX+John+Pg 1QUWLzLDNzHEAmSvBdOILJPeJiY8RwY8NJn2JmJ0Ed VA03zQyrbxTdUIifHP5TMJ6dXBAeEOKVAW1DoUMlyQ4vzjBnIFLeTPMEKvXyP06iuGDdFMBaJWT6PTOs Vm4DYJJwX6AahtNvqGxcjvQyVSGqRXWSGS9ETQgcdgCazCXecZhxFA97tGrqEK2WJu7NJtWcZM0zst3X tLOlHy3NDCRtBG9LQXLvGGQcPASsELN6QHYoQgZzWF nyYUAsHPKlTOK3LPXtAKIeFU4FNaMiHVCkZui1UjZkLLBqAYKmka6BHNCiOSYxTOn2XUPzSXNiIWPoIQ saGBCwWMFlMEB2VVWsJULzGZ6TGzCvNMUzKUC6IdkyGYSfDJKwkf6PJIJaRCShFnh6XuGtWSAsMVMkXT woRAWbNBC1OOlsSVFrGGCbVU3TNiMqCURcOKAaUWNe WNKsOMIleg3LEVKjYIOoQqF3GTKxUADoEFRjMVayIBWwNMP5Tlv3SUYbUQCtNI0MFePbARKdFKi4FGqg KFGnBJJkdm4TRJRpAKHoKRn4TYCdNGVwLTUbYPhiPXMvIRH7FWH0BIIgLBCaIJ9FNlWkFCVzILJuBMmv SRYjLCApeu1LVYZdTAIpUEX9KJWbSJCtHPPsXJxiLE EhLMCdMPh3JKYoBGHwUF0PVqJkHNMmKhJ2ZxadQWHxJOZusi7LKBIjUXRpQuE1PnXrCESoJTVfIElqGT YuZYSgEiEoSBMrMWTlTG1NJnSmMQXyZpH3OYMiVIZdNUEwwu0SUYLaHPLsSnlmODWlPHEnPBDdTEurWL TrTDK4HqwhVPMvIQIiWR6EJfQtIREvSnY3KnXsMMQh AJMcqg4TEQUvQEDmVZHpQJXvOWHzIBLtWVjqSIQqGOR5OUp9AONwQMDaQB6AYcFzQTRuPdTcJglxHKSx CNYrvq1IOTSlYNFlZuS5WiWaXIMhOCEkGHcuKCWiHRA0Dyx0EFMjYLIwXC7ZBtXjGNWgIxz2HmXyHDRf CUVfss5EILHmVXUoLvI8EyZoXWRtZMUdTFhaYMFjVT V2UTm5TELdRMUqHE9FSmDbLFBsUyc6TpIrQOMlKUHrld9XCOUlYDIbMXm6YYIxGBQaQVXmIXbuSAMxDB S2FHZ5QGZvXEDfNF6LJpYtTUDaFoH1IypnBDBnPYRjvj7ATCUlVSUqSHu5RHHxFFNyABQfNPhyJZVoNH DrPSz2EDPoGFItWZ6RCgJcWErmVLBAHth4IJueF6j2 UTYsBT1WK0Ehj2EaGnigUYTXHVuiUK9zjvDtPPSsVs7VK1oFSzlmUbGbOYC7PXVjITLuHaXiTQYzPFa6 GtF6TuAgPrFhLN8zSZF8WmR8FkwhVFJpUZRrDGEwXLK4KZjuRfqiBgEoYVG1AqXnMK9NQp1DJfJ5YOL1 aQQxGb2WLwSbJccKEtCxSH3MWYn= ID Date Data Source [id number] 07/09/2021 11:26:36 AM [facility]ocardi[facility] ReportPatient Name: Orlando Rios Referring Physician:Ace Gilman MD Reading Physician: Garland Peña MD : 1965 Primary Physician: Age: [age] year old Cost Manager: Delilah Avitia RDCS, RT (R) Gender: Male Weight/Height: 120 kg (265 lb) 1.727 m (5' 8") Exam Date: Blood Pressure Location: Rhythym: Indications / History: Syncope; Dizziness ECHO DIMENSIONS:.Measurement 2D Range Measurement 2D Range LVOT No data recorded 1.8-2.2 LV(d) LVID (D): 4.4 cm 3.5-5.6 Ao Root 3 cm 2.0- 3.7 LVID(s) LVID (S): 2.6 cm 2.1-4.0 LA Diameter LA DIAMETER: 3.1 cm 1.9-4.0 LA Volume No data recorded > 34 IVS IVS: (!) 1.2 cm 0.6-1.1 LVPW LVPW: (!) 1.3 cm 0.6-1.1 EF EF: (!) 55 % DOPPLER:Aortic Valve Mitral Valve Diastolic Functions / TDI [...] recorded 2D M-Mode, Doppler and Color Flow imaging was performed. Technical Quality: Technically difficultFINDINGS: 1. The left atrium is normal in size. The left ventricle is normal in size. The right atrium is normal in size. The right ventricle is normal in size. The aortic root is normal in size.2. The mitral valve is structurally normal. The aortic valve is structurally normal. The tricuspid valve is structurally normal. The pulmonic valve is structurally normal.3. Left ventricular wall motion normal. The left ventricular ejection fraction was estimated to be 50-55.4. Color flow and spectral Doppler imaging across the mitral valve reveals no mitral regurgitation and no stenosis. Color flow and spectral Doppler imaging across the aortic valve reveals no aortic stenosis and no regurgitation. Color flow and spectral Doppler imaging across the pulmonic valve reveals no pulmonic insufficiency. Color flow and spectral Doppler imaging across the tricuspid valve reveals no tricuspid regurgitation. The right ventricular systolic pressure is normal.5. There is no fluid in the pericardial space.Conclusions:Normal LV systolic function, LVEF 50-55 percent, no major valvular heart disease.Garland Peña MD Name Value Range Interpretation Code Description Data [facility] rce(s) Supporting Document(s) ID Date Data Source [id number] 07/09/2021 11:20:00 AM EST Name Value Range Interpretation Code Description Data [facility] rce(s) Supporting Document(s) AST 17 IU/L 15-37 Normal (applies to non-numeric resul ts) Sulfasalazine and sulfapyridine have the potential to falsely depressAspartate Aminotransferase results. Baseline values before medication administration are recommended. ALT 25 IU/L 16-61 Normal (applies to non-numeric resul ts) Sulfasalazine and sulfapyridine have the potential to falsely depressAlanine Aminotransferase results. Baseline values before medication administration are recommended. Alkaline Phosphatase 65 mIU/ml 50-136 Normal (applies to non-num jack results) Total Bilirubin 0.90 mg/dl 0.20-1.00 Normal (applies to non-numeric results) Blood Urea Nitrogen 28 mg/dl 7-18 Above high normal Creatinine 1.45 mg/dl 0.67-1.17 Above high normal [facility] N-Acetylcysteine (NAC) and Metamizole rm ve the potential to falselydepress Creatinine results. Baseline values before medication adminstration are recommended. Patients undergoing treatment with phenindione will have falselydepressed results. Patients on phenindione therapy should be tested with an alternativeCREA method.Toxic levels of acetaminophen may lead to falsely depressed results forpatient samples. Glomerular Filtration Rate 51.00 mL/min/1.73m2 GFR Reference Ranges:Normal Function or Mild Renal Disease,if clinically at risk:>or= 60Moderately decreased:30 - 59Severely decreased:15 - 29Renal Failure:<15 Please note that the MDRD equation requires an additional adjustment forAfrican-Americans (multiply the GFR result by 1.210).Glomarular Filtration Rate (GFR) is estimated based on the MDRDequation, which assumes a steady state for creatinine ([place] Int Med 139/2 137-149, 2003), as recommended by the NationalKidney Disease Education Program in conjunction with the National Institutes of Health and the National KidneyFoundation. The [place] method used in calculating this result is traceable to IDMS standards. Glucose 165 mg/dl 70-110 Above high normal [facility] Sulfasalazine has the potential to false ly depress Glucose results. Sulfapyridine has the potential to falsely elevate Glucose results. Baseline values before medication administration are recommended. Calcium 9.0 mg/dl 8.5-10.1 Normal (applies to non-numeric resul ts) Total Protein 7.5 g/dl 6.4-8.2 Normal (applies to non-numeric re sults) Albumin 3.1 g/dl 3.4-5.0 Below low normal Sodium 138 mEq/L 136-145 Normal (applies to non-numeric resul ts) Potassium 4.1 mEq/L 3.5-5.1 Normal (applies to non-numeric resul ts) [facility] Chloride 105.0 mEq/L 98.0-107.0 Normal (applies to non-numeric resu lts) Carbon Dioxide 27.3 mMol/L 21.0-32.0 Normal (applies to non-numeric results) Anion Gap 9.8 7.0-15.0 Normal (applies to non-numeric resul ts) The above 16 analytes were performed by [facility] [id number] [place] [address], ,[place] [address] ID Date Data Source [id number] 07/09/2021 11:20:00 AM EST Name Value Range Interpretation Code Description Data Suzanne rce(s) Supporting Document(s) Magnesium 2.0 mg/dl 1.6-2.6 Normal (applies to non-numeric resul ts) The above 1 analytes [facility] [id number] [place] [address], ,[place] [address] ID Date Data Source [id number] 07/09/2021 10:51:00 AM EST Name Value Range Interpretation Code Description Data Suzanne rce(s) Supporting Document(s) WBC 9.91 x1000/ul 4.80-10.00 Normal (applies to non-numeric re sults) RBC 4.90 x1Mil/ul 4.70-6.10 Normal (applies to non-numeric re sults) Hemoglobin 14.2 g/dl 14.0-18.0 Normal (applies to non-numeric resul ts) Hematocrit 45.4 % 42.0-52.0 Normal (applies to non-numeric resul ts) MCV 92.7 fL 80.0-94.0 Normal (applies to non-numeric resul ts) MCH 29.0 pg 27.0-31.0 Normal (applies to non-numeric resul ts) MCHC 31.3 g/dl 32.2-37.0 Below low normal RDW 14.1 % 11.5-14.5 Normal (applies to non-numeric resul ts) Platelet Count 312 x1000/ul 130-400 Normal (applies to non-numeric results) MPV 10.1 fL 9.4-12.4 Normal (applies to non-numeric resul ts) Neutrophils 52.8 % 40.0-74.0 Normal (applies to non-numeric resu lts) Lymphocytes 31.9 % 19.0-48.0 Normal (applies to non-numeric resu lts) Monocytes 8.0 % 3.4-9.0 Normal (applies to non-numeric resul ts) Eosinophils 5.3 % 0.0-7.0 Normal (applies to non-numeric resu lts) Basophils 1.1 % 0.0-2.0 Normal (applies to non-numeric resul ts) Immature Granulocytes 0.9 % 0.0-0.5 Above high normal Nucleated RBCs 0.00 % 0.00-0.20 Normal (applies to non-numeric r esults) Abs. Neutrophils 5.23 x1000/ul 1.92-8.31 Normal (applies to non-numeric results) Abs. Lymphocyte 3.16 x1000/ul 1.20-3.70 Normal (applies to non-n umeric results) Abs. Monocytes 0.79 x1000/ul 0.14-0.97 Normal (applies to non-nu meric results) Abs. Eosinophils 0.53 x1000/ul 0.00-0.76 Normal (applie s to non-numeric results) Abs. Basophils 0.11 x1000/ul 0.00-0.22 Normal (applies to non-n umeric results) Abs. Immature Gran. 0.09 x1000/ul 0.00-0.02 Above high normal Abs. Nucleated RBCs 0.00 x1000/ul 0.00-0.02 Normal (appl ies to non-numeric results) [facility] The above 24 analytes were performed by [facility] [id number] [facility], ,[place] [address] ID Date Data Source [id number] 07/09/2021 05:58:00 AM [facility] Name Value Range Interpretation Code Description Data Suzanne rce(s) Supporting Document(s) C-Reactive Protein (Non-Cardiac) 47.20 mg/L 0.00-3.00 Above high nor [facility] The above 1 analytes were performed by [facility] [id number] [facility], ,[place] [address] ID Date Data Source [id number] 07/08/2021 07:40:24 PM [facility] Name Value Range Interpretation Code Description Data Suzanne rce(s) Supporting Document(s) H&P SSDWUi1jDiTFMeZf60/JVPacEKReb2UyOTgmGUr0ZZiqSEJiI6AcXVE7aJ8uKVN6MRyVWaJkHgVnWAM9 lbm [file] vice president marketing & development++zGScZmiGPZZ8sEXu7hb+rMqCqeoZKNQ5vJkE6RAx2ucHhK7H5jAk8aMND2djY0kJYIpegvx1yJQ [file] XdwG3WPL24Mp/estefanía/iNxAXWpFN2nqnpErOIqy8qKtAQE4RcmCfV8M8Lft7wQZh2qrw6Zol4Wdxtn2p77 [file] AgICAgICAgICAgICAgICAgICAgICAgICAgICAgICAg ICAgICAgICAgICAgICAgICAgICAgICAgICAgICAgICAgICANCiAgICAgICAgICAgICAgICAgICAgICAg ICAgICAgICAgICAgICAgICAgICAgICAgICAgICAgICAgICAgICAgICAgICAgICAgICAgICAgICAgICAg ICAgICAgICAgICAgICAgICANCiAgICAgICAgICAgIC AgICAgICAgICAgICAgICAgICAgICAgICAgICAgICAgICAgICAgICAgICAgICAgICAgICAgICAgICAgIC AgICAgICAgICAgICAgICAgICAgICAgICAgICANCiAgICAgICAgICAgICAgICAgICAgICAgICAgICAgIC AgICAgICAgICAgICAgICAgICAgICAgICAgICAgICAg ICAgICAgICAgICAgICAgICAgICAgICAgICAgICAgICAgICAgICANCiAgICAgICAgICAgICAgICAgICAg ICAgICAgICAgICAgICAgICAgICAgICAgICAgICAgICAgICAgICAgICAgICAgICAgICAgICAgICAgICAg ICAgICAgICAgICAgICAgICAgICANCiAgICAgICAgIC AgICAgICAgICAgICAgICAgICAgICAgICAgICAgICAgICAgICAgICAgICAgICAgICAgICAgICAgICAgIC AgICAgICAgICAgICAgICAgICAgICAgICAgICAgICANCiAgICAgICAgICAgICAgICAgICAgICAgICAgIC AgICAgICAgICAgICAgICAgICAgICAgICAgICAgICAg ICAgICAgICAgICAgICAgICAgICAgICAgICAgICAgICAgICAgICAgICANCiAgICAgICAgICAgICAgICAg ICAgICAgICAgICAgICAgICAgICAgICAgICAgICAgICAgICAgICAgICAgICAgICAgICAgICAgICAgICAg ICAgICAgICAgICAgICAgICAgICAgICANCiAgICAgIC AgICAgICAgICAgICAgICAgICAgICAgICAgICAgICAgICAgICAgICAgICAgICAgICAgICAgICAgICAgIC AgICAgICAgICAgICAgICAgICAgICAgICAgICAgICAgICANCiAgICAgICAgICAgICAgICAgICAgICAgIC AgICAgICAgICAgICAgICAgICAgICAgICAgICAgICAg ICAgICAgICAgICAgICAgICAgICAgICAgICAgICAgICAgICAgICAgICAgICANCjw/gVGhT5xcaQQbyxX6 A0ksIo3ZZy2VOP9ya6QkMKCtFJjalxTmJieFPaWaHOFfGqsFTgn9KWqiYQ1RtSDtA8UlM1QwNGaoBU8A PRVpAMCtiYKxGAWdLBXrJxW0AMKlJPjfCQ6JuFYyKT nlDITuVDPnPuAkJRMhKDPwJAMhJFYjIGWXNMTuAHVzDjRtPBekGR3Dg3AwgOR2MCn+Ch0BKA7we4ChAZ c7YJFyZW2ctu3AMTfZNcNbF3SslqG9HYE3HYErTf7UAXLjPHFivCS3PREsMPSEAiCqL3JxwW85CXESJc 4+OHmbkoJfAxbJUiK4CIHvl9UjNQr3SW2LORKzHIq1 hWTtZODCWAM0UPqqBROHAXXsJHKpKH2LYYW8SGSbFlO9VbMgIyXuBVh1GMYzBV5pLQsmBS3HEPA2ISms XXXaTUUsZ1qHSvKgWPgmEVEagMebPU8YYqVjV2XgakJzdYV8UNXyMOEEKq8+DHvdlyYgNuiXReG5CKTo e9JmGNi0HM1HQBQwQCrrFO8VMWAceE4hFRotZB4BJm M9SrUfSHKJPlMeL06cyXEvOIi4Z5OwQdXyPNImDxuuYATnYOieHjUqVHGsFuRjZSdfPU0+ID4+DQogIC 6AEAbwpnEvAUHwTw4ZKUXyXDUfLA4bUANbEDIkB0O7cUrnVZQBOtBvB1msmrruYY2pZRMkK212wVkqpx IsIKZ6AOBhEt5GMKRqLCY1ZAVeiHClANKqHRPIOOzj EE0DfMFtAIX1aM4oAXdnJHQgGJWhD2sAFxTdzXuxLA70wFcpmpCxvQEeHOd+Mn5HLQ1ed2LoNIz7emTj IUhsKBB0UYolYSSpNVRzEVSzQYA9HJC1EIQXQaSuUKVwXLXwKJyeZCUmXAIxhf8SFTSaDNS6LFV6RuFn JKZpBAJaHSgjAUDcXDF5ALF1TWJfFKZbIR7XUbIiYT AyEGUoWPwjHDWoMRKjrk2ETZBjYCSqTgj2XEXnOKXaTWZrUItrKMOfXOBfKRH4TFZhSZOwKC2RJbIuJU QrKIYaIwUyCFTnJSZjgn8NZXLiOJVeRDJoCLCaOVFnPEUsZBodCGGeJSJ9BSK6YSAmUFFhLU9DIvHdXM EeZXhvQQEmEJJlBOHmtf8QRPYdDXHuQEHsShCkIBVt ZFPqRNvfFGSxMQDjEQU2PSCdZXThPS1DNbSoPDVdLUMmOpIzXYWiVGEakf0XIZVlUTQdVpHgFzZgPPBn IZEnZWdpVJHoXRTrVvk2RRXrQXBcIP2QNxVvPMQgBAR4HXoeARVbARIzxd6HZQYtCANsWpa3TcErUQMo HXNhLEqpVRMrARC0HiT3SXJaUHRzLO8TWsPuURIuFG Y3TXHgGOEySTLrph4CLDXfNBMkFCNeXcXrRTNdWSRfSMwnTRRgHXD6RQz6GBByAMTcZX9OXhEhPCAjPo x6QUQvMUSnGQCele8ZSBZqUGViPIUqAEFlKVEdURGiMTydQQXcSXP1AaBeZJByTRIjUB9AIsHbNPOaLx mwXNOrKMTiAAZevo8IZURiXZCbTXAhHYZiBTSnFUZa YHzfFUHwSAP1AONsTTPpTPJdQC9MKsIuXFZmDoy6DZavBBHqEOStel4YNOUjUNFrXCY7KBZzHQRoCKUv RKpqTRIqWNWpOJT2ZYYzAMYsQA2MFxCbBDMpSaS7PVuvPWXpVSJzbh7BRHLwBQL9ISGrPBFyOGKzVOFi XNlsUXWjPJDwSZWfWZPoETWsEQ8HUaWtYCHnIUZyGh VeRYQzRUYvig8ITDXdMTW5MNuzVpOmPKWsIZKdSVthEZQxMVFeBWe6UXQrKURzDO5GArHtHZMlBOQ7Ri ckSGEuTMNrjg5YWSNwAVX6NhCmPdPeTMPjRYImMQkhELXoEJUdPpNdQWZlPYHnZW9MBcGiTHEvHBQjCF KgFVOzOWQpyu8ZNQAzNTX5QPE2WQOdFSIbZINxWBkd HTWgQBB1EdH1ZNGmNIAjLJ1GUtXjMOQlMYXdFRWcPWTuPZZlzk8QSODiQMV5HrF8VLQrFPLaNCFeERaw JPPvJFJ9LnMiMWUoFCQlLN6YVcQxYUFbSLF4WvLpZSKdDGEuvd2EnPYnkWfgsi4OOTnXXa3BiVieMYU5 GVdpDa9wnKY8EeGfKAIDVn8GurZhFUKfZEBZSEhmBY OqCFAnXYFzGRQzXAM3SsAxM2CnFWNmOPo2MgK4IJL0ItLdCxA7FTN1XhG2LVR5FqH1RxXxNkEpNXAqXL ioNDWqXTH3V3H+VL0lGRn+Hx2Gf2XlgyL0ztExWWv8VkPnIT7MKYIBN0QYTo== ID Date Data Source [id number] 07/08/2021 06:08:00 PM EST Name Value Range Interpretation Code Description Data Suzanne rce(s) Supporting Document(s) Lactic Acid 1.6 mMol/L 0.4-2.0 Normal (applies to non-numeric resu lts) The above 1 analytes were performed by [facility] [id number] [place] [address]#: [id number],[place] [address] ID Date Data Source [id number] 07/08/2021 04:53:01 PM EST Name Value Range Interpretation Code Description Data Suzanne rce(s) Supporting Document(s) ED Provider Notes [facility] IEXMCv1cNhGYHaCf38/YAMdgRBHzl6KrPMkuYUp4SNnzPIAyX0GqBJX7kG8gFDY8YBwGInNqHmInPHK9 lbm [file] ICAgICAgICAgICAgICAgICAgICAgICAgICAgICAgICAgICAgICAgICAgICAgICAgICAgICAgICAgICAg ICAgICAgICAgICAgICAgICAgICAgDQogICAgICAgICAgICAgICAgICAgICAgICAgICAgICAgICAgICAg ICAgICAgICAgICAgICAgICAgICAgICAgICAgICAgIC AgICAgICAgICAgICAgICAgICAgICAgICAgICAgICAgDQogICAgICAgICAgICAgICAgICAgICAgICAgIC AgICAgICAgICAgICAgICAgICAgICAgICAgICAgICAgICAgICAgICAgICAgICAgICAgICAgICAgICAgIC AgICAgICAgICAgICAgDQogICAgICAgICAgICAgICAg ICAgICAgICAgICAgICAgICAgICAgICAgICAgICAgICAgICAgICAgICAgICAgICAgICAgICAgICAgICAg ICAgICAgICAgICAgICAgICAgICAgICAgDQogICAgICAgICAgICAgICAgICAgICAgICAgICAgICAgICAg ICAgICAgICAgICAgICAgICAgICAgICAgICAgICAgIC AgICAgICAgICAgICAgICAgICAgICAgICAgICAgICAgICAgDQogICAgICAgICAgICAgICAgICAgICAgIC AgICAgICAgICAgICAgICAgICAgICAgICAgICAgICAgICAgICAgICAgICAgICAgICAgICAgICAgICAgIC AgICAgICAgICAgICAgICAgDQogICAgICAgICAgICAg ICAgICAgICAgICAgICAgICAgICAgICAgICAgICAgICAgICAgICAgICAgICAgICAgICAgICAgICAgICAg ICAgICAgICAgICAgICAgICAgICAgICAgICAgDQogICAgICAgICAgICAgICAgICAgICAgICAgICAgICAg ICAgICAgICAgICAgICAgICAgICAgICAgICAgICAgIC AgICAgICAgICAgICAgICAgICAgICAgICAgICAgICAgICAgICAgDQogICAgICAgICAgICAgICAgICAgIC AgICAgICAgICAgICAgICAgICAgICAgICAgICAgICAgICAgICAgICAgICAgICAgICAgICAgICAgICAgIC AgICAgICAgICAgICAgICAgICAgDQogICAgICAgICAg ICAgICAgICAgICAgICAgICAgICAgICAgICAgICAgICAgICAgICAgICAgICAgICAgICAgICAgICAgICAg KDIaQGPtHEXvLSRrHNCdZSPcRQNtGQIfGKKdEYHsUZx2W8axRVMzFNHiGE3tRPs4Pt2+DQoNCmVuZHN0 lgLvuN8HOL3tc0HzHTayDJCvn5OnOEk6OJ4LGNFbKF ljMA0LWMiwrr2GCPUtAKUbiQWOf8ylTyWmYZI6CWIcKccrDU1ODPWbD4ezbdOhTEAoBXOFQKgdIECBQS kaNVTFBNZrIANxCxRiOmWiIJMwGH2EFUXqO304lcVoUG3VWc3YVsEqIA3yiw8TNaUrELQyKssBOvc1EF fbXA8EpWPnrDIzVJSmCHBHQmPbK9axp9UqMrYrRPHV MAguWE8Ko5ImqZZlRNm+Gc4VWQ7no1FdMJcoFRPgCW9kam0PRFvXNgVwM2HvrXegVQRMELEfi2SsJBBc OL3wlQUfSOA8ACgylNecOX7lC1EhqWJpnbhaJZEsPEMtFMHvAStfHhLjJKEtSpudVFFARUbHWvVfQ7De f0UtPgL0UAQtNqUyVJfbWMNcLvY6XD74fFeaCY9INJ EcBMXiHJ77DAZpBJKiEt3HKi6EAzFmOB5kba4RJfUaLKAoItpSCnq3LXteGO6SqYXjW7CahLZab4nBZx ImU2QXCIJiRCCrBb7PYLIfMoNdGDZzDHoeMD8vPZZgGGKVpLayjbT4HQ1QSN6xoyWqRO6FVqVzCc1lNe 2MFhRrS5CyO3XjUEKgMJTPKFvcPY0DLHrmCA1rXN6B w2ZDyTAujM2zuu5OVYNfHHBvEnahrn2WDpzwT4M1cIigFMFtPvFoYBTCSVkmZD4EHDFkZON5RVInFvDk JGIKUiHaC24eHP4HJ6Cwc01rLoW3BJNgTvTbDUqhNP71aTfxhbSzpSEnoWgxRI9UAi9+DQplbmRvYmoN TkklKHNSEzLlXyHXFhObMKFjXFXvJYAtHvX6SuNyJx 8CNWOeLHWmIYClYgFpEJEdOCEcLLnjZCTaLUVrPXD5IGXuATIcDE5NHhQcLRFmAzP1QMcdJZBiIMHxqy 1MSSBjOCSsXDU6TrRxJZLbJHFvICgfDDPoNOQqRKp2PKMkWBGaIP3OKuKxBIGaATQzSPLuHYVoSAYqyf 7NIPHlGUEtUJP7KzUnKSJhPGGlUQmkJQSaKUT8KIzj IVCuSQYsWC8YJiMhBSAiNQz2NUOvZNHvUZJgok2BMGAdVDPbVBQzMEXvQTKdALLgKJacKJEkZIWxKnJ9 ZLQrJTXwHA2KGhVwPHQpICE2SeCcOTHxUHNvnp5ITUMkVHXzBoBdYUJeMZGmYIGqVUbcXATlXJPhSNP5 AJLzHXHoLX7FAuRvROEwWESlVqNcVDMrZLBeka2MZS AySDNvHsO3IdQqMOUjONRfWKioQBNwQTPjMoB2JLZdOSVaSC9BItHgFTWwIVN1HIQxMGZoKJJiru5VRI LjCWDaWZiiPrEvAUAsXGTePHdrSKBcXHS3EIk9CVHcIPMaKG1GAnGuABHySMRzMQYdTNZqHNXwnb1MLB JiRGZmHpI8FBDtIHQuREPrRMevYEXmOMZ9FSOaELBd YNCzFG2VHsPeADPqNYb3JXxiDNKdHTJkpc2IWFSfRRSdMsHqZGEyEBIaOIWvRIcrLONmXFX7Smc1IBJr IUCbVU8FEyYeAWEuQrFcVzIiZECgJKJvat9TQCZaCVYoVMA6ZUBnQZSuGFJaWUkmXNEnCVGlGtKcNQBt SFVbRT2KAnNcSHNbMlN3IexeUPOlOETvob5DZCAeXC JjVUC4MBSvTHKiAMDrKJvuCJUsBMEeVZQ5RMBiQGVvOW4AKoHzPAQjPlO0KASsCFPzOLAjnh7VQFSgOG OxGlZ3GnLiDKLxLYEyAGhqUXGrWGAuRaJ6EYIjXKQoJI8AYjFsXVjgLTIEJer1MRnnD4d9EXYpGv0AV0 Jfu7ZfBePuOQAEDOmaMM8xisToWBJpIz8ZH3eHTbe3 FCXnOzRmKGVxYhWoGDC2OgE6DGrrKPcrFYIsSGhoQg3bCUPiRJNuRPFdJYVyYcL0VJRlMfZqOHHoUQOj GNG7TGR1CzVwWA1RMb9NKaW2HPQ2lWDmRi2NEoR6RBTRYhXnRC8YLUk= ID Date Data Source [id number] 07/08/2021 04:46:00 PM EST Name Value Range Interpretation Code Description Data Suzanne rce(s) Supporting Document(s) Troponin, iSTAT 0.00 ng/ml 0.00-0.10 Normal (applies to non-numeric results) Reference Values:Negative:<0.07 ng/mLInc reasing Risk of ACS:0.08-0.10 ng/mLPositive:>0.10 ng/mLConditions other than IL that cause increased troponin I values includebut are not limited to chest trauma, cardiac and non-cardiac surgery,congestive heart failure, drug cardio-toxicity, inflammatory diseasessuch as myocarditis, pulmonary embolism, inflitrative diseases, andacute neurological disease.An AMI diagnositc cutoff within a range of 0.6-1.5 ng/mL is consistentwith the WHO criteria for AMI.Results obtained using [employer] iSTAT Technology.The above 1 analytes were performed by [address],[facility]#: [id number],[place] [address] ID Date Data Source [id number] 07/08/2021 06:15:00 PM EST Name Value Range Interpretation Code Description Data Suzanne rce(s) Supporting Document(s) Sedimentation Rate 62 mm/hr 0-20 Above high normal The above 1 analytes were performed by [facility] [id number] [facility], ,[place] [address] ID Date Data Source [id number] 07/08/2021 06:31:00 PM EST Name Value Range Interpretation Code Description Data Suzanne rce(s) Supporting Document(s) Procalcitonin 0.21 ng/ml 0.00-0.50 Normal (applies to non-numeric re sults) PCT Concentration: <= 0.5 ng/mLInterpre tation: Systemic infection (sepsis) is not likely. Local bacterial infection is possible.Risk or options for further action:Low risk for progression to severe systemic infection (severe sepsis/septic shock).Caution: PCT levels below 0.5 ng/mL do not exclude an infection, because localized infections (without systemicsigns) may be associated with such low levels.PCT Concentration: 0.5-2 ng/mLInterpretation: Systemic infection (sepsis) is possible, butother condictions are know to elevate PCT as well. Risk or options for further action:Moderate risk for p rogression to severe systemic infection(severe sepsis/septic shock). The patient should be closelymonitored both clinically and by re-assessing PCT within6-24 hours. PCT Concentration: >2 ng/mLInterpretation: Systemic infection (sepsis) is likely, unless other causes are known.Risk or options for further action: High risk for progression to severe systemic infection(severe sepsis/septic shock).PCT Concentration >= 10 ng/mLInterpretation: Important systemic inflammatory response, almost exclusively due to severe bacterial sepsis or septic shock.Risk or options for further action:High likelihood of sepsis or septic shockThe above 1 analytes were performed by [facility] [id number] [facility], ,[place] [address] ID Date Data Source [id number] 07/08/2021 04:12:00 PM EST Name Value Range Interpretation Code Description Data Suzanne rce(s) Supporting Document(s) NTproBNP 44 pg/ml 0-125 Normal (applies to non-numeric resul ts) Acute CHF unlikely if NTproBNP:<125 pg/m L for age <75 years<450 pg/mL for age > or = 75 yearsCHF likely if NTproBNP:>450 pg/mL for age <50 years>900 pg/mL for age 50-75 years>1800 pg/mL for age >75 yearsCHF very likely if NTproBNP:>47222 (regardless of age)The PRIDE study recommends the above cut-off values. It also recognizesa change in a patient's "dry" value of >25% as being an acute episode of HF. Therefore, a return to their"dry" level at a 25% decrease is an indication of a successful intervention.The above 1 analytes were performed by [facility] [id number] [place] [address],[facility] [id number],[place] [address] ID Date Data Source [id number] 07/08/2021 04:10:00 PM EST Name Value Range Interpretation Code Description Data [facility] rce(s) Supporting Document(s) AST 18 IU/L 15-37 Normal (applies to non-numeric resul ts) Sulfasalazine and sulfapyridine have the potential to falsely depressAspartate Aminotransferase results. Baseline values before medication administration are recommended. ALT 27 IU/L 16-61 Normal (applies to non-numeric resul ts) Sulfasalazine and sulfapyridine have the potential to falsely depressAlanine Aminotransferase results. Baseline values before medication administration are recommended. Alkaline Phosphatase 75 mIU/ml 50-136 Normal (applies to non-num jack results) Total Bilirubin 1.10 mg/dl 0.20-1.00 Above high normal [facility] Blood Urea Nitrogen 26 mg/dl 7-18 Above high normal Creatinine 2.21 mg/dl 0.67-1.17 Above high normal [facility] N-Acetylcysteine (NAC) and Metamizole rm ve the potential to falselydepress Creatinine results. Baseline values before medication adminstration are recommended. Patients undergoing treatment with phenindione will have falselydepressed results. Patients on phenindione therapy should be tested with an alternativeCREA method.Toxic levels of acetaminophen may lead to falsely depressed results forpatient samples. Glomerular Filtration Rate 31.00 mL/min/1.73m2 GFR Reference Ranges:Normal Function or Mild Renal Disease,if clinically at risk:>or= 60Moderately decreased:30 - 59Severely decreased:15 - 29Renal Failure:<15 Please note that the MDRD equation requires an additional adjustment forAfrican-Americans (multiply the GFR result by 1.210).Glomarular Filtration Rate (GFR) is estimated based on the MDRDequation, which assumes a steady state for creatinine ([place] Int Med 139/2 137-149, 2003), as recommended by the NationalKidney Disease Education Program in conjunction with the National Institutes of Health and the National KidneyFoundation. The [place] method used in calculating this result is traceable to IDMS standards. Glucose 127 mg/dl 70-110 Above high normal [facility] Sulfasalazine has the potential to false ly depress Glucose results. Sulfapyridine has the potential to falsely elevate Glucose results. Baseline values before medication administration are recommended. Calcium 9.2 mg/dl 8.5-10.1 Normal (applies to non-numeric resul ts) Total Protein 7.9 g/dl 6.4-8.2 Normal (applies to non-numeric re sults) Albumin 3.3 g/dl 3.4-5.0 Below low normal Sodium 136 mEq/L 136-145 Normal (applies to non-numeric resul ts) Potassium 4.0 mEq/L 3.5-5.1 Normal (applies to non-numeric resul ts) Chloride 102.0 mEq/L 98.0-107.0 Normal (applies to non-numeric resu lts) Carbon Dioxide 26.5 mMol/L 21.0-32.0 Normal (applies to non-numeric results) Anion Gap 11.5 7.0-15.0 Normal (applies to non-numeric resul ts) The above 16 analytes were performed by [facility] [id number] [place] [address], ,[place] [address] ID Date Data Source [id number] 07/08/2021 04:10:00 PM EST Name Value Range Interpretation Code Description Data Suzanne rce(s) Supporting Document(s) Magnesium 2.2 mg/dl 1.6-2.6 Normal (applies to non-numeric resul ts) The above 1 analytes [facility] [id number] [place] [address], ,[place] [address] ID Date Data Source [id number] 07/08/2021 03:57:00 PM EST Name Value Range Interpretation Code Description Data Suzanne rce(s) Supporting Document(s) PT, No Coag Tx/Coag Tx Unk 13.3 Seconds 10.2-12.9 Above high normal PT referenence range reflects values for patients not on anticoagulanttherapy.Discrepant results may occur due to anticoagulant effects such ascoumadin, direct thrombin inhibitors; argatroban (Acova), b ivalirudin(Angiomax) or dabigatran (Pradaxa) or direct factor Xa inhibitors;rivaroxaban (Xarelto), apixaban (Eliquis) and edoxaban (Savaysa). INR (No Coag Tx/Coag Tx Unk) 1.2 0.9-1.1 Above high normal Suggested therapeutic INR ranges for ora l anticoagulant therapy: Indication:INRPrevention and treatment of DVT and PE2.0 - 3.0Prevention of systemic embolism with atrial fib., acute IL and 2.0 -3.0 tissue prosthetic heart valves.Prevention of systemic embolism in patients with mechanical heart2.5 -3.5 valves.NOTE: The INR is only valid for patients on stable oral anticoagulanttherapy. The above 2 analytes were performed by [facility] [address], ,[place] [address] ID Date Data Source [id number] 07/08/2021 03:54:00 PM EST Name Value Range Interpretation Code Description Data Suzanne rce(s) Supporting Document(s) WBC 19.59 x1000/ul 4.80-10.00 Above high normal RBC 5.09 x1Mil/ul 4.70-6.10 Normal (applies to non-numeric re sults) Hemoglobin 14.9 g/dl 14.0-18.0 Normal (applies to non-numeric resul ts) Hematocrit 47.1 % 42.0-52.0 Normal (applies to non-numeric resul ts) MCV 92.5 fL 80.0-94.0 Normal (applies to non-numeric resul ts) MCH 29.3 pg 27.0-31.0 Normal (applies to non-numeric resul ts) MCHC 31.6 g/dl 32.2-37.0 Below low normal RDW 13.9 % 11.5-14.5 Normal (applies to non-numeric resul ts) Platelet Count 361 x1000/ul 130-400 Normal (applies to non-numeric results) MPV 10.1 fL 9.4-12.4 Normal (applies to non-numeric resul ts) Neutrophils 76.6 % 40.0-74.0 Above high normal [facility] Lymphocytes 13.0 % 19.0-48.[address] [facility] Monocytes 8.0 % 3.4-9.0 Normal (applies to non-numeric resul ts) Eosinophils 0.7 % 0.0-7.0 Normal (applies to non-numeric resu lts) Basophils 0.6 % 0.0-2.0 Normal (applies to non-numeric resul ts) Immature Granulocytes 1.1 % 0.0-0.5 Above high normal Nucleated RBCs 0.00 % 0.00-0.20 Normal (applies to non-numeric r esults) Abs. Neutrophils 15.01 x1000/ul 1.92-8.31 Above high normal Abs. Lymphocyte 2.55 x1000/ul 1.20-3.70 Normal (applies to non-n umeric results) Abs. Monocytes 1.57 x1000/ul 0.14-0.97 Above high normal Abs. Eosinophils 0.14 x1000/ul 0.00-0.76 Normal (applie s to non-numeric results) Abs. Basophils 0.11 x1000/ul 0.00-0.22 Normal (applies to non-n umeric results) Abs. Immature Gran. 0.21 x1000/ul 0.00-0.02 Above high normal Abs. Nucleated RBCs 0.00 x1000/ul 0.00-0.02 Normal (appl ies to non-numeric results) The above 24 analytes were performed by [facility] [id number] [place] [address],[facility]#: [id number],[place] [address] ID Date Data Source [id number] 07/08/2021 01:35:33 PM EST Patient: ORLANDO BOLANOS : 1965 [facility] Provider: GALINA HAMILTON:CT HEAD WO CONTRASTCLINICAL HISTORY:Episode of unresponsiveness at work. Vaginal bleeding. CPR was performed for 2minutes with return of spontaneous breathing. Patient gives history oflightheadedness, diaphoresis and leg down to the ground.COMPARISON STUDY:NoneTECHNIQUE: Multiple axial scans were performed through the head without intravenousadministration of contrast medium. Sagittal and coronal reformats.CT dose reduction protocol was used with automatic exposure control anditerative reconstruction.FINDINGS: CALVARIUM: Unremarkable. No fracture demonstrated.CEREBRAL HEMISPHERES: No evidence of intracranial mass or hemorrhage. No masseffect or shift of the midline. No abnormal attenuation is identified.No evidence of dense MCA sign. No evidence of diffuse cerebral edemaEXTRA-AXIAL SPACE: No evidence of h emorrhage or acute abnormality.VENTRICULAR SYSTEM: No hydrocephalus. Symmetric ventricles. POSTERIOR FOSSA: No evidence of mass, hemorrhage or infarction.SKULL-BASE: No evidence of osteolytic or osteoblastic lesion.ORBITS: Unremarkable.PARANASAL SINUSES: Left maxillary sinus mucosal thickening.IMPRESSION: No evidence of acute intracranial abnormality.Mild left maxillary sinus mucosal disease.IF THE PATIENT HAS SUSTAINED ACUTE STROKE OR IF THERE ARE UNEXPLAINED NEUROSIGNS OR SYMPTOMS FURTHER ASSESSMENT MAY BE WARRANTED. A FOLLOWUP CT SCAN IN24-48 HOURS OR FOLLOWUP MRI WITH DIFFUSION TECHNIQUE COULD BE CONSIDERED.This report was generated, all or in part, using voice recognition software. ?Areasonable effort was made to review entries and ensure accuracy. If an erroris suspected of clinical significance please notify the radiology Departmentfile room.Electronically Signed by Patricia Jin MD 07/08/2021 1:35 PM Name Value Range Interpretation Code Description Data Suzanne rce(s) Supporting Document(s) ID Date Data Source [id number] 07/08/2021 01:20:00 PM EST [facility] Name Value Range Interpretation Code Description Data Suzanne rce(s) Supporting Document(s) SARS coronavirus 2 Ag:PrThr:Pt:Ord:IA.rapid NEGATIVE [facility] This lab was ordered by [facility] and reported by [facility]. ID Date Data Source [id number] 07/08/2021 01:33:00 PM EST Name Value Range Interpretation Code Description Data Suzanne rce(s) Supporting Document(s) POC SARS-CoV-2 NEGATIVE NEGATIVE Normal (applies to non-numeric r esults) Performed on the Gordon ID NOW analyzer by rapid molecular methodology. First Test No [facility] Employed in healthcare No Symptomatic as defined by CDC No Hospitalized No [facility] Resident in a congregate care setting No No Intensive Care No [facility] The above 8 analytes [facility] [id number] [place] [address],[id number],[place] [address] ID Date Data Source [id number] 07/08/2021 12:56:15 PM [facility] Patient: ORLANDO BOLANOS : 1965 [facility] Provider: GALINA ALONZOINICAL HISTORY: Chest pain. Dizziness. Syncope. Hypertension.TECHNIQUE: An AP portable view of the chest was obtained.COMPARISON: No relevant prior studies are available for comparison.FINDINGS: Lines/tubes: None.Lungs: The lungs are clear.Heart and mediastinum: The heart and mediastinal contours are unremarkable.Pleura: No pleural effusion or pneumothorax seen.Bones: The visualized bones are unremarkable.Abdomen: Visualized portions of the upper abdomen are unremarkable.IMPRESSION: No acute disease.Electronically Signed by [place] MD 07/08/2021 12:56 PM Name Value Range Interpretation Code Description Data Suzanne rce(s) Supporting Document(s) ID Date Data Source [id number] 07/08/2021 12:44:49 PM [facility] Name Value Range Interpretation Code Description Data Suzanne rce(s) Supporting Document(s) ED Triage Notes [id number] lbm [file] [id number] ID Date Data Source [id number] 07/08/2021 01:07:00 PM EST Name Value Range Interpretation Code Description Data Suzanne rce(s) Supporting Document(s) Troponin, iSTAT 0.00 ng/ml 0.00-0.10 Normal (applies to non-numeric results) Reference Values:Negative:<0.07 ng/mLInc reasing Risk of ACS:0.08-0.10 ng/mLPositive:>0.10 ng/mLConditions other than IL that cause increased troponin I values includebut are not limited to chest trauma, cardiac and non-cardiac surgery,congestive heart failure, drug cardio-toxicity, inflammatory diseasessuch as myocarditis, pulmonary embolism, inflitrative diseases, andacute neurological disease.An AMI diagnositc cutoff within a range of 0.6-1.5 ng/mL is consistentwith the WHO criteria for AMI.Results obtained using Gordon iSTAT Technology.The above 1 analytes were performed by [facility] [id number] [place] [address],[facility]#: [id number],[place] [address] ID Date Data Source [id number] 05/28/2021 11:06:00 AM EDT [facility] ([facility]) Name Value Range Interpretation Code Description Data Suzanne rce(s) Supporting Document(s) Triglyceride [Mass/volume] in Serum or Plasma 210 mg/dL 30-150 [facility] ([facility]) Cholesterol [Mass/volume] in Serum or Plasma 183 mg/dL 131-200 [facility] ([facility]) Cholesterol in LDL [Mass/volume] in Serum or Plasma by calcu lation 108 CALC 50-159 [facility] ([facility]) Cholesterol in HDL [Mass/volume] in Serum or Plasma 33 mg/dL 35-60 [facility] ([facility]) ID Date Data Source [id number] 05/28/2021 11:06:00 AM EDT [facility] ([facility]) Name Value Range Interpretation Code Description Data Suzanne rce(s) Supporting Document(s) Glucose [Mass/volume] in Serum or Plasma 93 mg/dL 74-99 [facility] ([facility]) 100-125 mg/dL PRE-DIABETES/FASTING >126 mg/dL DIABETES/FASTING Urea nitrogen [Mass/volume] in Serum or Plasma 26 mg/dL 7-18 [facility] ([facility]) Creatinine 1.3 mg/dL 0.6-1.3 [facility] ([facility]) Chloride [Moles/volume] in Serum or Plasma 103 meq/L 98-107 [facility] ([facility]) Sodium [Moles/volume] in Serum or Plasma 139 meq/L 136-145 [facility] ([facility]) Potassium [Moles/volume] in Serum or Plasma 4.5 meq/L 3.5-5.1 [facility] ([facility]) Carbon dioxide, total [Moles/volume] in Serum or Plasma 31 meq/L 21 -32 [facility] ([facility]) Calcium [Mass/volume] in Serum or Plasma 9.1 mg/dL 8.5-10.1 [facility] ([facility]) Aspartate aminotransferase [Enzymatic activity/volume] in Serum or Plasma 18 U/L 15-37 [facility] ([facility] ) Alkaline phosphatase isoenzyme [Units/volume] in Serum or Pl asma 74 mg/dL 46-116 [facility] ([facility]) Total Bilirubin 0.7 mg/dL 0.2-1.0 [facility] ([facility]) Alanine aminotransferase [Enzymatic activity/volume] in Seru m or Plasma 31 U/L 12-78 [facility] ([facility]) Albumin [Mass/volume] in Serum or Plasma 3.5 g/dL 3.4-5.0 [facility] A/G Ratio 0.83 CALC 1.00-1.90 [facility] ([facility]) Proteinase 3 Ab [Units/volume] in Serum 7.7 g/dL 6.4-8.2 [facility] Glomerular filtration rate/1.73 sq M pre dicted among non-blacks [Volume Rate/Area] in Serum or Plasma by Creatinine-based formula (MDRD) 57 mL/min [facility] Glomerular filtration rate/1.73 sq M pre dicted among blacks [Volume Rate/Area] in Serum or Plasma by Creatinine-based formula (MDRD) Laboratory test result [facility] ([facility]) <content>CHRONIC KIDNEY DISEASE STAGING PER NKF</content>
<content></content>
<content>STAGE I & II GFR >= 60 NORMAL TO MILDLY DECREASED</content>
<content>STAGE III GFR 30-59 MODERATELY DECREASED</content>
<content>STAGE IV GFR 15-29 SEVERELY DECREASED</content>
<content>STAGE V GFR <15 VERY LITTLE GFR LEFT</content>
<content>ESRD GFR <15 ON ELEMENTARY EDUCATION TEACHER</content>
<content></content> ID Date Data Source [id number] 05/28/2021 11:06:00 AM EDT [facility] Name Value Range Interpretation Code Description Data Suzanne rce(s) Supporting Document(s) Leukocytes [#/volume] in Blood by Automated count 11.0 x10*3/UL 4.1-1 0.9 [facility] Erythrocytes [#/volume] in Blood by Automated count 5.56 x10*6/UL 4.2 0-6.30 [facility]) Hemoglobin [Mass/volume] in Blood 16.4 g/dL 12.0-18.0 [facility] ([facility]) MCV 88.9 fL 80.0-97.0 [facility] ([facility]) Hematocrit [Volume Fraction] of Blood by Automated count 49.5 % 3 7.0-51.0 [facility] ([facility]) MCH 29.4 pg 26.0-32.0 [facility] ([facility]) Erythrocyte distribution width [Ratio] by Automated count 13.6 % 11.6-13.7 [facility] ([facility]) MCHC 33.1 g/dL 31.0-38.0 [facility] ([facility]) Platelets [#/volume] in Blood by Automated count 385 x10*3/UL 140-440 [facility] ([facility]) MPV 8.5 FL 7.8-11.0 [facility] ([facility]) Mid % 5.7 % 1.7-9.3 [facility] ([facility]) Neut % 65.1 % 37.0-92.0 [facility] ([facility]) Lymph % 29.2 % 10.0-58.5 [facility] ([facility]) Lymph # 3.2 x10*3/UL 0.6-4.1 [facility] ([facility]) Mid # 0.6 x10*3/UL 0.1-0.6 [facility] ([facility] Neut # 7.2 x10*3/UL 2.0-7.8 [facility] ([facility]) ID Date Data Source [id number] 11/25/2020 08:18:00 AM EDT [facility] Name Value Range Interpretation Code Description Data Suzanne rce(s) Supporting Document(s) Prostate specific Ag [Mass/volume] in Serum or Plasma 0.66 ng/mL [facility] ([facility]) This assay was performed on the Siemens Dimension EXL using the B- Galactosidase/CPRG methodology and should not be compared interchangeably with other methods. The PSA should not be used alone as a screening test for the presence or absence of malignant disease. ID Date Data Source [id number] 11/25/2020 08:18:00 AM [facility] Name Value Range Interpretation Code Description Data Suzanne rce(s) Supporting Document(s) Cholesterol [Mass/volume] in Serum or Plasma 193 mg/dL 131-200 [facility] ([facility]) Cholesterol in LDL [Mass/volume] in Serum or Plasma by calcu lation 114 CALC 50-159 [facility] ([facility]) Triglyceride [Mass/volume] in Serum or Plasma 242 mg/dL 30-150 [facility] ([facility]) Cholesterol in HDL [Mass/volume] in Serum or Plasma 31 mg/dL 35-60 [facility] ([facility]) ID Date Data Source [id number] 11/25/2020 08:18:00 AM EDT [facility] ([facility]) Name Value Range Interpretation Code Description Data Suzanne rce(s) Supporting Document(s) Urea nitrogen [Mass/volume] in Serum or Plasma 24 mg/dL 7-18 [facility] ([facility]) Glucose [Mass/volume] in Serum or Plasma 110 mg/dL 74-99 [facility] ([facility]) 100-125 mg/dL PRE-DIABETES/FASTING >126 mg/dL DIABETES/FASTING Creatinine 1.2 mg/dL 0.6-1.3 [facility] ([facility]) Sodium [Moles/volume] in Serum or Plasma 139 meq/L 136-145 [facility] ([facility]) Potassium [Moles/volume] in Serum or Plasma 4.1 meq/L 3.5-5.1 [facility] ([facility]) Carbon dioxide, total [Moles/volume] in Serum or Plasma 27 meq/L 21 -32 [facility] ([facility]) Chloride [Moles/volume] in Serum or Plasma 102 meq/L 98-107 [facility] ([facility]) Total Bilirubin 0.5 mg/dL 0.2-1.0 [facility] ([facility]) Alkaline phosphatase isoenzyme [Units/volume] in Serum or Pl asma 85 mg/dL 46-116 [facility] ([facility]) Calcium [Mass/volume] in Serum or Plasma 9.0 mg/dL 8.5-10.1 [facility] ([facility]) Albumin [Mass/volume] in Serum or Plasma 3.8 g/dL 3.4-5.0 [facility] ([facility]) Aspartate aminotransferase [Enzymatic activity/volume] in Serum or Plasma 18 U/L 15-37 [facility] ([facility] ) Alanine aminotransferase [Enzymatic activity/volume] in Seru m or Plasma 32 U/L 12-78 [facility] ([facility]) Proteinase 3 Ab [Units/volume] in Serum 8.0 g/dL 6.4-8.2 [facility] ([facility]) A/G Ratio 0.90 CALC 1.00-1.90 [facility] Glomerular filtration rate/1.73 sq M pre dicted among non-blacks [Volume Rate/Area] in Serum or Plasma by Creatinine-based formula (MDRD) Laboratory test result [facility] ([facility] ) Glomerular filtration rate/1.73 sq M pre dicted among blacks [Volume Rate/Area] in Serum or Plasma by Creatinine-based formula (MDRD) Laboratory test result [facility] ([facility]) <content>CHRONIC KIDNEY DISEASE STAGING PER NKF</content>
<content></content>
<content>STAGE I & II GFR >= 60 NORMAL TO MILDLY DECREASED</content>
<content>STAGE III GFR 30-59 MODERATELY DECREASED</content>
<content>STAGE IV GFR 15-29 SEVERELY DECREASED</content>
<content>STAGE V GFR <15 VERY LITTLE GFR LEFT</content>
<content>ESRD GFR <15 ON ELEMENTARY EDUCATION TEACHER</content>
<content></content> ID Date Data Source [id number] 11/25/2020 08:18:00 AM EDT [facility] ([facility]) Name Value Range Interpretation Code Description Data Suzanne rce(s) Supporting Document(s) Leukocytes [#/volume] in Blood by Automated count 10.4 x10*3/UL 4.1-1 0.9 [facility] ([facility]) Erythrocytes [#/volume] in Blood by Automated count 5.37 x10*6/UL 4.2 0-6.30 [facility] ([facility]) Hemoglobin [Mass/volume] in Blood 16.1 g/dL 12.0-18.0 [facility] ([facility]) MCV 89.0 fL 80.0-97.0 [facility] [facility] Hematocrit [Volume Fraction] of Blood by Automated count 47.9 % 3 7.0-51.0 [facility] ([facility]) Erythrocyte distribution width [Ratio] by Automated count 13.6 % 11.6-13.7 [facility] ([facility]) MCH 30.0 pg 26.0-32.0 [facility] [facility] MCHC 33.6 g/dL 31.0-38.0 [facility] [facility] Lymph % 31.6 % 10.0-58.5 [facility] [facility]) Platelets [#/volume] in Blood by Automated count 334 x10*3/UL 140-440 [facility] ([facility]) MPV 9.0 FL 7.8-11.0 [facility] [facility] Neut % 61.6 % 37.0-92.0 [facility] [facility] Mid % 6.8 % 1.7-9.3 [facility] [facility] Lymph # 3.3 x10*3/UL 0.6-4.1 [facility] ([facility]) Mid # 0.7 x10*3/UL 0.1-0.6 [facility] ([facility]) Neut # 6.4 x10*3/UL 2.0-7.8 [facility] ([facility]) ID Date Data Source [id number] 10/21/2020 05:31:00 PM EST [facility] Name Value Range Interpretation Code Description Data Suzanne rce(s) Supporting Document(s) BHD COVID-19 RT-PCR NASAL SWAB Not Detected Not Detected [employer] This test has received Emergency Use Aut horization (EUA). We willcontinue to follow federal and state requirements for COVID-19reporting. This test was developed and its performance characteristicsdetermined by [employer]. It has not been cleared orapproved by the U.S. Food and Drug Administration but has been givenemergency use authorization. Results should be used in conjunctionwith clinical findings and should not form the sole basis for adiagnosis or treatment decision. Methods: SARS-CoV-2 Multiplex RT-PCRAssayA not detected (negative) test result for this test means that SARS-CoV-2 RNA was not present in the specimen above the limit ofdetection. Laboratory test results should always be considered in thecontext of clinical observations and epidemiological data in making afinal diagnosis and patient management decisions. Results will bereported to government agencies as required. ID Date Data Source [id number] 10/19/2020 06:00:00 PM EST [facility] Name Value Range Interpretation Code Description Data Suzanne rce(s) Supporting Document(s) SARS coronavirus 2 RNA [Presence] in Res piratory specimen by MAYDA with probe detection NEGATIVE [facility] This lab was ordered by Cherri Aggarwal and reported by [employer]. ID Date Data Source [id number] 10/19/2020 12:00:00 AM EST [facility] Name Value Range Interpretation Code Description Data Suzanne rce(s) Supporting Document(s) Carestart Rapid COVID Antigen Test Negative [facility] This lab was reported by Cherri [facility]. Procedure Social History Code Duration Value Status Description Data Source(s ) Smoking 07/26/2021 12:00:00 AM EST Patient has never smoked co mpleted Patient has never smoked [facility] ([facility]) Alcohol intake 07/09/2021 12:00:00 AM EST Ex-drinker (finding) comp leted Ex- drinker (finding) Tobacco use and exposure 07/08/2021 12:00:00 AM EST Smokeless to bacco non-user completed Smokeless tobacco non-user Smoking 07/08/2021 12:00:00 AM EST Never smoked tobacco comple warren Never smoked tobacco Vital Signs ID Date Data Source [id number] Name Value Range Interpretation Code Description Data Source(s) Systolic blood pressure 142 mm[Hg] 142 mm[Hg] M [facility] ([facility]) Diastolic blood pressure 100 mm[Hg] 100 mm[Hg] [facility] ([facility]) Heart rate 97 /min 97 /min [facility]) Body height 68 [in_i] 68 [in_i] [facility]) 5'8" Body weight 296.00 [lb_av] 296.00 [lb_av] [facility] T ([facility]) Body mass index (BMI) [Ratio] 45.0 kg/m2 45.0 k g/m2 [facility] ([facility]) Oxygen saturation in Arterial blood by Pulse oximetry 97 % 97 % [facility] ([facility]) Systolic blood pressure 150 mm[Hg] 150 mm[Hg] M [facility] ([facility]) Diastolic blood pressure 92 mm[Hg] 92 mm[Hg] [facility] ([facility]) Heart rate 84 /min 84 /min [facility] ([facility]) Body height 68 [in_i] 68 [in_i] [facility] ([facility]) 5'8" Body weight 299.00 [lb_av] 299.00 [lb_av] [facility] T ([facility]) Body mass index (BMI) [Ratio] 45.5 kg/m2 45.5 k g/m2 [facility] ([facility]) Systolic blood pressure 131 mm[Hg] 131 mm[Hg] [facility] Diastolic blood pressure 84 mm[Hg] 84 mm[Hg] Heart rate 71 /min 71 /min Body temperature 35.89 Jessica 35.89 Jessica [facility] Respiratory rate 16 /min 16 /min [facility] Oxygen saturation in Arterial blood by Pulse oximetry 95 % 95 % Body height 172.7 cm 172.7 cm Body weight 120.203 kg 120.203 kg Body mass index (BMI) [Ratio] 40.29 kg/m2 40.29 kg/m2 [place] body weight 160 [lb_av] 160 [lb_av] [facility] ([facility], ) Body weight 131.998 kg 131.998 kg [facility], ) Systolic blood pressure 150 mm[Hg] 150 mm[Hg] [facility] Diastolic blood pressure 88 mm[Hg] 88 mm[Hg] [facility] Body temperature 98.3 [degF] 98.3 [degF] [facility] ([facility]) Body height 69 [in_i] 69 [in_i] [facility] ([facility]) 5'9" Body weight 291.00 [lb_av] 291.00 [lb_av] [facility] T ([facility]) Body mass index (BMI) [Ratio] 43.0 kg/m2 43.0 k g/m2 [facility] ([facility]) Body surface area Derived from formula 2.42 m2 2.42 m2 [facility] ([facility]) Body mass index (BMI) [Ratio] 44.1 kg/m2 44.1 k g/m2 [facility] ([facility]) Systolic blood pressure 112 mm[Hg] 112 mm[Hg] [facility] ([facility]) Diastolic blood pressure 78 mm[Hg] 78 mm[Hg] [facility] ([facility]) Heart rate 88 /min 88 /min [facility] ([facility]) Body height 68 [in_i] 68 [in_i] [facility] ([facility]) 5'8" Body weight 290.00 [lb_av] 290.00 [lb_av] [facility] T ([facility]) Oxygen saturation in Arterial blood by Pulse oximetry 95 % 95 % [facility] ([facility]) Systolic blood pressure 110 mm[Hg] 110 mm[Hg] [facility] ([facility]) Diastolic blood pressure 68 mm[Hg] 68 mm[Hg] [facility] ([facility]) Body height 68 [in_i] 68 [in_i] [facility] ([facility]) 5'8" Body weight 299.00 [lb_av] 299.00 [lb_av] [facility] T ([facility]) Body mass index (BMI) [Ratio] 45.5 kg/m2 45.5 k g/m2 [facility] ([facility]) Heart rate 66 /min 66 /min [facility] ([facility]) Patient Treatment Plan of Care Planned Activity Planned Date Details Description Data Source (s) 24 HR metoprolol succinate 50 MG Extended Release Oral Tablet 07/11/2021 12:00:00 AM EST Hydrochlorothiazide 25 MG / Lisinopril 20 MG Oral Tabl et 11/25/2020 12:00:00 AM EDT
[2021-07-30] MEDS ORDERED: LR 1,000 ML IV ONE (06:40)
[2021-07-30] MEDS ORDERED: LIDOCAINE 2% 100MG/5ML SDV (FOR ANES.) As Ordered ONE ×3 (07:02→07:51)
[2021-07-30] MEDS ORDERED: ROCURONIUM BROMIDE 50 MG/5 ML VIAL As Ordered ONE ×2 (07:02→08:11)
[2021-07-30] MEDS ORDERED: propofoL 200 MG/20 ML VIAL As Ordered ONE (07:02)
[2021-07-30] MEDS ORDERED: ONDANSETRON 4MG/2ML VIAL As Ordered ONE (07:03)
[2021-07-30] MEDS ORDERED: fentaNYL 100 MCG/2 ML INJECTION (J3010) As Ordered ONE ×2 (07:03→09:54)
[2021-07-30] MEDS ORDERED: dexameTHASONE 4 MG/ML 1ML VIAL (J1100 PER 1MG) As Ordered ONE (07:03)
[2021-07-30] MEDS ORDERED: MIDAZOLAM INJ 2MG/2ML VIAL (J2250 PER 1MG) As Ordered ONE (07:03)
[2021-07-30] MEDS ORDERED: DESFLURANE 240 ML INHALANT As Ordered ONE (07:08)
[2021-07-30] MEDS ORDERED: BUPIVACAINE/EPIN 0.25% 30 ML VIAL As Ordered ONE (07:10)
[2021-07-30] MEDS ORDERED: BUPIVACAINE HCL 0.25% 10ML VIAL As Ordered ONE (07:11)
[2021-07-30] MEDS ORDERED: BUPIVACAINE LIPOSOME/PF 1.3% 20ML VIAL (13.3MG/ML)(EXPAREL)(C9290 PER1MG) As Ordered ONE (07:11)
[2021-07-30] MEDS ORDERED: PHENYLephrine 500MCG 5ML (100MCG/ML) SYRINGE As Ordered ONE (07:56)
[2021-07-30] MEDS ORDERED: KETOROLAC 60MG 2ML VIAL As Ordered ONE (09:04)
[2021-07-30] MEDS ORDERED: SUGAMMADEX SODIUM 500 MG/5 ML VIAL (BRIDION) As Ordered ONE (09:04)
[2021-07-30] MEDS ORDERED: ACETAMINOPHEN 1000MG 100ML IV BTL (OFIRMEV) (J0131 PER 10MG) As Ordered ONE (09:28)
[2021-07-30] MEDS ORDERED: HYDROmorphone HCL 2 MG/ML 1ML VIAL As Ordered ONE (10:06)
[2021-07-30] MEDS: HYDROMORPHONE HCL 0.5 MG/ 0.5 ML SYRINGE (J1170 PER 1) IV PRN ×4 (10:09→10:44)
[2021-07-30] MEDS ORDERED: LR 1,000 ML IV SCH (10:15)
[2021-07-30] MEDS ORDERED: fentaNYL 100 MCG/2 ML INJECTION (J3010) IV PRN (10:15)
[2021-07-30] MEDS ORDERED: oxyCODONE 5MG TAB PO PRN (10:15)
[2021-07-30] MEDS ORDERED: ONDANSETRON 4MG/2ML VIAL IV PRN (10:15)
[2021-07-30] MEDS ORDERED: NS 1,000 ML IV SCH (11:05)
[2021-07-30] MEDS ORDERED: PERCOCET 5MG/325MG TAB PO PRN ×2 (11:30)
[2021-07-30 12:32] VITALS: BP 142/85
--- NOTE | 2021-07-30 15:02 | RO ---
OPERATIVE NOTE DATE OF OPERATION: 07/30/2021 PREOPERATIVE DIAGNOSIS: Incisional hernia. POSTOPERATIVE DIAGNOSIS: Incisional hernia. PROCEDURE: Robotic-assisted laparoscopic incisional hernia repair with Parietex mesh 10 x 15 cm. SURGEON: Javon Delgado Jr, MD PIPELINE CONSTRUCTION INSPECTOR: Noelle Somers (provided instrument exchange, trocar placement, abdominal wall closure and mesh placement). EBL: Minimal. FLUIDS: Crystalloid. ANESTHESIA: DESCRIPTION OF PROCEDURE: The patient was brought to the operating room, was given general anesthesia. After adequate anesthesia and preoperative antibiotics were given the patient was prepped and draped in usual sterile fashion. A left upper quadrant incision was made with a skin knife. Blunt dissection was carried down to fascia. The fascia was entered with Veress needle into the abdominal cavity, insufflated to 15 mm of pressure. Dilating 8 mm trocar was placed in the left upper quadrant and under direct visualization left lateral and left lower quadrant 5 mm trocars were placed. Once these were all placed the patient was placed in slightly right side down Trendelenburg position. Multiple adhesions of the omentum up against the abdominal wall were taken down with monopolar cut scissors. Once these were all left taken down there was obvious previous laparoscopic incisional hernia repair and mesh that had slid off toward the patient's right side of his abdomen and this is where the top hernia was coming through. However, there was still a little bit of diastasis just at the umbilicus and slightly inferiorly to this but there was no evidence of a hernia in this area. The epigastric area just above the mesh repair had a fascial defect as well as additional fascial defect slightly higher up closer to the falciform ligament. Once these all were taken down the midline was approximated using #0 Stratafix in running manner and both sides of the rectus were able to be brought together at this time under decreased pressure of 10 mm. A 10 x 15 Parietex mesh was sewn in the abdominal wall using 2-0 V-Loc and all trocars were removed under direct visualization. 4-0 Vicryl was used to close the skin. Steri-Strips and dry, sterile dressing was applied. The patient was awakened, extubated and brought to the recovery room awake, alert and hemodynamically stable. Sponge and needle counts correct x2.
== END 2021-07-30 12:51 | disposition home or self-care (01) ==
LOC: M SDC 05:59
PROVIDERS: ATTEND Surgery
DX: K43.2 Incisional hernia without obstruction or gangrene (principal); M62.08 Separation of muscle (nontraumatic), other site; K66.0 Peritoneal adhesions (postprocedural) (postinfection); I10 Essential (primary) hypertension; R06.83 Snoring; G47.30 Sleep apnea, unspecified; E66.01 Morbid (severe) obesity due to excess calories; Z68.41 Body mass index [BMI] 40.0-44.9, adult; Z79.899 Other long term (current) drug therapy
CPT/HCPCS: 49654; C1781; C9290; J0131; J0690; J1100; J1885; J2250; J2370; J2405; J3010; S2900

== ENCOUNTER → 2022-04-20 | Outpatient (REF) | payer BC, OTHER ==
[~2022-04-20] MED LIST changes: -LISI20TA20 PO; +LISI20TA37 PO
== END ==
LOC: M LAB REF 11:23
PROVIDERS: ATTEND Internal Medicine
DX: E78.00 Pure hypercholesterolemia, unspecified (principal)

== ENCOUNTER → 2023-08-16 | Outpatient (CLI) | payer BC, OTHER | LOC: M SLEEP 20:00 | PROVIDERS: ATTEND Nurse Practitioner Adult Health | DX: G47.33 Obstructive sleep apnea (adult) (pediatric) (principal) ==

== ENCOUNTER → 2024-03-27 | Outpatient (REF) | payer OTHER ==
[2024-03-27 14:18] LABS: PERCENT SATURATION 13.7 % (19.7-50.0); PHOSPHORUS LEVEL 3.3 MG/DL (2.5-4.9)
[2024-03-27 14:19] LABS: FERRITIN 254.8 NG/ML (10.5-307.3)
[2024-03-27 14:20] LABS: TOTAL 25(OH) VITAMIN D 30.1 NG/ML (20.0-100.0)
[2024-03-27 14:23] LABS: FOLATE 14.9 NG/ML (>5.4)
== END ==
LOC: M LAB REF 12:24
PROVIDERS: ATTEND Internal Medicine
DX: Z98.84 Bariatric surgery status (principal); K91.2 Postsurgical malabsorption, not elsewhere classified